=== PATIENT | male | born 1985 | race Caucasian/White ===

== ENCOUNTER 2018-11-18 09:28 | Outpatient (REF) | payer MEDICARE, MEDICAID, SELFPAY ==
[2018-11-18 14:36] LABS: Abs Immature Grans 0.01 k/cumm (0.0-0.09); Absolute Basophil Count 0.08 k/cumm (0.0-0.2); Absolute Eosinophil Count 0.72 k/cumm (0.0-0.7); Absolute Lymphocyte Count 3.22 k/cumm (1.2-3.4); Absolute Monocyte Count 0.96 k/cumm (0.11-0.7); Absolute Neutrophil Count 3.08 k/cumm (1.2-6.7); Eosinophils % 8.9; HCT 44.9 % (40.0-50.0); Immature Grans % 0.1; Lymphocytes % 39.9; Mean Corp. HGB Concentration 33.4 g/dL (32.0-36.0); Mean Corpuscular Hemoglobin 29.8 pg (27.0-33.0); Mean Corpuscular Volume 89.3 fL (80-95); Mean Platelet Volume 10.3 fL (8.0-11.0); Monocytes % 11.9; Neutrophils % 38.2; Platelet Count 417 x1000/uL (130-400); RBC 5.03 m/cumm (4.50-6.00); RBC Distribution Width 12.7 % (11.8-14.1); White Blood Cell Count 8.07 k/cumm (4.4-10.8)
[2018-11-18 14:59] LABS: TSH 1.44 uIU/mL (0.358-3.74)
[2018-11-18 15:23] LABS: ESR 8 MM/HR (0-15)
[2018-11-19 10:22] LABS: Cyclic Citrullinated Peptide <2.5 U/mL (<5.0)
[2018-11-19 11:22] LABS: Rheumatoid Factor 8 IU/mL (<12.5)
== END 2018-11-18 09:48 ==
LOC: NCHCN 09:28
PROVIDERS: PCP Nurse Practitioner Family; Visit Provider Nurse Practitioner Family
DX: M25.50 Pain in unspecified joint (principal); R73.9 Hyperglycemia, unspecified; M21.40 Flat foot [pes planus] (acquired), unspecified foot; M25.569 Pain in unspecified knee
CPT/HCPCS: 85652; 86200; 83036; 84443; 85025; 86431

== ENCOUNTER 2019-01-23 12:55 | Outpatient (REF) | payer MEDICARE, MEDICAID, SELFPAY ==
[2019-01-23 16:37] LABS: HCT 46.1 % (40.0-50.0); HGB 15.7 g/dL (13.5-17.5); Lymphocytes % 31.6; Mean Corp. HGB Concentration 34.1 g/dL (32.0-36.0); Mean Corpuscular Hemoglobin 29.6 pg (27.0-33.0); Mean Corpuscular Volume 86.8 fL (80-95); Mean Platelet Volume 9.9 fL (8.0-11.0); Monocytes % 11.9; Neutrophils % 52.5; Platelet Count 499 x1000/uL (130-400); RBC 5.31 m/cumm (4.50-6.00); RBC Distribution Width 12.5 % (11.8-14.1); White Blood Cell Count 8.89 k/cumm (4.4-10.8)
[2019-01-23 16:38] LABS: Abs Immature Grans 0.02 k/cumm (0.0-0.09); Absolute Basophil Count 0.07 k/cumm (0.0-0.2); Absolute Eosinophil Count 0.27 k/cumm (0.0-0.7); Absolute Lymphocyte Count 2.81 k/cumm (1.2-3.4); Absolute Monocyte Count 1.06 k/cumm (0.11-0.7); Absolute Neutrophil Count 4.66 k/cumm (1.2-6.7); Anion Gap 14.3 mmol/L (3-11); BUN 14 mg/dL (7-18); Basophils % 0.8; CO2 24.7 mmol/L (21.0-32.0); CREATININE 1.09 mg/dL (0.70-1.30); Calcium 9.8 mg/dL (8.5-10.1); Chloride 99 mmol/L (98-107); Glucose 99 mg/dL (70-100); Immature Grans % 0.2; Potassium 4.2 mmol/L (3.5-5.1); Sodium 138 mmol/L (136-145)
== END 2019-01-23 13:15 ==
LOC: NCHCN 12:55
PROVIDERS: PCP Nurse Practitioner Family; Visit Provider Nurse Practitioner Family
DX: F41.8 Other specified anxiety disorders (principal)
CPT/HCPCS: 80048; 85025

== ENCOUNTER 2019-04-08 22:20 | Outpatient (REF) | payer MEDICARE, MEDICAID, SELFPAY ==
[2019-04-08 21:50] LABS: Calculated LDL 141; Cholesterol 202 mg/dL (50-200); HDL Cholesterol 33 mg/dL (40-60); Triglyceride 142 mg/dL (30-150)
== END 2019-04-08 22:40 ==
LOC: NCHCN 22:20
PROVIDERS: PCP Nurse Practitioner Family; Visit Provider Nurse Practitioner Family
DX: E78.1 Pure hyperglyceridemia (principal)
CPT/HCPCS: 80061; 83721

== ENCOUNTER 2019-05-17 12:57 | Emergency (ER) | payer MEDICARE, MEDICAID, SELFPAY ==
[2019-05-17 13:07] VITALS: BP 140/93; PULSE 82; RESP 16; TEMP 36.8; O2SAT 99
[2019-05-17 13:46] VITALS: BP 142/90; PULSE 87; RESP 14; O2SAT 98
[2019-05-17 13:47] VITALS: RESP 14
--- NOTE | 2019-05-17 14:13 | ED.GENADUL_ITS ---
Discharge Plan Disposition Patient Disposition: HOME Discharge Details Chief Complaint: GenMedical Clinical Impression: Brain mass Primary Care Provider: Oanh Yang ED Provider: Rafa Samaniego Discharge Instructions Additional Instructions: Please follow-up with your primary care physician. Call on Saturday to arrange timely follow-up. Please follow-up with neurology as scheduled. Please contact your primary care physician to arrange follow-up. Return to the ER for any worsening or new concerning symptoms. 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 Patient does have slightly decreased sensation to light touch right forearm compared to left. Otherwise neurologically intact. Patient and his are significantly anxious about his condition. I am concerned that anxiety is contributing to patient's presentation today . Plan to obtain CT of the head. 16:40 --CT of the head interpreted by radiology: Probable right parietal meningioma. No acute intracranial findings. Mass is noted to be 16 mm partially calcified extra-axial in the right parietal area over the convexity and is most consistent with a benign meningioma. I reviewed the results with the patient. Patient was encouraged to follow-up with his primary care physician and with his neurologist. I explained that he may need additional diagnostic testing i ncluding MRI of the brain which is not available today. He has an appointment scheduled with neurology for next month. I encouraged him to call to confirm this appointment. Encouraged him to return to the ER for any worsening or new concerning symptoms. HPI General Mode of arrival: ambulatory . Date/Time Provider Initiated Documentation: 05/17/19 13:14 . Limitations to Documentation: no limitations . Information obtained by: patient . HPI Narrative: 33-year-old male with history of leukemia as a child status post chemotherapy and radiation to his brain remotely, here with chief complaint of confusion. Patient notes that over the past few months he has had increased confusion. He specifically notes that he feels like a ghost and that at time he loses track of time. He states that time seems to pass quicker than he perceives. Patient notes he was on Abilify a couple months ago and was concerned that this was causing his symptoms. He since stopped this over the past month. He notes that symptoms seem to be worse over the past few weeks. Symptoms are now severe. No modifiers. No associated numbness or weakness. No visual changes. No headache. No fever. Related Data Allergies Allergy/AdvReac Type Severity Reaction Status Date / Time Penicillins Allergy Severe Swelling/Ed Unverified 05/19/19 00:57 carie sertraline HCl [From Zoloft] Allergy Unknown Unverified 05/19/19 00:57 hydroxyzine AdvReac Intermediate Other (See Unverified 05/19/19 00:57 Comment) General Stated Complaint: GenMedical VINCENZO: 4 Review of Systems Review of Systems All systems reviewed & are unremarkable except as noted in HPI and below Constitutional Denies fever(s) and Denies headache(s) ENT Denies headache(s) Cardiovascular Denies chest pain and Denies dyspnea Respiratory Denies dyspnea Gastrointestinal Reports nausea Neurologic Reports as per HPI, Reports confusion, Denies headache(s), Denies seizure-like activity and Denies sensory deficit Psychiatric Reports anxiety, Reports confusion and Denies hallucinations [facility] Social History Smoking/Tobacco Use Status: Former Tobacco Use Alcohol Intake: never Drug use: Daily Substance use type: marijuana Do you feel safe at home: Yes Do you feel safe in your relationship?: Yes Exam Const General: cooperative and no acute distress HENMT Head: normocephalic and atraumatic Mouth: moist mucous membranes Eyes Conjunctivae: normal conjunctivae Sclera: normal sclerae Neck Neck: trachea midline and supple Resp Auscultation: clear to auscultation bilaterally, no rales, no rhonchi and no wheezes Cardio Jugular venous pressure: no JVD Rate: regular rate and not tachycardic Rhythm: regular rhythm GI Palpation: soft, not firm, no guarding, no masses, not rigid and nontender Skin General skin exam: no rashes or lesions noted Neuro General: awake, oriented x3 and tone normal Cranial Nerves: EOM intact bilaterally, facial strength normal, tongue midline, able to rotate head bilaterally, able to elevate shoulders bilaterally and other (rt eye strabismus chronic, chronic decreased visual acui) Cognition: normal cognition Speech: speech normal Gait: normal gait Motor: muscle tone normal throughout and strength 5/5 throughout Sensory Exam: other (mild decrease sensation to light touch RUE compared to LUE) Extrem General: no edema Psych Appearance: grossly normal Course Vital Signs Temperature 36.8 C 05/17/19 13:07 Pulse 82 05/17/19 13:07 Respiratory Rate 16 05/17/19 13:07 Blood Pressure 140/93 H 05/17/19 13:07 Pulse Oximetry 99 05/17/19 13:07 Temperature 36.8 C 05/17/19 13:07 Temperature Source Temporal Artery Scan 05/17/19 13:07 Pulse 87 05/17/19 13:46 Respiratory Rate 14 05/17/19 13:47 Respiratory Effort Non-Labored 05/17/19 13:47 Blood Pressure 142/90 H 05/17/19 13:46 Pulse Oximetry 98 05/17/19 13:46 Oxygen Delivery Method Room Air 05/17/19 13:46 Oxygen Flow Rate 0 05/17/19 13:46 Pain Level 0 05/17/19 13:07
--- NOTE | 2019-05-17 15:25 | DI.CT_ITS ---
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 There is normal wilson-white matter differentiation. No intracranial hemorrhage, acute territorial infarct, midline shift or mass effect is identified. The ventricles are intact. The basilar cisterns are patent. There is a 1.5 x 1.7 hyperdense well-circumscribed extraaxial lesion along the right high parietal convexity. The finding is most suggestive of a meningioma. No midline shift or mass effect results. No fluid levels are seen in the visualized paranasal sinuses. There is mild mucosal thickening seen on various sinuses. The mastoid air cells are well pneumatized. The calvarium is intact. IMPRESSION: 1. No acute intracranial process. 2. Well-circumscribed 1.7 cm hyperdense extraaxial lesion in the high right parietal convexity, most suggestive of a meningioma.
--- NOTE | 2019-05-17 15:35 | DI.VRAD_ITS ---
EXAM: CT Head Without Contrast EXAM DATE/TIME: 05/17/2019 2:13 PM CLINICAL HISTORY: 33 years old, male; Patient HX: Patient loosing track of time, increased confusion. HX of childhood leukemia at age 10. Radiation and chemo. Radiation to brain at age 10. Nothing recent with chemo or radiation. TECHNIQUE: Imaging protocol: Computed tomography images of the head without contrast. Coronal and sagittal reformatted images were created and reviewed. Radiation optimization: All CT scans at this facility use at least one of these dose optimization techniques: automated exposure control; mA and/or kV adjustment per patient size (includes targeted exams where dose is matched to clinical indication); or iterative reconstruction. COMPARISON: No relevant prior studies available. FINDINGS: Brain: Mild cerebral atrophy. No significant white matter changes. No hemorrhage. 16 mm partially calcified extra-axial mass noted in the right parietal area over the convexity. Mass is most consistent with a benign meningioma. Ventricles: Normal. No ventriculomegaly. Bones/joints: Unremarkable. No acute fracture. Sinuses: Mild mucosal thickening, paranasal sinuses. Mastoid air cells: Visualized mastoid air cells are well aerated. No mastoid effusion. Soft tissues: Unremarkable. IMPRESSION: Probable right parietal meningioma. No acute intracranial findings. Dictated and Authenticated by: José Miguel Louis MD. Ordering:MICAELA Craig MD
== END 2019-05-17 16:47 | disposition home or self-care (01) ==
PROVIDERS: Emergency Provider Student in an Organized Health Care Education/Training Program; PCP Nurse Practitioner Family
DX: R90.0 Intracranial space-occupying lesion found on diagnostic imaging of central nervous system (principal); F41.9 Anxiety disorder, unspecified; Z85.6 Personal history of leukemia; Z92.21 Personal history of antineoplastic chemotherapy; Z92.3 Personal history of irradiation
CPT/HCPCS: 99284; 70450

== ENCOUNTER 2019-05-19 00:50 | Emergency (ER) | payer MEDICARE, MEDICAID, SELFPAY ==
[2019-05-19 00:54] VITALS: BP 144/86; PULSE 107; RESP 18; TEMP 36.8; O2SAT 98
--- NOTE | 2019-05-19 01:29 | ED.GENADUL_ITS ---
Discharge Plan Disposition Patient Disposition: HOME Discharge Details Chief Complaint: Sorethroat Clinical Impression: Acute pharyngitis Primary Care Provider: Oanh Yang ED Provider: Rafa Samaniego Home Meds and New Rx's Prescriptions: Discontinued Lyrica 75 mg Capsule 75 mg PO BID RF: 0 Discharge Instructions Instructions: Pharyngitis (ED) Additional Instructions: Please drink plenty of fluids to stay hydrated. Please take ibuprofen over the counter. Take 600mg by mouth every 6 hours as needed for pain/inflammation. Please stop taking Lyrica. It is unclear if your current symptoms are a side effect of this medication. Discussed ongoing dosing of this medication with your doctor. Please contact your primary care physician to arrange follow-up. Call tomorrow. Return to the ER for any worsening or new concerning symptoms. Referrals: Oanh Yang [Primary Care Provider] - Discharge Data Discharge Date/Time-TO BE ENTERED AT DEPARTURE: 05/19/19 01:44 Medical Decision Making 33-year-old male here with acute pharyngitis. Airway intact. Rapid strep test negative. Suspect viral versus less likely reaction to new medication Abilify. Patient took ibuprofen prior to arrival. He was given a dose of Decadron 10 mg orally here. Patient noted significant improvement in symptoms while here in the emergency department. Plan for discharge with outpatient follow-up. Usual and customary discharge instructions were provided. HPI General Mode of arrival: ambulatory . Date/Time Provider Initiated Documentation: 05/19/19 01:06 . Limitations to Documentation: no limitations . Information obtained by: patient and family . HPI Narrative: 33-year-old male presents with chief complaint of sore throat. Patient notes he woke up tonight around midnight with sore throat. Sore throat is moderate. No modifiers. No associated fever. No difficulty swallowing. He notes that he was asleep on his back and felt like he was having trouble breathing in that position. He took some ibuprofen and sitting up he is having no difficulty breathing. No associated rash. Patient notes he recently started Lyrica about 24 hours ago. Related Data Allergies Allergy/AdvReac Type Severity Reaction Status Date / Time Penicillins Allergy Severe Swelling/Ed Unverified 05/19/19 00:57 carie sertraline HCl [From Zoloft] Allergy Unknown Unverified 05/19/19 00:57 hydroxyzine AdvReac Intermediate Other (See Unverified 05/19/19 00:57 Comment) General Stated Complaint: Sorethroat VINCENZO: 4 Review of Systems Constitutional Denies fever(s) ENT Reports as per [facility] Social History Smoking/Tobacco Use Status: Former Tobacco Use Alcohol Intake: never Drug use: Daily Substance use type: marijuana Do you feel safe at home: Yes Do you feel safe in your relationship?: Yes Exam Const General: cooperative and no acute distress HENMT Head: normocephalic Ears: external ears normal, TM's normal bilaterally and mastoids normal General nose exam: external nose normal Mouth: moist mucous membranes Throat: uvula midline, abnormal tonsil bilaterally erythema and hypertrophy 2+, no peritonsillar masses and other (no trismus) Eyes Conjunctivae: normal conjunctivae Sclera: normal sclerae Neck Neck: trachea midline, supple and no lymphadenopathy noted Resp Auscultation: clear to auscultation bilaterally, no rales, no rhonchi and no wheezes Cardio Rate: regular rate and not tachycardic Rhythm: regular rhythm Skin General skin exam: no rashes or lesions noted Neuro General: alert, awake and tone normal Course Vital Signs Temperature 36.8 C 05/19/19 00:54 Pulse 107 H 05/19/19 00:54 Respiratory Rate 18 05/19/19 00:54 Blood Pressure 144/86 H 05/19/19 00:54 Pulse Oximetry 98 05/19/19 00:54 Temperature 36.8 C 05/19/19 00:54 Temperature Source Skin 05/19/19 00:54 Pulse 107 H 05/19/19 00:54 Respiratory Rate 18 05/19/19 00:54 Respiratory Effort Non-Labored 05/19/19 00:56 Blood Pressure 144/86 H 05/19/19 00:54 Blood Pressure Position Sitting 05/19/19 00:54 Pulse Oximetry 98 05/19/19 00:54 Oxygen Delivery Method Room Air 05/19/19 00:54 Oxygen Flow Rate 0 05/19/19 00:54 Pain Level 8 05/19/19 00:54 Lab/Test Results Lab/Test Results: 05/19/19 01:00 Pharynx Streptococcus Screen (CARLOS) - Pending POC Strep Test-JOZEF(Rapid) Start: 05/19/19 01:04 Freq: .Rapid Strep Test Status: Active Protocol: Document 05/19/19 01:11 RD (Rec: 05/19/19 01:11 RD [email or web address]) Strep test-JOZEF(Rapid)-POC POC-Strep test-JOZEF (Rapid) Negative POC-Strep test-JOZEF (Rapid) Negative
[2019-05-19] MEDS: Dexamethasone 10 MG/ML VIAL PO (01:33)
[2019-05-19] MEDS: Acetaminophen 325 MG TAB 650 MG PO (01:33)
== END 2019-05-19 01:44 | disposition home or self-care (01) ==
PROVIDERS: Emergency Provider Student in an Organized Health Care Education/Training Program; PCP Nurse Practitioner Family
DX: J02.9 Acute pharyngitis, unspecified (principal)
CPT/HCPCS: 87880; 99283; 87081; J1100

== ENCOUNTER 2019-05-25 10:45 | Emergency (ER) | payer MEDICARE, SELFPAY ==
[2019-05-25 10:48] VITALS: BP 151/105; PULSE 92; RESP 18; TEMP 37.1; O2SAT 100
--- NOTE | 2019-05-25 11:00 | ED.GENADUL_ITS ---
Discharge Plan Disposition Patient Disposition: HOME Condition: Improving Discharge Details Chief Complaint: GenMedical Clinical Impression: Anxiety Primary Care Provider: Oanh Yang ED Provider: Trey Florez Home Meds and New Rx's Prescriptions: New alprazolam 0.5 mg tablet 0.5 mg PO BID PRN (Reason: anxiety) Qty: 7 RF: 0 No Action trazodone 50 mg Tablet 25 mg PO BID RF: 0 Lyrica 75 mg Capsule 75 mg PO DAILY RF: 0 Discharge Instructions Instructions: Anxiety (ED) Additional Instructions: Follow-up with [facility] on Saturday as planned. May use the prescribed alprazolam for severe panic if needed. You may require further long-term management of your anxiety as we discussed. Continue your plan for follow-up with MRI imaging. Return to the emergency department for any acute concern Medical Decision Making 33-year-old male presents from home complaining of anxiety regarding recent CT scan which showed a small meningioma. He has been referred for further work-up including MRI but has worries that this is not happening fast enough. He has intermittent panic attacks in which he has increased respiratory rate and becomes more and more anxious. He is not had syncope. No new neurologic findings. He does have a referral for follow-up. He also has a follow-up with [facility] this Saturday. I will treat him with a trial of a small number of anxiolytic to be used on a as needed basis only. He understands a further prescriptions to manage his anxiety will have to come from his psychologist, psychiatrist, or primary care physicians HPI General Mode of arrival: ambulatory . Date/Time Provider Initiated Documentation: 05/25/19 10:49 . Limitations to Documentation: no limitations . Information obtained by: patient . History of Present Illness 33 year old M presents to the emergency department with the chief complaint of Anxiety regarding recent CT that showed meningioma, described as moderate, Quality is described as constant, Patient reports radiation to (General). Patient started experiencing this day(s) and it has been constant. No relieving factors improve symptom(s), No exacerbating factors reported . Patient notes denies headaches and nausea/vomiting. Patient did receive the following treatments prior to arrival, none Related Data Home Medications Medication Instructions Recorded Confirmed alprazolam 0.5 mg PO BID PRN #7 tab 05/25/19 pregabalin [Lyrica] 75 mg PO DAILY 05/25/19 05/25/19 trazodone 25 mg PO BID 05/25/19 05/25/19 Previous Rx's Medication Instructions Recorded alprazolam 0.5 mg PO BID PRN #7 tab 05/25/19 Allergies Allergy/AdvReac Type Severity Reaction Status Date / Time Penicillins Allergy Severe Swelling/Ed Unverified 05/25/19 10:52 carie sertraline HCl [From Zoloft] Allergy Unknown Unverified 05/25/19 10:52 hydroxyzine AdvReac Intermediate Other (See Unverified 05/25/19 10:52 Comment) General Stated Complaint: GenMedical VINCENZO: 3 Review of Systems Review of Systems 6 systems reviewed and otherwise - [facility] Medical History Anxiety (Chronic) Social History Smoking/Tobacco Use Status: Former Tobacco Use Alcohol Intake: never Drug use: Daily Substance use type: marijuana Do you feel safe at home: Yes Do you feel safe in your relationship?: Yes Exam Narrative Exam Narrative: GEN: awake, alert, oriented 3. Pleasant, well groomed, inte ractive. HEAD: Normocephalic, atraumatic ENT: Mucous membranes moist, oropharynx unremarkable, External ear exam unremarkable EYES: PERRL, EOMI, mild disconjugate gaze NECK: Full ROM, no SUZANNE, no menigismus CHEST/RESP: Nontender, clear to auscultation bilateral, no wheeze/rhonchi/rales CARDIOVASCULAR: RRR, no murmur, rub keith. 2+ Rad pulse bilateral ABDOMEN: Soft, nontender, no mass. +Bowel sounds EXT: Full ROM, no edema, no rash Neuro: Grossly normal neurologic exam, conversant, interactive. Psych: Speech fluent, thoughts congruent, affect normal Course Vital Signs Temperature 37.1 C 05/25/19 10:48 Pulse 92 H 05/25/19 10:48 Respiratory Rate 18 05/25/19 10:48 Blood Pressure 151/105 H 05/25/19 10:48 Pulse Oximetry 100 05/25/19 10:48 Temperature 37.1 C 05/25/19 10:48 Temperature Source Skin 05/25/19 10:48 Pulse 92 H 05/25/19 10:48 Respiratory Rate 18 05/25/19 10:48 Blood Pressure 151/105 H 05/25/19 10:48 Pulse Oximetry 100 05/25/19 10:48 Oxygen Delivery Method Room Air 05/25/19 10:48 Oxygen Flow Rate 0 05/25/19 10:48 Pain Level 0 05/25/19 10:48
--- NOTE | 2019-05-25 11:25 | NUR.NOTE ---
Nursing Note: patient examined by MD neri, patient discharged with medications, patient home with spouse
== END 2019-05-25 11:15 | disposition home or self-care (01) ==
LOC: ER 11:50
PROVIDERS: Emergency Provider Emergency Medicine; PCP Nurse Practitioner Family
DX: F41.0 Panic disorder [episodic paroxysmal anxiety] (principal); D32.9 Benign neoplasm of meninges, unspecified
CPT/HCPCS: 99283

== ENCOUNTER 2019-05-25 15:14 | Emergency (ER) | payer MEDICARE, MEDICAID, SELFPAY ==
[2019-05-25 15:31] VITALS: BP 148/106; PULSE 86; RESP 20; TEMP 36.8; O2SAT 99
--- NOTE | 2019-05-25 17:45 | W.ED.GENAD ---
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 You may turn the emergency department as needed for reassessment. [facility]errals[facility]Provider [facility]] (Call their office for arrangement of follow-up appointment) Oanh Yang [Primary Care Provider] - (As needed for reassessment or if not improving) Discharge Data Discharge Date/Time-TO BE ENTERED AT DEPARTURE: 05/25/19 18:00 Medical Decision Making Patient presenting to the emergency department for continued complaint of anxiety. Patient states that he attempted to swallow the anxiety pill that was written for him earlier and felt that it got caught in his throat. Physical exam shows no acute findings. Patient has symptoms of mild anxiety but otherwise no specific physical exam findings to warrant any emergent concern. I do feel that patient's condition is psychological in nature and not physical. Patient is here with his significant other who also is having some anxiety issues. Patient is stating that Xanax is what typically works for him but I clearly informed him that we would not be prescribing any more or anti-lytics as he already got one earlier on his visit with Dr. Florez. After thorough discussion of anxiety and stress disorder patient was clear and stable and requesting referral to [facility] for any further discussion of his psychological condition which I feel is warranted. HPI General Mode of arrival: ambulatory. Date/Time Provider Initiated Documentation: 05/25/19 15:58. Limitations to Documentation: no limitations. Information obtained by: patient and RN notes reviewed. History of Present Illness 33 year old M presents to the emergency department with the chief complaint of anxiety, described as moderate and similar to prior episodes, Quality is described as other (denies pain ), Patient started experiencing this day(s) (1) and it has been constant. No relieving factors improve symptom(s), Other factors that worsen symptoms (stress) . Patient did receive the following treatments prior to arrival, other (Xanax) Related Data Home Medications Medication Instructions Recorded Confirmed alprazolam 0.5 mg PO DAILY #7 tab 05/29/19 fluoxetine 20 mg PO DAILY 05/29/19 05/29/19 gabapentin 100 mg PO BID 05/29/19 05/29/19 Previous Rx's Medication Instructions Recorded alprazolam 0.5 mg PO DAILY #7 tab 05/29/19 Allergies Allergy/AdvReac Type Severity Reaction Status Date / Time Penicillins Allergy Severe Swelling/Ed Unverified 05/25/19 10:52 carie sertraline HCl [From Zoloft] Allergy Unknown Unverified 05/25/19 10:52 hydroxyzine AdvReac Intermediate Other (See Unverified 05/25/19 10:52 Comment) General Stated Complaint: Anxiety VINCENZO: 4 Review of Systems Constitutional Denies fever(s) and Denies headache(s) ENT Denies headache(s), Denies hoarseness and Reports other (Feeling of tightness in his throat during anxiety attack) Cardiovascular Reports chest pain (Chest tightness during anxiety attacks), Denies syncope, Denies palpitations and Denies dyspnea Respiratory Denies cough and Denies dyspnea Gastrointestinal Denies abdominal pain, Denies diarrhea, Denies nausea and Denies vomiting Genitourinary Denies dysuria Neurologic Denies syncope and Denies headache(s) Endocrine Denies palpitations [facility] Social History Smoking/Tobacco Use Status: Former Tobacco Use Alcohol Intake: never Drug use: Daily Substance use type: marijuana Do you feel safe at home: Yes Do you feel safe in your relationship?: Yes Exam Const General: cooperative, healthy appearing, comfortable, no acute distress, not diaphoretic and not ill appearing Orientation: alert, awake and oriented x3 HENMT Head: normal to inspection Mouth: oral mucosae normal, lip normal, tongue normal, oropharynx normal, no audible dysphonia, no drooling, no muffled voice and no trismus Throat: posterior oropharynx normal, tonsils normal and uvula midline Neck Neck: normal visual inspection, full ROM, no lymphadenopathy, trachea midline, supple and no anterior neck swelling Carotids: normal carotid upstroke and no bruits Resp Effort & Inspection: normal respiratory effort and able to speak in complete sentences Auscultation: clear to auscultation bilaterally Cardio Jugular venous pressure: no JVD Rate: regular rate Rhythm: regular rhythm Heart Sounds: S1 normal, S2 normal, no click, no gallops, no murmurs and no rubs Bruits: no carotid bruits Pulses: radial pulses present bilaterally 2+ Course Vital Signs Temperature 36.8 C 05/25/19 15:31 Pulse 86 05/25/19 15:31 Respiratory Rate 20 05/25/19 15:31 Blood Pressure 148/106 H 05/25/19 15:31 Pulse Oximetry 99 05/25/19 15:31 Temperature 36.8 C 05/25/19 15:31 Temperature Source Skin 05/25/19 15:31 Pulse 86 05/25/19 15:31 Respiratory Rate 20 05/25/19 15:31 Blood Pressure 148/106 H 05/25/19 15:31 Blood Pressure Position Sitting 05/25/19 15:31 Pulse Oximetry 99 05/25/19 15:31 Oxygen Delivery Method Room Air 05/25/19 15:31 Oxygen Flow Rate 0 05/25/19 15:31 Pain Level 0 05/25/19 15:31
== END 2019-05-25 18:00 | disposition home or self-care (01) ==
PROVIDERS: Emergency Provider Nurse Practitioner Family; PCP Nurse Practitioner Family
DX: F41.0 Panic disorder [episodic paroxysmal anxiety] (principal)
CPT/HCPCS: 99283

== ENCOUNTER 2019-05-29 18:30 | Emergency (ER) | payer MEDICARE, MEDICAID, SELFPAY ==
[2019-05-29 18:36] VITALS: BP 156/88; PULSE 86; RESP 16; TEMP 37.1; O2SAT 98
--- NOTE | 2019-05-29 18:42 | NUR.NOTE ---
Nursing Note: pt ambulated to room 9 without difficulty. steady gait noted. Significant other at bedside.
[2019-05-29 18:47] VITALS: RESP 16
[2019-05-29] MEDS: ALPRAZolam 0.25 MG TAB PO (19:27)
--- NOTE | 2019-05-29 20:06 | NUR.NOTE ---
Nursing Note: pt resting in bed, states that he feels anxious
--- NOTE | 2019-05-29 20:07 | NUR.NOTE ---
Nursing Note: pt resting in stretcher with family at bedside. states that he feels awesome
--- NOTE | 2019-05-29 20:21 | ED.GENADUL_ITS ---
Discharge Plan Disposition Patient Disposition: HOME Discharge Details Clinical Impression: Anxiety Primary Care Provider: Oanh Yang ED Provider: Rafa Samaniego Home Meds and New Rx's Prescriptions: Continued gabapentin 100 mg Capsule 100 mg PO BID RF: 0 fluoxetine 20 mg Capsule 20 mg PO DAILY RF: 0 Changed alprazolam 0.5 mg tablet 0.5 mg PO DAILY Qty: 7 RF: 0 Discharge Instructions Instructions: Anxiety (ED) Additional Instructions: Please follow-up with your doctor. Call on Saturday to arrange timely follow-up. Return to the ER for any worsening or new concerning symptoms. Referrals: Oanh Yang [Primary Care Provider] - Medical Decision Making 33-year-old male with history of PTSD, anxiety disorder, here with anxiety after starting gabapentin. Screening ECG performed by nursing was reviewed and interpreted by me: Normal sinus rhythm 94 bpm, incomplete right bundle branch block noted, horizontal axis, nondiagnostic. Patient notes the only thing that helps his anxiety is Xanax. His psychiatrist has refused to give him Xanax. He was seen here in the emerge department recently and prescribed a short course of Xanax which seemed to help his symptoms. Again today he is experience severe anxiety. I will again provide a short course of Xanax. I instructed him to only use this if it is absolutely necessary for severe anxiety attack like he experienced today. I encouraged him to follow-up with his primary care physician and his psychiatrist. I encouraged him to talk with his psychiatrist about continued prescribing of benzodiazepine given therapeutic benefit. Patient seems agreeable to having pill counts or other contract if there is any concern for abuse or drug diversion -I do not have these concerns after prolonged discussion with the patient. I instructed him to hold gabapentin and discussed ongoing dosing with his physician and psychiatrist. Usual and customary discharge instructions were provided. HPI General Mode of arrival: ambulatory . Date/Time Provider Initiated Documentation: 05/29/19 18:47 . Limitations to Documentation: no limitations . Information obtained by: patient . 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 Patient notes he was started on gabapentin recently and was feeling groggy after taking this today. He then notes that he developed feeling of anxiety and had rapid respirations and tingling in his fingertips and around his lips. Anxiety was severe - felt overwhelming. He is feeling better now although still has some anxiety. Patient denies any swelling. No rash. No nausea or vomiting. No headache. Related Data Home Medications Medication Instructions Recorded Confirmed alprazolam 0.5 mg PO DAILY #7 tab 05/29/19 fluoxetine 20 mg PO DAILY 05/29/19 05/29/19 gabapentin 100 mg PO BID 05/29/19 05/29/19 Previous Rx's Medication Instructions Recorded alprazolam 0.5 mg PO DAILY #7 tab 05/29/19 Allergies Allergy/AdvReac Type Severity Reaction Status Date / Time Penicillins Allergy Severe Swelling/Ed Unverified 05/25/19 10:52 carie sertraline HCl [From Zoloft] Allergy Unknown Unverified 05/25/19 10:52 hydroxyzine AdvReac Intermediate Other (See Unverified 05/25/19 10:52 Comment) General Stated Complaint: Anxiety VINCENZO: 4 Review of Systems Review of Systems All systems reviewed & are unremarkable except as noted in HPI and below Constitutional Denies fever(s) Cardiovascular Denies syncope, Denies dyspnea and Reports other (Patient notes he had some pressure in his chest with anxiety) Respiratory Denies dyspnea Neurologic Denies syncope and Denies focal weakness Psychiatric Reports anxiety [facility] Medical History Anxiety (Chronic) Social History Smoking/Tobacco Use Status: Former Tobacco Use Alcohol Intake: never Drug use: Daily Substance use type: marijuana Do you feel safe at home: Yes Do you feel safe in your relationship?: Yes Exam Const General: cooperative and no acute distress HENMT Head: normocephalic and atraumatic Mouth: moist mucous membranes Throat: posterior oropharynx normal Eyes Conjunctivae: normal conjunctivae Sclera: normal sclerae EOM: EOM intact bilaterally Neck Neck: trachea midline, supple and no lymphadenopathy noted Resp Auscultation: clear to auscultation bilaterally, no rales, no rhonchi and no wheezes Cardio Jugular venous pressure: no JVD Rate: regular rate and not tachycardic Rhythm: regular rhythm GI Palpation: soft, not firm, no guarding, no masses, not rigid and nontender Skin General skin exam: no rashes or lesions noted Neuro General: alert, awake, oriented x3 and tone normal Extrem General: no edema Psych Appearance: grossly normal Mental Status: mental status grossly normal Speech and Movement: speech and movement normal Course Vital Signs Temperature 37.1 C 05/29/19 18:36 Pulse 86 05/29/19 18:36 Respiratory Rate 16 05/29/19 18:36 Blood Pressure 156/88 H 05/29/19 18:36 Pulse Oximetry 98 05/29/19 18:36 Temperature 37.1 C 05/29/19 18:36 Temperature Source Skin 05/29/19 18:36 Pulse 86 05/29/19 18:36 Respiratory Rate 16 05/29/19 18:47 Respiratory Effort Non-Labored 05/29/19 18:47 Respiratory Depth Normal 05/29/19 18:47 Respiratory Pattern Normal 05/29/19 18:47 Blood Pressure 156/88 H 05/29/19 18:36 Blood Pressure Position Supine 05/29/19 18:36 Pulse Oximetry 98 05/29/19 18:36 Oxygen Delivery Method Room Air 05/29/19 18:36 Oxygen Flow Rate 0 05/29/19 18:36
== END 2019-05-29 20:34 | disposition home or self-care (01) ==
PROVIDERS: Emergency Provider Student in an Organized Health Care Education/Training Program; PCP Nurse Practitioner Family
DX: F41.9 Anxiety disorder, unspecified (principal); I45.19 Other right bundle-branch block
CPT/HCPCS: 93005; 99283; 93010

== ENCOUNTER 2019-06-03 19:37 | Emergency (ER) | payer MEDICARE, MEDICAID, SELFPAY ==
[2019-06-03 19:44] VITALS: BP 105/86; PULSE 75; RESP 20; TEMP 36.5; O2SAT 99
[2019-06-03 19:50] VITALS: RESP 18
--- NOTE | 2019-06-03 20:06 | ED.GENADUL_ITS ---
Discharge Plan Disposition Patient Disposition: HOME Condition: Fair Discharge Details Chief Complaint: Anxiety Clinical Impression: Anxiety, Benzodiazepine withdrawal Primary Care Provider: Oanh Yang ED Provider: Ann Cm Home Meds and New Rx's Prescriptions: New alprazolam [Xanax] 0.25 mg tablet 0.25 mg PO BID PRN (Reason: anxiety) Qty: 7 RF: 0 Continued buspirone 5 mg Tablet 5 mg PO BID RF: 0 fluoxetine 20 mg Capsule 20 mg PO DAILY RF: 0 alprazolam 0.5 mg tablet 0.5 mg PO DAILY PRNQty: 7 RF: 0 Discharge Instructions Instructions: Alprazolam (By mouth), Anxiety (ED) Additional Instructions: Encourage hydration. Please make changes to dosing as advised by primary care, take only 1/2 tab of buspirone as advised. You have been prescribed xanax as I am concerned you are withdrawing. Please take this only as prescribed and only as needed. Try to cut back as much as possible. Please call your primary care tomorrow to schedule appointment Saturday for reevaluation. If you develop and new/worsening symptoms please seek care urgently once again. Referrals: Oanh Yang [Primary Care Provider] - Medical Decision Making Patient is a 33 cynthia old male, accompanied by significant other, with c/c of anxiety. Concerned for possible benzodiazepine and marijuana withdrawal. He reports feeling improved, not anxious currently. His feeling of anxiety attack has subsided. He has been using benzodiazepines as precribed in the ER, prior to that from the street, for several months and stopped yesterday. Also stopped marijuana yesterday after being an olympic smoker. Patient and his significant other report they have both stopped and are trying to be more healthy to help with his anxiety. He has started his buspirone. Was advised by PCP to only use 1/2 tab BID for the next week as the first caused him to be very drowsy. He has good insight, denies SI or HI. Concerned for withdrawl. Will prescribed short course of Xanax which the patient will use to cut back his benzo usage. He was given usage guidelines. Advised that this may also be associated with his abrubt marijuana cessation. He has appointment with psychologist next week. Advised f/u with PCP this week. He was given strict return precautions. Reviewed PDMP. All of his questions and concerns were addressed, he is in agreement with this plan. HPI General Mode of arrival: ambulatory . Date/Time Provider Initiated Documentation: 06/03/19 19:38 . Limitations to Documentation: no limitations . Information obtained by: patient, family (significant other) and RN notes reviewed . HPI Narrative: Patient is a 33 year old male with history of anxiety presenting today with c/c of anxiety, feeling shaky, and like he is having an anxiety attack. since being in [facility], symptoms have largely resolved. He reports that he had been using Xanax, largely off the street, for the past several months. State that he would use 1mg daily, on average, and break this over 3-4 doses per day. Reports that he stopped this cold yesterday. Began buspirone today as prescribed by his psychologist. Reports that the first dosing this mornign sedated him. Reports this afternoon he took1/2 dose and is currently feeling much improved. Also reports that he was smoking copious amount of marijuana daily. States this too he stopped cold at the advisement of his psychologist. Denies CP. Is not SOB at this time. Denies exertional dyspnea. Has been seen multiple times here as [place] [facility] [place]. Denies SI or HI. Related Data Home Medications Medication Instructions Recorded Confirmed fluoxetine 20 mg PO DAILY 05/29/19 06/03/19 alprazolam 0.5 mg PO DAILY PRN #7 tab 06/03/19 06/03/19 alprazolam [Xanax] 0.25 mg PO BID PRN #7 tab 06/03/19 buspirone 5 mg PO BID 06/03/19 06/03/19 Previous Rx's Medication Instructions Recorded alprazolam 0.5 mg PO DAILY PRN #7 tab 06/03/19 alprazolam [Xanax] 0.25 mg PO BID PRN #7 tab 06/03/19 Allergies Allergy/AdvReac Type Severity Reaction Status Date / Time Penicillins Allergy Severe Swelling/Ed Unverified 06/03/19 19:47 carie sertraline HCl [From Zoloft] Allergy Unknown Unverified 06/03/19 19:47 hydroxyzine AdvReac Intermediate Other (See Unverified 06/03/19 19:47 Comment) General Stated Complaint: Anxiety VINCENZO: 4 Review of Systems Constitutional Reports as per HPI, Denies chills, Denies fatigue, Denies fever(s), Denies he adache(s) and Denies weakness Eyes Denies change in vision ENT Denies headache(s) Cardiovascular Reports as per HPI, Denies chest pain, Denies lightheadedness, Denies dyspnea and Denies dyspnea on exertion Respiratory Reports as per HPI, Denies cough, Denies dyspnea and Denies dyspnea on exertion Gastrointestinal Reports as per HPI, Denies abdominal pain, Denies change in bowel habits, Denies nausea and Denies vomiting Genitourinary Denies system reviewed and no additional complaints, except as docu (denies any change in urinary habits) Musculoskeletal Denies abnormal gait Integumentary/Breasts Reports as per HPI and Denies rash Neurologic Denies abnormal movements, Denies abnormal speech, Denies abnormal gait, Denies headache(s), Denies paresthesias and Denies weakness Endocrine Denies fatigue PFSH Medical History Anxiety (Chronic) Social History Smoking/Tobacco Use Status: Former Tobacco Use Alcohol Intake: never Drug use: Daily Substance use type: marijuana Details: has been cutting back on marijuana use- was using daily now hasnt used in a few weeks Do you feel safe at home: Yes Do you feel safe in your relationship?: Yes Exam Const General: cooperative, healthy appearing, comfortable, no acute distress, well developed and well groomed Nutritional Appearance: well nourished and overweight Orientation: alert and awake Eyes General: appearance normal, both eyes and all related structures Resp Effort & Inspection: normal respiratory effort, able to speak in complete sentences and no respiratory distress Auscultation: clear to auscultation bilaterally, no rales, no rhonchi and no wheezes Cardio Rate: regular rate Rhythm: regular rhythm Heart Sounds: S1 normal and S2 normal Skin General skin exam: no rashes or lesions noted Trauma: no lacerations or abrasions Neuro General: alert and awake Cognition: normal cognition Speech: speech normal Gait: normal gait Psych Appearance: grossly normal and well kempt Mental Status: mental status grossly normal Speech and Movement: speech and movement normal Mood: congruent mood Affect: normal affect Attitude: cooperative Thought Process: normal Thought Content: normal Insight: insight good Judgment: judgment good Course Vital Signs Temperature 36.5 C 06/03/19 19:44 Pulse 75 06/03/19 19:44 Respiratory Rate 20 06/03/19 19:44 Blood Pressure 105/86 06/03/19 19:44 Pulse Oximetry 99 06/03/19 19:44 Temperature 36.5 C 06/03/19 19:44 Temperature Source Skin 06/03/19 19:44 Pulse 75 06/03/19 19:44 Respiratory Rate 18 06/03/19 19:50 Respiratory Effort 06/03/19 19:50 Respiratory Depth Normal 06/03/19 19:50 Respiratory Pattern Normal 06/03/19 19:50 Blood Pressure 105/86 06/03/19 19:44 Blood Pressure Position Sitting 06/03/19 19:44 Pulse Oximetry 99 06/03/19 19:44 Oxygen Delivery Method Room Air 06/03/19 19:44 Oxygen Flow Rate 0 06/03/19 19:44
[2019-06-03] MEDS: ALPRAZolam 0.5 MG TAB PO (20:48)
== END 2019-06-03 20:51 | disposition home or self-care (01) ==
PROVIDERS: Emergency Provider Physician Assistant; PCP Nurse Practitioner Family
DX: F13.239 Sedative, hypnotic or anxiolytic dependence with withdrawal, unspecified (principal); F41.9 Anxiety disorder, unspecified; F12.23 Cannabis dependence with withdrawal
CPT/HCPCS: 99283

== ENCOUNTER 2019-06-04 16:32 | Emergency (ER) | payer MEDICARE, MEDICAID, SELFPAY ==
[2019-06-04 16:37] VITALS: BP 144/96; PULSE 94; RESP 16; TEMP 36.7; O2SAT 98
--- NOTE | 2019-06-04 17:44 | ED.GENADUL_ITS ---
Discharge Plan Disposition Patient Disposition: HOME Condition: Good Discharge Details Chief Complaint: GenMedical Clinical Impression: Fatigue, Anxiety Primary Care Provider: Oanh Yang ED Provider: Sergey Garcia Home Meds and New Rx's Prescriptions: No Action buspirone 5 mg Tablet 5 mg PO BID RF: 0 alprazolam [Xanax] 0.25 mg tablet 0.25 mg PO BID PRN (Reason: anxiety) Qty: 7 RF: 0 fluoxetine 20 mg Capsule 20 mg PO DAILY RF: 0 alprazolam 0.5 mg tablet 0.5 mg PO DAILY PRNQty: 7 RF: 0 Discharge Instructions Instructions: Anxiety (ED) Additional Instructions: At this time. Intracranial pressures look normal on the ultrasound of your optic nerve and eye. You have a normal neurologic exam and normal vital signs. As we discussed together at this time I feel your excessive fatigue is most likely secondary to too many anxiety medications at once. As we discussed please stop taking the buspirone, continue taking your fluoxetine, and take your Xanax only as absolutely needed. If you have any concerns or questions please do not hesitate to call me here at the emergency department to discuss your concerns. Please follow-up closely with your PCP, and psychiatrist. If you notice any worsening of your symptoms, or any new symptoms such as vomiting, diarrhea, fever, chills, shortness of breath, chest pain, numbness, weakness, or fainting , please return immediately to the emergency department for reevaluation. Please follow up with your primary care provider as soon as possible for reassessment and reevaluation. As always, it was a pleasure participating in your medical care today. Referrals: Oanh Yang [Primary Care Provider] - Discharge Data Discharge Date/Time-TO BE ENTERED AT DEPARTURE: 06/04/19 18:10 Medical Decision Making This is a 33-year-old male with a past medical history of known 1.7 cm meningioma, scheduled outpatient MRI, leukemia as a child, traumatic brain injury, who has had multiple recent a evaluations in the ED for anxiety. He presents today for evaluation of being anxious over fatigue. Patient is chronically on fluoxetine, but recently was started on buspirone as well as Xanax as needed over the last 48 hours. Since taking both of these he has noticed that he has been significantly fatigued. This has caused him to be notably anxious. He denies any other complaints. No new headache, no new numbn ess or tingling. No other complaints whatsoever. Physical exam demonstrates no acute focal neurologic deficits. Bedside ultrasound demonstrates normal ocular ultrasound, including normal optic nerve diameter suggesting no evidence of significant intracranial hypertension. No evidence of papilledema. At this time with no focal neurologic deficits or other acute neurologic findings I feel the signs and symptoms are most likely iatrogenic secondary to the notable increase in medications of buspirone with Xanax in addition to his fluoxetine. No current clinical indication for repeat emergent neuroimaging. We discussed the risks and benefits of potential imaging the patient and family agree that they would like to hold off for the time being. Will recommend that the patient stops his buspirone, and takes Xanax only as needed. I also recommended that he calls here to the ER to personally speak with me over the weekend if I am working if he does have any episodes of anxiety which I would love to help walk him through personally. We also elicited the help of case management, they have discussed with the patient outpatient resources to be used as needed. I have extensively reviewed the treatment plan and discharge instructions with the patient and their family. I have addressed all patient concerns at this time. The patient and family was made aware of what symptoms to monitor for that would warrant a return to the emergency department. Discussed the plan with the patient and family, they demonstrate verbal understanding and agreement with our assessment and plan at this time. HPI General Date/Time Provider Initiated Documentation: 06/04/19 16:43 . HPI Narrative: This is a 33-year-old male with a past medical history of notable anxiety, history of a known meningioma at 1.7 cm with scheduled MRI outpatient, who has had multiple recent visits to the emergency department for anxiety. He presents today for evaluation of being anxious because of fatigue. Patient had been on fluoxetine, was recently started on buspirone, and has been taking as needed Xanax on a regular daily basis. He states that since he started the buspirone and Xanax together yesterday he has been notably fatigued. This is caused him to be very fearful, so he came in for further evaluation. He denies any other acute changes. He denies any fever, chills, numbness, tingling, weakness, chest pain, shortness of breath, vomiting, diarrhea. He denies any new modifying factors. He states that the medications definitely make him feel more fatigued. Related Data Home Medications Medication Instructions Recorded Confirmed fluoxetine 20 mg PO DAILY 05/29/19 06/03/19 alprazolam 0.5 mg PO DAILY PRN #7 tab 06/03/19 06/03/19 alprazolam [Xanax] 0.25 mg PO BID PRN #7 tab 06/03/19 buspirone 5 mg PO BID 06/03/19 06/03/19 Previous Rx's Medication Instructions Recorded alprazolam 0.5 mg PO DAILY PRN #7 tab 06/03/19 alprazolam [Xanax] 0.25 mg PO BID PRN #7 tab 06/03/19 Allergies Allergy/AdvReac Type Severity Reaction Status Date / Time Penicillins Allergy Severe Swelling/Ed Unverified 06/03/19 19:47 carie sertraline HCl [From Zoloft] Allergy Unknown Unverified 06/03/19 19:47 hydroxyzine AdvReac Intermediate Other (See Unverified 06/03/19 19:47 Comment) General Stated Complaint: PsychEval VINCENZO: 4 Review of Systems Review of Systems All systems reviewed & are unremarkable except as noted in HPI and below PFSH Social History Smoking/Tobacco Use Status: Former Tobacco Use Alcohol Intake: never Drug use: Daily Substance use type: marijuana Details: has been cutting back on marijuana use- was using daily now hasnt used in a few weeks Do you feel safe at home: Yes Do you feel safe in your relationship?: Yes Exam Narrative Exam Narrative: 1.Const: Well-nourished, Well-developed, appearing stated age 2.Eyes: PERRL, no conjunctival injection, and symmetrical lids. Notable exotropia for the right 3.ENT: Atraumatic external nose and ears. Moist MM. Neck: Symmetric, trachea midline, No thyromegaly. Patient demonstrates good movement of cervical neck. There is no nuchal rigidity, no nuchal tenderness. Patient is able to flex the neck without any difficulty or significant pain. Negative Kernig's and Brudzinski sign. 4.CVS: +S1/S2, No murmurs or gallops. Peripheral pulses 2+ and equal in all extremities. Brisk capillary refill in all extremities. 5.RESP: Unlabored respiratory effort. Clear to auscultation bilaterally. No wheezes rales or rhonchi 6.GI: Soft, Nontender/Nondistended, No hepatosplenomegaly. No guarding or rebound. 7.MSK: Normocephalic/Atraumatic, Extremities w/o deformity or ttp No cyanosis or clubbing, Normal movement of all extremities 8.Skin: Warm, Dry. No rashes or lesions. 9.Neuro: field spec II-XII grossly intact. Sensation grossly intact, no focal neurologic deficits. All 6 cardinal planes of vision are fully intact. No evidence of rotatory or vertical nystagmus. The patient demonstrated a normal [id number], good dexterity. There was no evidence of dysdiadochokinesia. Patient was able to ambulate without difficulty. There was no wide-based gait. Romberg, and [id number] are both normal on testing. Sensation was intact bilaterally as well as muscle strength bilaterally for all extremities. Patient was able to verbalize butter cup with no slurring, or miss pronunciation. 10.Psych: (AAO) x3. Appropriate mood and affect Course Vital Signs Temperature 36.7 C 06/04/19 16:37 Pulse 94 H 06/04/19 16:37 Respiratory Rate 16 06/04/19 16:37 Blood Pressure 144/96 H 06/04/19 16:37 Pulse Oximetry 98 06/04/19 16:37 Temperature 36.7 C 06/04/19 16:37 Temperature Source Skin 06/04/19 16:37 Pulse 94 H 06/04/19 16:37 Respiratory Rate 16 06/04/19 16:37 Respiratory Effort Non-Labored 06/04/19 16:40 Blood Pressure 144/96 H 06/04/19 16:37 Blood Pressure Position Supine 06/04/19 16:37 Pulse Oximetry 98 06/04/19 16:37 Oxygen Delivery Method Room Air 06/04/19 16:37 Oxygen Flow Rate 0 06/04/19 16:37
--- NOTE | 2019-06-05 18:33 | PDOC.ERCMPRO ---
- If Service Date Differs Date of service: 06/05/19 Time of Service: 18:33 Care Management Progress Note CM met with patient and his significant other at length in the ED. Pj presents with concerns related to his medications and his symptoms of anxiety. He reports he has a psychiatric provider through his primary care Joselyn Gustafson who is prescribing his medication for anxiety. He reports that he was self medicating in the past with Xanax and that he had received some most recently when he came to the ED. He does not like that it makes him feel drowsy he is worried that he will withdraw from it if he stops suddenly. Pj is worried that he is unable to calm himself down when he feels anxious or has a panic attack. He states he does not have a provider or therapist at [facility]. CM listen to Pj and his SO while they processed their frustrations and concerns related his health. CM offered to refer Pj to [facility] for therapist his SO states he does not need talk therapy. CM encouraged Pj and his SO to walk at night and try to use some distraction techniques when he begins to experience anxiety symptoms. Pj states he enjoys his dogs, and walking. CM will refer patient and his SO to [facility] for Healthy living classes and a community health advocate that can connect to resources. CM did contact primary care and request follow up with patient. CM provided contact information for follow up if questions of concerns. 06/05- CM received a call from Pj he states he is feeling overwhelmed and is concerned his medication are increasing his anxiety. CM was able to listen and provide support over the phone including review of medications. CM offered crisis support if he felt that he needed additional support at time of encounter. CM contacted primary care office was closed CM left a voicemail. CM followed up with Pj and his SO he states he is now feeling better and has contacted his oncologist to schedule an appointment for next week. He is happy with referral to [facility] and will await for the contact from them on Saturday. Plan for CM to reconnect with patient next week for follow up.
== END 2019-06-04 18:10 | disposition home or self-care (01) ==
PROVIDERS: Emergency Provider Student in an Organized Health Care Education/Training Program; PCP Nurse Practitioner Family
DX: F41.9 Anxiety disorder, unspecified (principal); R53.83 Other fatigue; T43.595A Adverse effect of other antipsychotics and neuroleptics, initial encounter; Z87.820 Personal history of traumatic brain injury
CPT/HCPCS: 99283

== ENCOUNTER 2019-07-05 12:19 | Emergency (ER) | payer MEDICARE, MEDICAID, SELFPAY ==
--- NOTE | 2019-07-05 12:22 | ED.GENADUL_ITS ---
Discharge Plan Disposition Patient Disposition: HOME Condition: Good Discharge Details Chief Complaint: EyeProblem Clinical Impression: Conjunctivitis Primary Care Provider: José Miguel Bennett ED Provider: Ann Cm Home Meds and New Rx's Prescriptions: Continued fluoxetine 20 mg Capsule 20 mg PO DAILY RF: 0 Discharge Instructions Instructions: Conjunctivitis (ED) Additional Instructions: Your symptoms are most consistent with allergic conjunctivitis at this time. Please continue with the antihistamine eyedrops and follow-up with [facility] at the end of the week if not improving. If you develop discharge, redness of the eye, visual changes, increased pain or other new/worsening symptoms please seek care urgently once again. Referrals: José Miguel Bennett DO [Primary Care Provider] - Medical Decision Making Patient 33-year-old male history of right-sided exotropia, presents today with chief complaint of bilateral eye irritation x2 weeks. Reports this is common gone. Did use an antihistamine [id number] drop today she states did help with symptomatic management. States that the eyes have been intermittently injected. Denies any visual change. No fevers or chills. Reports that when he wakes in the morning he can note the eyes to be crusty. Does not have discharge otherwise with the day. No fevers. No exam, eyes are clear, no injection. He denies any recent trauma. Pupils are equal round reactive. No discharge. Damian reports that he has had similar symptoms historically and notes them to be the same time of year on previous years. Symptoms are most concerning for allergic conjunctivitis. I do not see any evidence of bacterial infection at this time. Advised that he continue the antihistamine drops the sounds to be working well for him. Will follow-up with development executive later this week for reevaluation if symptoms do not improve. He was given strict return precautions. Patient has baseline seasonal allergies. All his questions and concerns were addressed and he is in agreement this plan. HPI General Mode of arrival: ambulatory . Date/Time Provider Initiated Documentation: 07/05/19 12:21 . Limitations to Documentation: no limitations . Information obtained by: patient, family and RN notes reviewed . History of Present Illness 33 year old M presents to the emergency department with the chief complaint of bilateral eye irritation and itching, described as moderate, with intensity rated at 7. Quality is described as aching (itching and irritation), and is localized to the eyes. Patient reports no radiation. Patient started experiencing this week(s) (2) and it has been intermittent. other things that improve symptom(s), (began antihistamine drops today) No exacerbating factors reported . Patient notes no other symptoms.. Patient did receive the following treatments prior to arrival, other (drops as above) Related Data Home Medications Medication Instructions Recorded Confirmed fluoxetine 20 mg PO DAILY 05/29/19 07/05/19 Allergies Allergy/AdvReac Type Severity Reaction Status Date / Time Penicillins Allergy Severe Swelling/Ed Unverified 07/05/19 12:28 carie sertraline HCl [From Zoloft] Allergy Unknown Unverified 07/05/19 12:28 asparaginase Allergy Hives Unverified 07/05/19 12:28 hydroxyzine AdvReac Intermediate Other (See Unverified 07/05/19 12:28 Comment) General VINCENZO: 4 Review of Systems Constitutional Reports as per HPI, Denies chills, Denies fatigue, Denies fever(s) and Denies headache(s) Eyes Reports as per HPI, Denies blurry vision, Denies change in vision, Reports eye discharge (states eyes are crusted in the morning), Reports irritation, Reports itchy eyes, Denies loss of vision, Denies eye pain and Reports requires corrective lenses (does not wear contacts, hx of exotropia in right eye) ENT Denies headache(s) Cardiovascular Reports as per HPI, Denies chest pain and Denies lightheadedness Respiratory Denies cough Integumentary/Breasts Reports as per HPI, Denies rash, Denies skin pain and Denies skin swelling Neurologic Denies headache(s), Denies loss of vision and Denies radicular pain Endocrine Denies fatigue Allergic/Immunologic Reports itchy eyes [facility] Medical History Anxiety (Chronic) Bacterial conjunctivitis of right eye (Acute) Exotropia, right eye (Acute) Hyperopia of left eye with astigmatism (Acute) Lymphocytic leukemia (Acute) 8 years old. 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 Neurocognitive deficits (Acute) Optic atrophy (Acute) Panic disorder (Acute) PSC (posterior subcapsular cataract), right (Acute) PTSD (post-traumatic stress disorder) (Acute) Family History Mother Anxiety Asthma Father Diabetes Social History (Updated 06/26/19 @ 13:17 by Mirlande Duque) Smoking/Tobacco Use Status: Former Tobacco Use Alcohol Intake: never Drug use: Daily Substance use type: marijuana Details: has been cutting back on marijuana use- was using daily now hasnt used in a few weeks Adopted: No Caregiver/Support person: No Foster care: No Household members: significant other Housing: house Do you need help understanding health information?: Rarely current occupation: Disabled Sexually active: Yes Do you think of yourself as: straight/heterosexual Current gender identity: male Do you feel safe at home: Yes Do you feel safe in your relationship?: Yes Exam Const General: cooperative, healthy appearing, comfortable, no acute distress, well developed and well groomed Nutritional Appearance: average body habitus and well nourished Orientation: alert, awake and oriented x3 HENMT Head: normal to inspection, normocephalic and atraumatic Ears: hearing grossly normal bilaterally and external ears normal General nose exam: external nose normal and nares normal Face and sinus: normal facial exam and face symmetric Mouth: oral mucosae normal, lip normal and moist mucous membranes Eyes General: appearance normal, both eyes and all related structures (patient has exotropia to right eye) Visual Donald: normal visual donald by confrontation Alignment and Position: alignment abnormal right exotropia Periorbital: periorbital findings normal Eyelids: eyelids normal Conjunctivae: conjunctivae normal Sclera: sclerae normal Cornea: corneas normal Pupils: PERRL and normal by confrontation EOM: EOM intact bilaterally Resp Effort & Inspection: normal respiratory effort, able to speak in complete sentences and no respiratory distress Skin General skin exam: no rashes or lesions noted Neuro General: alert, awake and oriented x3 Cranial Nerves: CN's II-XI intact bilaterally Cognition: normal cognition Speech: speech normal Gait: normal gait Psych Appearance: grossly normal and well kempt Mental Status: mental status grossly normal Speech and Movement: speech and movement normal
[2019-07-05 12:25] VITALS: BP 141/99; PULSE 99; RESP 16; TEMP 36.6; O2SAT 98
== END 2019-07-05 12:56 | disposition home or self-care (01) ==
PROVIDERS: Emergency Provider Physician Assistant; PCP Family Medicine
DX: H10.13 Acute atopic conjunctivitis, bilateral (principal)
CPT/HCPCS: 99282

== ENCOUNTER 2020-10-11 05:24 | Emergency (ER) | payer MEDICARE, MEDICAID, SELFPAY ==
[2020-10-11 05:29] VITALS: BP 130/81; PULSE 126; RESP 16; TEMP 37.2; O2SAT 96
--- NOTE | 2020-10-11 05:36 | ED.GENADUL_ITS ---
Discharge Plan Disposition Patient Disposition: HOME Condition: Stable Discharge Details Clinical Impression: Pharyngitis Primary Care Provider: José Miguel Bennett ED Provider: Erik Sanchez Home Meds and New Rx's Prescriptions: New azithromycin 500 mg tablet See Rx Instructions .ROUTE .COMPLEX Qty: 6 RF: 0 Continued sildenafil [Viagra] 50 mg tablet 50 mg PO DAILY PRN (Reason: sexual activity) Qty: 10 RF: 0 omeprazole 20 mg capsule,delayed release(DR/EC) 20 mg PO DAILY Qty: 90 RF: 3 alprazolam 0.5 mg tablet 0.5 mg PO DAILY RF: 0 fluoxetine 20 mg capsule 20 mg PO DAILY Qty: 90 RF: 3 albuterol sulfate 90 mcg/actuation HFA aerosol inhaler 2 puff inhalation Q6H PRN (Reason: shortness of breath or wheezing) Qty: 18 RF: 3 Discharge Instructions Instructions: Pharyngitis (ED) Additional Instructions: follow up with your primary care provider if symptoms are not improving within 5 days you can take 1000mg tylenol and 600mg ibuprofen every 6 hours for pain as needed if you have worsening pain, difficulty breathing or inability to swallow liquids return to the emergency department Medical Decision Making 34 yo male comes in with 3 days of sore throat. Denies any fevers, chills, vomit dyspnea or difficulty swallowing. ARrives hd stable speaking in full sentences swallowing normally. His posterior pharynx is erythematous with exudates, midline uvula, no pain over the hyoid or restricted neck movements, no submandibular swelling, no findings to suggest Rpa, captain waiter, epiglotitis nor ludwigs. Exam is consistent with likely strep pharyngitis and will empirically treat for this. He denies any travel and stays at his house so doubt covid. Will have him f/u with his pcp if not improving and return precautions given. He does note a small sore on his tongue which apperas to be a canker sore on the left lateral tongue, no vesicles or fluctuance and is about 0.5cm. Differential Diagnosis Differential Diagnosis: strep, viral pharyngitis HPI General Mode of arrival: ambulatory . Date/Time Provider Initiated Documentation: 10/11/20 05:25 . Limitations to Documentation: no limitations . Information obtained by: patient . History of Present Illness 34 year old M presents to the emergency department with the chief complaint of sore throat, described as moderate, Patient started experiencing this day(s) (3) and it has been constant. No relieving factors improve symptom(s), No exacerbating factors reported . Patient notes no other symptoms.. Patient did receive the following treatments prior to arrival, none Related Data Home Medications Medication Instructions Recorded Confirmed alprazolam 0.5 mg tablet 0.5 mg PO DAILY 07/23/19 10/11/20 omeprazole 20 mg capsule,delayed 20 mg PO DAILY #90 cap 07/27/19 10/11/20 release sildenafil 50 mg tablet 50 mg PO DAILY PRN #10 tab 07/27/19 08/03/19 fluoxetine 20 mg capsule 20 mg PO DAILY #90 cap 06/30/20 10/11/20 albuterol sulfate 90 mcg/actuation 2 puff INHALATION Q6H PRN #18 g 08/09/2009/27 aerosol inhaler azithromycin See Rx Instructions .ROUTE 10/11/20 .COMPLEX #6 tab Previous Rx's Medication Instructions Recorded omeprazole 20 mg capsule,delayed 20 mg PO DAILY #90 cap 07/27/19 release sildenafil 50 mg tablet 50 mg PO DAILY PRN #10 tab 07/27/19 fluoxetine 20 mg capsule 20 mg PO DAILY #90 cap 06/30/20 albuterol sulfate 90 mcg/actuation 2 puff INHALATION Q6H PRN #18 g 08/09/20 aerosol inhaler azithromycin See Rx Instructions .ROUTE 10/11/20 .COMPLEX #6 tab Allergies Allergy/AdvReac Type Severity Reaction Status Date / Time Penicillins Allergy Severe Swelling/Ed Verified 08/03/19 14:34 carie asparaginase Allergy Unknown Hives Verified 08/03/19 14:34 sertraline HCl [From Zoloft] Allergy Unknown black out Verified 08/03/19 14:34 hydroxyzine AdvReac Intermediate Other (See Verified 08/03/19 14:34 Comment) General Stated Complaint: Sorethroat VINCENZO: 3 Review of Systems All systems reviewed & are unremarkable except as noted in HPI and below Constitutional Constitutional: Denies chills, Denies fever(s) and Denies weakness ENT Ears, Nose, Mouth, and Throat: Denies change in voice Cardiovascular Cardiovascular: Denies chest pain and Denies dyspnea Respiratory Respiratory: Denies cough and Denies dyspnea Gastrointestinal Gastrointestinal: Denies abdominal pain, Denies nausea and Denies vomiting Genitourinary Genitourinary: Denies dysuria Musculoskeletal Musculoskeletal: Denies joint swelling Integumentary/Breasts Skin/Breast: Denies rash Neurologic Neurologic: Denies weakness [facility] Medical History (Updated 10/11/20 @ 05:37 by Erik Sanchez MD) Anxiety Bacterial conjunctivitis of right eye Exotropia, right eye Hyperopia of left eye with astigmatism Lymphocytic leukemia 8 years old. 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 Neurocognitive deficits Optic atrophy Panic disorder PSC (posterior subcapsular cataract), right PTSD (post-traumatic stress disorder) Family History Mother Anxiety Asthma Father Diabetes Social History (Updated 07/27/19 @ 15:16 by Claudia Go LPN) Smoking/Tobacco Use Status: Former Tobacco Use Tobacco: How many years used: 13 Smoking risk assessment performed?: Yes Alcohol Intake: never Drug use: Daily Substance use type: marijuana Details: has been cutting back on marijuana use- smokes about 2x/day. Adopted: No Caregiver/Support person: No Foster care: No Household members: significant other Housing: house Number of Children: 0 Communication Needs: Corrective Lenses Education Level: high school Do you need help understanding health information?: Rarely current occupation: Disabled Sexually active: Yes Do you think of yourself as: straight/heterosexual Current gender identity: male What is your relationship status?: living with partner Panel score (0-1 are the most socially isolated patients): 1 What type of physical activity do you participate in: walking Duration: 15-30 minutes/day Frequency: daily Seatbelt use: always Drive intox or ride w/intox limb driver: No Working smoke detector in home: Yes Fire extinguisher in home: Yes Carbon monox detector in home: Yes Do you feel safe at home: Yes Do you feel safe in your relationship?: Yes Exam Const General: no acute distress Orientation: alert HENMT Head: normal to inspection Ears: external ears normal General nose exam: external nose normal Mouth: moist mucous membranes Eyes General: appearance normal, both eyes and all related structures Neck Neck: normal visual inspection Resp Effort & Inspection: normal respiratory effort and able to speak in complete sentences Cardio Rate: regular rate Skin General skin exam: no rashes or lesions noted Neuro General: patient alert and patient oriented x3 Extrem General: normal to inspection Psych Mental Status: mental status grossly normal Course Vital Signs Vital signs: Vital Signs Temperature 37.2 C 10/11/20 05:29 Pulse 126 H 10/11/20 05:29 Respiratory Rate 16 10/11/20 05:29 Blood Pressure 130/81 10/11/20 05:29 Pulse Oximetry 96 10/11/20 05:29 Temperature 37.2 C 10/11/20 05:29 Pulse 126 H 10/11/20 05:29 Respiratory Rate 16 10/11/20 05:29 Respiratory Effort 10/11/20 05:31 Blood Pressure 130/81 10/11/20 05:29 Blood Pressure Position Sitting 10/11/20 05:29 Pulse Oximetry 96 10/11/20 05:29 Pain Level 9 10/11/20 05:29
[2020-10-11] MEDS: Dexamethasone 4 MG TAB 10 MG PO (05:42)
--- NOTE | 2020-10-11 09:56 | NUR.NOTE ---
Nursing Note: verified Rx for azithromycin with [facility] to read 500 mg today, then 250 mg daily for [address] Florez agrees.
== END 2020-10-11 05:45 | disposition home or self-care (01) ==
PROVIDERS: Emergency Provider Emergency Medicine; PCP Family Medicine
DX: J02.0 Streptococcal pharyngitis (principal); K12.0 Recurrent oral aphthae
CPT/HCPCS: 99283; J8540

== ENCOUNTER 2020-10-15 05:23 | Emergency (ER) | payer MEDICARE, MEDICAID, SELFPAY ==
[2020-10-15 05:28] VITALS: BP 134/71; PULSE 89; RESP 18; TEMP 36.6; O2SAT 97
[2020-10-15] MEDS: Benzocaine 20% 60 ML CAN (05:40)
--- NOTE | 2020-10-15 05:40 | ED.GENADUL_ITS ---
Discharge Plan Disposition Patient Disposition: HOME Condition: Good Discharge Details Clinical Impression: Acute herpangina, Mucositis Primary Care Provider: José Miguel Bennett ED Provider: Sergey Garcia Home Meds and New Rx's Prescriptions: Continued fluoxetine 20 mg capsule 20 mg PO DAILY Qty: 90 RF: 3 albuterol sulfate 90 mcg/actuation HFA aerosol inhaler 2 puff inhalation Q6H PRN (Reason: shortness of breath or wheezing) Qty: 18 RF: 3 omeprazole 20 mg capsule,delayed release(DR/EC) 20 mg PO DAILY Qty: 90 RF: 3 Discharge Instructions Instructions: Oral Mucositis (ED) Additional Instructions: You have what is called herpangina which is a viral infection. This will get better with time, but it will take 5 to 7 days for notable improvement. Please use the spray and the Magic mouthwash as needed to help with the pain. Do not swallow the Magic mouthwash. Please avoid any spicy foods, citrus-based foods, sedatives, or carbonated things as this can cause more irritation for the lesions. If you notice any worsening of your symptoms, or any new symptoms such as lesions on your hands or feet, worsening or new lesions, vomiting, diarrhea, fever, chills, shortness of breath, chest pain, numbness, weakness, or fainting , please return immediately to the emergency department for reevaluation. Please follow up with your primary care provider as soon as possible for reassessment and reevaluation. As always, it was a pleasure participating in your medical care today. Referrals: José Miguel Bennett DO [Primary Care Provider] - Medical Decision Making 35-year-old male with a past medical history of PTSD, chronic exotropia, presents today for evaluation of sore throat. He was seen just less than a week ago here in the ED, there is suspected pharyngitis, he was started on azithromycin secondary to history of allergies. He states that since then his sore throat has continued and slightly worsened, and he has developed small lesions on his throat and some small ones on his lips as well. He states that they peaked recently and seem to be getting slightly better at this time but the pain still persist. He denies any fever or chills, he denies any lesions on his hands or feet. He denies any headache chest pain or shortness of breath. No difficulty swallowing aside from mild pain and irritation secondary to the sore throat. No new medications aside from the azithromycin. No other complaints at this time. Physical exam demonstrates small lesions/ulcers in the posterior oropharynx by the uvula, no tonsillar exudate. 2 small lesions in the upper lip. No lesions on the hard palate. No conjunctiva irritation, no lesions on the hands or feet. Signs and symptoms appear clinically identical to herpangina/mucositis at this time. No crusted lesions on the lips, no chapped lips, symptoms inconsistent with Richard-Ant syndrome, or dress syndrome at this time. Bupivacaine spray was used in the posterior oropharynx and patient had complete resolution of his symptoms. As the patient feels that his symptoms are actually starting to slightly improve, I do feel he is reached the apex, and will likely find notable improvement in the next 3 to 5 days. Will give Magic mouthwash here for home use. Recommended stopping azithromycin. Discussed red flags for which to return. I have extensively reviewed the treatment plan and discharge instructions with the patient. I have addressed all patient concerns at this time. The patient was made aware of what symptoms to monitor for that would warrant a return to the emergency department. Discussed the plan with the patient, they demonstrate verbal understanding and agreement with our assessment and plan at this time. HPI General Date/Time Provider Initiated Documentation: 10/15/20 05:25 . HPI Narrative: 35-year-old male with a past medical history of PTSD, chronic exotropia, presents today for evaluation of sore throat. He was seen just less than a week ago here in the ED, there is suspected pharyngitis, he was started on azithromycin secondary to history of allergies. He states that since then h is sore throat has continued and slightly worsened, and he has developed small lesions on his throat and some small ones on his lips as well. He states that they peaked recently and seem to be getting slightly better at this time but the pain still persist. He denies any fever or chills, he denies any lesions on his hands or feet. He denies any headache chest pain or shortness of breath. No di fficulty swallowing aside from mild pain and irritation secondary to the sore throat. No new medications aside from the azithromycin. No other complaints at this time. Related Data Home Medications Medication Instructions Recorded Confirmed fluoxetine 20 mg capsule 20 mg PO DAILY #90 cap 06/30/20 10/15/20 albuterol sulfate 90 mcg/actuation 2 puff INHALATION Q6H PRN #18 g 08/09/20 10/15/20 aerosol inhaler omeprazole 20 mg capsule,delayed 20 mg PO DAILY #90 cap 10/13/20 10/15/20 release Previous Rx's Medication Instructions Recorded fluoxetine 20 mg capsule 20 mg PO DAILY #90 cap 06/30/20 albuterol sulfate 90 mcg/actuation 2 puff INHALATION Q6H PRN #18 g 08/09/20 aerosol inhaler omeprazole 20 mg capsule,delayed 20 mg PO DAILY #90 cap 10/13/20 release Allergies Allergy/AdvReac Type Severity Reaction Status Date / Time Penicillins Allergy Severe Swelling/Ed Verified 10/15/20 05:42 carie asparaginase Allergy Unknown Hives Verified 10/15/20 05:42 sertraline HCl [From Zoloft] Allergy Unknown black out Verified 10/15/20 05:42 hydroxyzine AdvReac Intermediate Other (See Verified 10/15/20 05:42 Comment) General Stated Complaint: Sorethroat VINCENZO: 4 Review of Systems All systems reviewed & are unremarkable except as noted in HPI and below PFSH Medical History Anxiety Bacterial conjunctivitis of right eye Exotropia, right eye Hyperopia of left eye with astigmatism Lymphocytic leukemia 8 years old. 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 Neurocognitive deficits Optic atrophy Panic disorder PSC (posterior subcapsular cataract), right PTSD (post-traumatic stress disorder) Family History Mother Anxiety Asthma Father Diabetes Social History Smoking/Tobacco Use Status: Former Tobacco Use Tobacco: How many years used: 13 Smoking risk assessment performed?: Yes Alcohol Intake: never Drug use: Daily Substance use type: marijuana Details: has been cutting back on marijuana use- smokes about 2x/day. Adopted: No Caregiver/Support person: No Foster care: No Household members: significant other Housing: house Number of Children: 0 Communication Needs: Corrective Lenses Education Level: high school Do you need help understanding health information?: Rarely current occupation: Disabled Sexually active: Yes Do you think of yourself as: straight/heterosexual Current gender identity: male What is your relationship status?: living with partner Panel score (0-1 are the most socially isolated patients): 1 What type of physical activity do you participate in: walking Duration: 15-30 minutes/day Frequency: daily Seatbelt use: always Drive intox or ride w/intox medical delivery driver: No Working smoke detector in home: Yes Fire extinguisher in home: Yes Carbon monox detector in home: Yes Do you feel safe at home: Yes Do you feel safe in your relationship?: Yes Exam Narrative Exam Narrative: 1.Const: Well-nourished, Well-developed, appearing stated age 2.Eyes: PERRL, no conjunctival injection, and symmetrical lids. No conjunctivitis 3.ENT: Atraumatic external nose and ears. Moist MM. Neck: Symmetric, trachea midline, No thyromegaly. Posterior oropharynx demonstrates a few small ulcerative lesions around the uvula and towards the tonsils. No tonsillar exudate. 1 or 2 small lesions in the upper lip, no other significant abnormalities. No bleeding. No lesions on the hard palate. 4.CVS: +S1/S2, No murmurs or gallops. Peripheral pulses 2+ and equal in all extremities. Brisk capillary refill in all extremities. 5.RESP: Unlabored respiratory effort. Clear to auscultation bilaterally. No wheezes rales or rhonchi 6.GI: Soft, Nontender/Nondistended, No hepatosplenomegaly. No guarding or rebound. 7.MSK: Normocephalic/Atraumatic, Extremities w/o deformity or ttp No cyanosis or clubbing, Normal movement of all extremities 8.Skin: Warm, Dry. No rashes or lesions. No lesions or ulcers on the hands or feet or chest. 9.Neuro: central office installer II-XII grossly intact. Sensation grossly intact, no focal n eurologic deficits. 10.Psych: (AAO) x3. Appropriate mood and affect Course Vital Signs Vital signs: Vital Signs Temperature 36.6 C 10/15/20 05:28 Pulse 89 10/15/20 05:28 Respiratory Rate 18 10/15/20 05:28 Blood Pressure 134/71 10/15/20 05:28 Pulse Oximetry 97 10/15/20 05:28 Temperature 36.6 C 10/15/20 05:28 Temperature Source Skin 10/15/20 05:28 Pulse 89 10/15/20 05:28 Respiratory Rate 18 10/15/20 05:28 Respiratory Effort Non-Labored 10/15/20 05:38 Blood Pressure 134/71 10/15/20 05:28 Blood Pressure Position Sitting 10/15/20 05:28 Pulse Oximetry 97 10/15/20 05:28 Oxygen Delivery Method Room Air 10/15/20 05:28 Oxygen Flow Rate 0 10/15/20 05:28 Pain Level 10 10/15/20 05:28
[2020-10-15] MEDS: Magic Mouthwash 119 ML BTL 50 ML PO (06:01)
--- NOTE | 2020-10-16 11:45 | ED.FU.B_ITS ---
Patient's friend and mac operator Toya called the ED today to state that he needed additional Magic mouthwash. Patient was given a bottle of Magic mouthwash to go on his visit yesterday. He states he has been using it every hour. The instructions are to take 5 to 10 mL every 6 hours which she states she was unaware of. He was diagnosed with herpangina and is continuing to have pain. He is advised to continue to use Hurricaine spray as needed and directed. They were looking for a prescription for Magic mouthwash which could be covered by his insurance. I called his pharmacy [facility] in [place] and spoke with the pharmacist Flor. She states Magic mouthwash is not covered by his insurance and would cost $50. This was discussed with patient and Toya and they would not be able to pay for this. Flor states that there is another option in which you can call in a prescription for lidocaine viscous and patient can purchase liquid Benadryl and Maalox and the pharmacist will walk them through the mixing and dosing instructions. After discussion with Flor, a prescription for 2 to 3 mL of lidocaine viscous p.o. every 6 hours, swish and spit, dispense 50 mL with recommendations and instructions to mix with equal amounts of liquid Benadryl and Maalox to be administered every 6 hours as needed for pain was discussed. Flor states she will have a bottle of liquid Benadryl and Maalox at the pharmacy station and she will instruct patient and Toya how to administer this medication.
== END 2020-10-15 06:12 | disposition home or self-care (01) ==
PROVIDERS: Emergency Provider Student in an Organized Health Care Education/Training Program; PCP Family Medicine
DX: B08.5 Enteroviral vesicular pharyngitis (principal); K12.39 Other oral mucositis (ulcerative)
CPT/HCPCS: 99283

== ENCOUNTER 2020-10-17 16:20 | Outpatient (CLI) | payer MEDICARE, MEDICAID, SELFPAY ==
[2020-10-17 12:26] LABS: Abs Immature Grans 0.06 10^3/uL (0.0-0.06); Absolute Basophil Count 0.05 10^3/uL (0.0-0.2); Absolute Eosinophil Count 0.97 10^3/uL (0.0-0.7); Absolute Lymphocyte Count 3.11 10^3/uL (1.2-3.4); Absolute Monocyte Count 0.81 10^3/uL (0.1-0.8); Absolute Neutrophil Count 4.84 10^3/uL (1.2-6.7); Basophils % 0.5; Eosinophils % 9.9; HCT 47.6 % (40.0-50.0); HGB 15.8 g/dL (13.5-17.5); Immature Grans % 0.6; Lymphocytes % 31.6; MCH 29.1 pg (27.0-33.0); MCHC 33.2 % (32.0-36.0); MCV 87.7 fL (80-95); MPV 9.3 fL (8.0-11.0); Monocytes % 8.2; Neutrophils % 49.2; Nucleated RBC 0 %; Platelet Count 421 10^3/uL (130-400); RBC 5.43 10^6/uL (4.36-5.78); RDW-SD 38.5 fL; WBC 9.84 10^3/uL (4.4-10.8)
== END 2020-10-17 16:40 ==
PROVIDERS: PCP Family Medicine; Visit Provider Family Medicine
DX: B08.5 Enteroviral vesicular pharyngitis (principal)
CPT/HCPCS: 36415; 85025

== ENCOUNTER 2021-05-13 23:01 | Emergency (ER) | payer MEDICARE, MEDICAID, SELFPAY ==
--- NOTE | 2021-05-13 23:00 | DI.CT_ITS ---
Exam(s) CT ABDOMEN PELVIS W EXAM: CT ABDOMEN PELVIS W CLINICAL HISTORY: lower abdominal pain, vomiting, diarrhea, fever. TECHNIQUE: Imaging Protocol: Axial computed tomography images with coronal and sagittal reformatted images were created and reviewed CONTRAST MATERIAL: Intravenous: Omnipaque 100cc Oral: None COMPARISON: No exams were available for comparison FINDINGS: VISUALIZED LUNG BASES: There is mild infiltrate in the lingular segment of the left lung.. There are no pleural effusions. ABDOMEN: There is no ascites. LIVER: There are no focal hepatic lesions evident . GALLBLADDER/BILIARY: No obvious gallbladder pathology. CBD is not dilated. PANCREAS: No evidence of pancreatic mass nor dilatation of the pancreatic duct. SPLEEN: Spleen is not enlarged. No obvious intrasplenic lesions. Splenic and portal veins are paten t. ADRENALS: There are no significant adrenal masses. KIDNEYS:In the lateral cortex of the right kidney there is an 11 x 10 millimeter fat containing benig n appearing angiomyolipoma. No other focal right kidney findings. There is a small cyst in the medi al cortex of the left kidney which measures 7 millimeters and an even smaller cysts seen in the later al cortex. No solid renal masses. No calculi nor hydronephrosis.. ABDOMINAL AORTA: Abdominal aorta is not enlarged. Mild calcified plaque is noted in the common iliac arteries bilaterally in this relatively young patient. LYMPH NODES:There is no retroperitineal nor paraaortic adenopathy. ABDOMINAL WALL: No evidence of significant anterior abdominal wall hernia. GI: In the right-side of the abdomen there is an air-filled small bowel loop located just below the h epatic flexure of the colon. However, there is no bowel wall edema at this level. No adjacent mesen teric vascular engorgement, and no free fluid. PELVIS: GI: No evidence of appendicitis.No evidence of sigmoid diverticulitis. LYMPH NODES: There is no intrapelvic nor inguinal adenopathy. REPRODUCTIVE: Prostate not enlarged. Seminal vesicles unremarkable. URINARY BLADDER: No calculi nor obvious masses evident OSSEOUS: There is a sclerotic bone island in the left iliac bone. Sacroiliac joints appear unremarka ble. IMPRESSION: 1. Nonspecific bowel findings as described above. There is no evidence of true bowel obstruction. N o free air. No abscess. No evidence of acute appendicitis. No diverticulitis 2. Small benign angiomyolipoma in the right kidney and small cysts in the opposite-left kidney. Thes e are benign findings. No renal calculi nor hydronephrosis. 3. Mild infiltrate is noted in the anterior left lung base-lingular segment. There are no pleural ef fusions. 4. There is no ascites. RADIATION DOSE DELIVERED: 905.76mGy.cm Total DLP DATA REPOSITORY: All CT scans at this facility are submitted to the National Radiology Data Registry (NRDR) Dose Index Registry (DIR) with the [employer] (A[employer]). RADIATION OPTIMIZATION: All CT scans at this facility use at least one of these dose optimization te chniques: automated exposure control; mA and/or kV adjustment per patient size (includes targeted exa ms where dose is matched to clinical indication); or iterative reconstruction.
[2021-05-13 23:09] VITALS: BP 127/78; PULSE 114; RESP 20; TEMP 37.2; O2SAT 93
--- NOTE | 2021-05-13 23:19 | DI.RAD_ITS ---
Exam(s) XR CHEST 1V IN DI DEPT EXAM: XR CHEST 1V IN DI DEPT CLINICAL HISTORY: sob, cough, fever. TECHNIQUE: 2D digital imaging was performed. COMPARISON: CR CHEST 2 VIEWS PA,LAT from 12/10/2015 FINDINGS: Heart size is normal. The mediastinum is not widened. No confluent infiltrates nor pleural effusions. No pneumothorax. No pulmonary edema. IMPRESSION: No acute pulmonary findings on this single AP portable view of the chest. DATA REPOSITORY: RADIATION DOSE DELIVERED: All CT scans at this facility use at least one of these dose optimization techniques: automated exposure control; mA and/or kV adjustment per patient size (includes targeted e xams where dose is matched to clinical indication); or iterative reconstruction.
[2021-05-13 23:30] VITALS: RESP 18; RESP 8
[2021-05-13] MEDS: Albuterol/Ipratropium 3 ML UPD VIAL 6 ML UPD (23:30)
--- NOTE | 2021-05-13 23:30 | ED.GENADUL_ITS ---
Discharge Plan Disposition Patient Disposition: HOME Condition: Good Discharge Details Clinical Impression: Community acquired pneumonia, Enteritis Primary Care Provider: José Miguel Bennett ED Provider: Sergey Garcia Home Meds and New Rx's Prescriptions: New azithromycin 250 mg tablet 250 mg PO DAILY 4 Days Qty: 4 RF: 0 dicyclomine 10 mg capsule 10 mg PO TID Qty: 10 RF: 0 Continued fluoxetine 20 mg capsule 20 mg PO DAILY Qty: 90 RF: 3 albuterol sulfate 90 mcg/actuation HFA aerosol inhaler 2 puff inhalation Q6H PRN (Reason: shortness of breath or wheezing) Qty: 18 RF: 3 omeprazole 20 mg capsule,delayed release(DR/EC) 20 mg PO DAILY Qty: 90 RF: 3 Discharge Instructions Instructions: Community Acquired Pneumonia (ED), Enteritis (ED) Additional Instructions: At this time you have evidence of mild community-acquired pneumonia. We have sent a prescription for azithromycin and antibiotic to your local pharmacy. Please pick this up and take it as directed. Please stick with an easy diet of soup, rice, bananas, and oats. Please take Tylenol and Motrin as needed for fever. If you notice any worsening of your symptoms, or any new symptoms such as vomiting, diarrhea, fever, chills, shortness of breath, chest pain, numbness, weakness, or fainting , please return immediately to the emergency department for reevaluation. Please follow up with your primary care provider as soon as possible for reassessment and reevaluation. As always, it was a pleasure participating in your medical care today. Referrals: José Miguel Bennett DO [Primary Care Provider] - Medical Decision Making This is a very pleasant 35-year-old male with a past medical history of chronic exotropia in the right eye, neurocognitive deficits, PTSD, lymphocytic leukemia, anxiety and panic disorder, who presents today for evaluation of abdominal pain mild cough fever and chills. Patient has not gotten his Covid vaccinations secondary to chronic amino insufficiencies. Patient states that for the last 3 days he has had mild nausea and vomiting, diarrhea and constipation, mild abdominal bloating, and pain in the lower abdomen. He denies hematemesis hematochezia melena or acholic stool. He also admits to mild fever and chills at home, lasting yesterday and the day before but denies any fever today. He has a mild cough that started today but denies any shortness of breath. He does have mild reactive airway, and feels that his cough is attributed to his asthma. He denies any other complaints at this time. He denies any loss of taste or smell. Physical exam demonstrates a well-appearing male, mild wheeze in the right lung field, generalized mild abdominal tenderness. No genital tenderness. Patient does look mildly dehydrated. Symptoms are likely secondary to mild enteritis, or viral etiology. Covid is on the differential but less likely. Generalized abdominal pain could certainly also include slightly atypical appendicitis versus enteritis or less likely obstruction. Will get CT imaging to rule out acute process, get a chest x-ray, gently rehydrate, monitor closely and reassess. Patient denies any red flags for diarrhea like blood, foreign travel, camping, or other sick contacts. No recent antibiotic use to suggest C. difficile. 1:27 AM Laboratory work-up is returned, no white count, no bandemia. Lactate normal, electrolytes normal, creatinine and BUN suggest a picture of mild dehydration. Lipase normal. Covid test negative. CT scan per virtual radiology demonstrates evidence of mild enterocolitis, no evidence of obstruction perforation or abscess. There is also mild bronchitis and mild concern for atypical pneumonia. Patient feels much better, tolerating p.o. well. Patient would like to go home. Will give 500 mg of azithromycin here, and a prescription for home. Suspect likely viral etiology for acute gastroenteritis with a mild atypical bacterial etiology for the pneumonia. Patient has had no episodes of diarrhea here. Symptoms appear inconsistent with life-threatening infectious diarrhea. Discussed red flags for which to return. I have extensively reviewed the treatment plan and discharge instructions with the patient. I have addressed all patient concerns at this time. The patient was made aware of what symptoms to monitor for that would warrant a return to the emergency department. Discussed the plan with the patient, they demonstrate verbal understanding and agreement with our assessment and plan at this time. The documentation in this chart was dictated using [employer] dictation software. Please excuse any dictation errors. FINDINGS: Lungs: Peripheral reticulonodular densities in the lingula and lateral left base concerning for nodular infiltrates, consider atypical organisms. Heart: Heart size normal. Mediastinal space: The visualized distal esophagus is normal. Liver: Normal contour. No mass lesions. No intrahepatic biliary ductal dilatation. Gallbladder and bile ducts: Normal. No calcified stones. No ductal dilation. Pancreas: Normal. No inflammatory changes or ductal dilation. Spleen: Normal. No splenomegaly. Adrenal glands: Normal. No adrenal mass. Kidneys and ureters: No acute abnormalities. No hydronephrosis or hydroureter. No urinary tract stones are identified. 13 mm fat density angiomyolipoma in the right renal cortex which does not require further evaluation.There are multiple simple left renal cortical cysts. No further imaging evaluation is required. Stomach and bowel: The stomach is largely contracted without gross abnormality. There is excessive fluid content in the distal small bowel and colon, consistent with diarrheal state and possibly mild enterocolitis. No small bowel dilatation or transition point suggestive of bowel obstruction was identified. No evidence of perforation or abscess. Appendix: The appendix is normal in caliber and demonstrates no evidence of appendicitis. Intraperitoneal space: No free fluid or air. Vasculature: No acute process. No abdominal aortic aneurysm. Minor calcific atherosclerosis in the bilateral iliac arteries. Lymph nodes: No adenopathy. Urinary bladder: Unremarkable as visualized. Reproductive: Unremarkable as visualized. Bones/joints: No acute osseous abnormalities. Soft tissues: Unremarkable. Other findings: Central bronchial wall thickening partially visualized suggest ing an element of bronchitis. IMPRESSION: 1. Findings suggestive of mild generalized enterocolitis and diarrheal state. No evidence of bowel obstruction, perforation, or abscess. 2. Central bronchial wall thickening in the lung bases suggesting an element of bronchitis, with peripheral reticulonodular infiltrates in the lingula and lateral left lung base concerning for atypical pneumonia or possibly chronic small airways disease. 3. Additional non-emergent findings detailed above. Thank you for allowing us to participate in the care of your patient. Dictated and Authenticated by: Franco Sifuentes MD 05/14/2021 1:12 AM Eastern Time ([place] & [place]) FINDINGS: Lungs: Normal pulmonary expansion. Pulmonary vasculature grossly normal. Mild peribronchial thickening and perihilar stranding suggesting possible bronchitis. Minor left perihilar alveolar opacity could represent subsegmental atelectasis or perihilar pneumonia. Pleural spaces: No pleural effusion. No pneumothorax. Heart/Mediastinum: Heart size normal. No tracheal/mediastinal shift. Bones/joints: No acute osseous abnormalities are identified. IMPRESSION: 1. Bilateral bronchial wall thickening and perihilar streaking suggesting bronch itis. 2. Patchy left perihilar alveolar opacities could represent subsegmental atelectasis or mild perihilar pneumonia. Thank you for allowing us to participate in the care of your patient. Dictated and Authenticated by: Franco Sifuentes MD 05/14/2021 1:05 AM Eastern Time ([place] & [place]) HPI General Date/Time Provider Initiated Documentation: 05/13/21 23:03 . HPI Narrative: This is a very pleasant 35-year-old male with a past medical history of chronic exotropia in the right eye, neurocognitive deficits, PTSD, lymphocytic leukemia, anxiety and panic disorder, who presents today for evaluation of abdominal pain mild cough fever and chills. Patient has not gotten his Covid vaccinations secondary to chronic amino insufficiencies. Patient states that for the last 3 days he has had mild nausea and vomiting, diarrhea and constipation, mild abdominal bloating, and pain in the lower abdomen. He denies hematemesis hematochezia melena or acholic stool. He also admits to mild fever and chills at home, lasting yesterday and the day before but denies any fever today. He has a mild cough that started today but denies any shortness of breath. He does have mild reactive airway, and feels that his cough is attributed to his asthma. He denies any other complaints at this time. He denies any loss of taste or smell. Related Data Home Medications Medication Instructions Recorded Confirmed fluoxetine 20 mg capsule 20 mg PO DAILY #90 cap 06/30/20 10/15/20 albuterol sulfate 90 mcg/actuation 2 puff INHALATION Q6H PRN #18 g 08/09/20 10/15/20 aerosol inhaler omeprazole 20 mg capsule,delayed 20 mg PO DAILY #90 cap 10/13/20 10/15/20 release azithromycin 250 mg PO DAILY 4 Days #4 tab 05/14/21 dicyclomine 10 mg PO TID #10 cap 05/14/21 Previous Rx's Medication Instructions Recorded fluoxetine 20 mg capsule 20 mg PO DAILY #90 cap 06/30/20 albuterol sulfate 90 mcg/actuation 2 puff INHALATION Q6H PRN #18 g 08/09/20 aerosol inhaler omeprazole 20 mg capsule,delayed 20 mg PO DAILY #90 cap 10/13/20 release azithromycin 250 mg PO DAILY 4 Days #4 tab 05/14/21 dicyclomine 10 mg PO TID #10 cap 05/14/21 Allergies Allergy/AdvReac Type Severity Reaction Status Date / Time Penicillins Allergy Severe Swelling/Ed Verified 05/13/21 23:13 carie asparaginase Allergy Unknown Hives Verified 05/13/21 23:13 sertraline HCl [From Zoloft] Allergy Unknown black out Verified 05/13/21 23:13 hydroxyzine AdvReac Intermediate Other (See Verified 05/13/21 23:13 Comment) General Stated Complaint: Nausea/Vomit/Diar VINCENZO: 3 Review of Systems All systems reviewed & are unremarkable except as noted in HPI and below PFSH Medical History (Updated 05/14/21 @ 01:34 by Sergey Garcia DO) Anxiety Bacterial conjunctivitis of right eye Exotropia, right eye Hyperopia of left eye with astigmatism Lymphocytic leukemia 8 years old. 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 Neurocognitive deficits Optic atrophy Panic disorder PSC (posterior subcapsular cataract), right PTSD (post-traumatic stress disorder) Family History Mother Anxiety Asthma Father Diabetes Social History Smoking/Tobacco Use Status: Former Tobacco Use Tobacco: How many years used: 13 Smoking risk assessment performed?: Yes Alcohol Intake: never Drug use: Daily Substance use type: marijuana Details: has been cutting back on marijuana use- smokes about 2x/day. Adopted: No Caregiver/Support person: No Foster care: No Household members: significant other Housing: house Number of Children: 0 Communication Needs: Corrective Lenses Education Level: high school Do you need help understanding health information?: Rarely current occupation: Disabled Sexually active: Yes Do you think of yourself as: straight/heterosexual Current gender identity: male What is your relationship status?: living with partner Panel score (0-1 are the most socially isolated patients): 1 What type of physical activity do you participate in: walking Duration: 15-30 minutes/day Frequency: daily Seatbelt use: always Drive intox or ride w/intox ems driver: No Working smoke detector in home: Yes Fire extinguisher in home: Yes Carbon monox detector in home: Yes Do you feel safe at home: Yes Do you feel safe in your relationship?: Yes Exam Narrative Exam Narrative: 1.Const: Well-nourished, Well-developed, appearing stated age 2.Eyes: PERRL, no conjunctival injection, and symmetrical lids. 3.ENT: Atraumatic external nose and ears. Moist MM. Neck: Symmetric, trachea midline, No thyromegaly. 4.CVS: +S1/S2, No murmurs or gallops. Peripheral pulses 2+ and equal in all extremities. Brisk capillary refill in all extremities. 5.RESP: Unlabored respiratory effort. Minimal wheeze in the right lower lung echols, no rhonchi or rales. 6.GI: Soft, mild bloating, no significant distention. Mild lower abdominal tenderness. No focal tenderness in the right lower or right upper quadrant. No guarding or rebound. No testicular tenderness. 7.MSK: Normocephalic/Atraumatic, Extremities w/o deformity or ttp No cyanosis or clubbing, Normal movement of all extremities 8.Skin: Warm, Dry. No rashes or lesions. 9.Neuro: rehabilitation caseworker II-XII grossly intact. Sensation grossly intact, no focal neurologic deficits. 10.Psych: (AAO) x3. Appropriate mood and affect Course Vital Signs Vital signs: Vital Signs Temperature 37.2 C 05/13/21 23:09 Pulse 114 H 05/13/21 23:09 Respiratory Rate 20 05/13/21 23:09 Blood Pressure 127/78 05/13/21 23:09 Pulse Oximetry 93 05/13/21 23:09 Temperature 37.2 C 05/13/21 23:09 Temperature Source Temporal Artery Scan 05/13/21 23:09 Pulse 114 H 05/13/21 23:09 Respiratory Rate 20 05/13/21 23:09 Blood Pressure 127/78 05/13/21 23:09 Blood Pressure Position Sitting 05/13/21 23:09 Pulse Oximetry 93 05/13/21 23:09 Oxygen Delivery Method Room Air 05/13/21 23:09 Oxygen Flow Rate 0 05/13/21 23:09 Lab/Test Results Lab/Test Results: 05/13/21 23:15 Blood Blood Culture - Pending 05/13/21 23:15 Blood Blood Culture - Pending
[2021-05-13 23:48] LABS: Lactate 0.8 mmol/L (0.6-1.4)
[2021-05-13 23:49] LABS: Abs Immature Grans 0.01 10^3/uL (0.0-0.06); Absolute Basophil Count 0.03 10^3/uL (0.0-0.2); Absolute Eosinophil Count 0.02 10^3/uL (0.0-0.7); Absolute Lymphocyte Count 1.45 10^3/uL (1.2-3.4); Absolute Monocyte Count 1.07 10^3/uL (0.1-0.8); Absolute Neutrophil Count 2.59 10^3/uL (1.2-6.7); Basophils % 0.6; Eosinophils % 0.4; HCT 45.4 % (40.0-50.0); HGB 15.4 g/dL (13.5-17.5); Immature Grans % 0.2; MCH 29.7 pg (27.0-33.0); MCHC 33.9 % (32.0-36.0); MCV 87.5 fL (80-95); MPV 10.1 fL (8.0-11.0); Monocytes % 20.7; Neutrophils % 50.1; Nucleated RBC 0 %; Platelet Count 294 10^3/uL (130-400); RBC 5.19 10^6/uL (4.36-5.78); RDW-SD 38.8 fL; WBC 5.17 10^3/uL (4.4-10.8)
[2021-05-14] VITALS: RESP 1
[2021-05-14 00:05] LABS: ALT 39 U/L (16-63); AST 35 U/L (15-37); Albumin 4.1 g/dL (3.4-5.0); Alkaline Phosphatase 109 U/L (46-116); Anion Gap 10.9 mmol/L (3-11); BUN 20 mg/dL (7-18); Bilirubin, Total 0.4 mg/dL (0.2-1.0); CO2 26.1 mmol/L (21.0-32.0); CREATININE 1.4 mg/dL (0.70-1.30); Calcium 8.8 mg/dL (8.5-10.1); Chloride 99 mmol/L (98-107); Estimated GFR 58.01 (mL/min/1.73m2); Glucose 97 mg/dL (74-106); Lipase 136 U/L (73-393); Potassium 3.7 mmol/L (3.5-5.1); Sodium 136 mmol/L (136-145); Total Protein 8.9 g/dL (6.4-8.2)
[2021-05-14] MEDS: Omnipaque 350 MG/ML 100 ML BTL IJ (00:39)
[2021-05-14] MEDS: Normal Saline - Diluent 50 ML VIAL IV (00:40)
[2021-05-14] MEDS: Normal Saline Flush 10 ML SYR IVP (00:40)
[2021-05-14 00:42] LABS: COVID-19 PCR Negative (Negative)
[2021-05-14] MEDS: Normal Saline 1,000 ML 1000 ML IV (01:02)
[2021-05-14] MEDS: Ondansetron 4 MG/2 ML VIAL IVP (01:02)
--- NOTE | 2021-05-14 01:06 | DI.VRAD_ITS ---
PROCEDURE INFORMATION: Exam: XR Chest Exam date and time: 05/13/2021 12:07 AM Age: 35 years old Clinical indication: Cough and fever and shortness of breath; Patient HX: Fever, SOB, cough TECHNIQUE: Imaging protocol: XR of the chest. Views: 1 view. Total images: 1 COMPARISON: CR CHEST 2 VIEWS PA,LAT 12/10/2015 6:35 PM FINDINGS: Lungs: Normal pulmonary expansion. Pulmonary vasculature grossly normal. Mild peribronchial thickening and perihilar stranding suggesting possible bronchitis. Minor left perihilar alveolar opacity could represent subsegmental atelectasis or perihilar pneumonia. Pleural spaces: No pleural effusion. No pneumothorax. Heart/Mediastinum: Heart size normal. No tracheal/mediastinal shift. Bones/joints: No acute osseous abnormalities are identified. IMPRESSION: 1. Bilateral bronchial wall thickening and perihilar streaking suggesting bronchitis. 2. Patchy left perihilar alveolar opacities could represent subsegmental atelectasis or mild perihilar pneumonia. Dictated and Authenticated by: Franco Sifuentes MD. Ordering:DOMINGO Rincon MD
--- NOTE | 2021-05-14 01:13 | DI.VRAD_ITS ---
PROCEDURE INFORMATION: Exam: CT Abdomen And Pelvis With Contrast Exam date and time: 05/13/2021 11:16 PM Age: 35 years old Clinical indication: Localized; Patient HX: Lower abdominal pain, vomiting, diarrhea, fever TECHNIQUE: Imaging protocol: Computed tomography of the abdomen and pelvis with contrast. Total images: 1285 Radiation optimization: All CT scans at this facility use at least one of these dose optimization techniques: automated exposure control; mA and/or kV adjustment per patient size (includes targeted exams where dose is matched to clinical indication); or iterative reconstruction. Contrast material: OMNIPAQUE 350; Contrast volume: 100 ml; Contrast route: INTRAVENOUS (IV); COMPARISON: CR ABD FLAT UPRIGHT PA CHEST 10/28/2014 6:54 PM FINDINGS: Lungs: Peripheral reticulonodular densities in the lingula and lateral left base concerning for nodular infiltrates, consider atypical organisms. Heart: Heart size normal. Mediastinal space: The visualized distal esophagus is normal. Liver: Normal contour. No mass lesions. No intrahepatic biliary ductal dilatation. Gallbladder and bile ducts: Normal. No calcified stones. No ductal dilation. Pancreas: Normal. No inflammatory changes or ductal dilation. Spleen: Normal. No splenomegaly. Adrenal glands: Normal. No adrenal mass. Kidneys and ureters: No acute abnormalities. No hydronephrosis or hydroureter. No urinary tract stones are identified. 13 mm fat density angiomyolipoma in the right renal cortex which does not require further evaluation.There are multiple simple left renal cortical cysts. No further imaging evaluation is required. Stomach and bowel: The stomach is largely contracted without gross abnormality. There is excessive fluid content in the distal small bowel and colon, consistent with diarrheal state and possibly mild enterocolitis. No small bowel dilatation or transition point suggestive of bowel obstruction was identified. No evidence of perforation or abscess. Appendix: The appendix is normal in caliber and demonstrates no evidence of appendicitis. Intraperitoneal space: No free fluid or air. Vasculature: No acute process. No abdominal aortic aneurysm. Minor calcific atherosclerosis in the bilateral iliac arteries. Lymph nodes: No adenopathy. Urinary bladder: Unremarkable as visualized. Reproductive: Unremarkable as visualized. Bones/joints: No acute osseous abnormalities. Soft tissues: Unremarkable. Other findings: Central bronchial wall thickening partially visualized suggesting an element of bronchitis. IMPRESSION: 1. Findings suggestive of mild generalized enterocolitis and diarrheal state. No evidence of bowel obstruction, perforation, or abscess. 2. Central bronchial wall thickening in the lung bases suggesting an element of bronchitis, with peripheral reticulonodular infiltrates in the lingula and lateral left lung base concerning for atypical pneumonia or possibly chronic small airways disease. 3. Additional non-emergent findings detailed above. Dictated and Authenticated by: Franco Sifuentes MD. Ordering:DOMINGO Rincon MD
[2021-05-14] MEDS: Dicyclomine 20 MG TAB PO (01:20)
[2021-05-14 01:35] VITALS: BP 133/65; PULSE 96; RESP 18; O2SAT 94
[2021-05-14] MEDS: Azithromycin 250 MG TAB 500 MG PO (01:48)
[2021-05-14] MEDS: Dicyclomine 20 MG TAB (02:00)
== END 2021-05-14 02:07 | disposition home or self-care (01) ==
PROVIDERS: Emergency Provider Student in an Organized Health Care Education/Training Program; PCP Family Medicine
DX: J18.9 Pneumonia, unspecified organism (principal); K52.89 Other specified noninfective gastroenteritis and colitis
CPT/HCPCS: 36415; 80053; 83690; 87040; 87635; 96361; 96374; 99285; 71045; 74177; 83605; 85025; 99284; J2405; J3490; J7620

== ENCOUNTER 2021-11-18 19:01 | Emergency (ER) | payer MEDICARE, MEDICAID, SELFPAY ==
[2021-11-18 19:07] VITALS: BP 144/86; PULSE 89; RESP 18; TEMP 36.2; O2SAT 97
--- NOTE | 2021-11-18 19:28 | ED.GENADUL_ITS ---
Discharge Plan Disposition Patient Disposition: HOME Condition: Stable Discharge Details Clinical Impression: Sinusitis Primary Care Provider: José Miguel Bennett ED Provider: Hermelinda Barney Home Meds and New Rx's Prescriptions: New doxycycline hyclate 100 mg capsule 100 mg PO BID 10 Days Qty: 20 RF: 0 No Action vitamin B complex Tablet 1 tab PO DAILY RF: 0 fluoxetine 20 mg capsule 20 mg PO DAILY Qty: 90 RF: 3 albuterol sulfate 90 mcg/actuation HFA aerosol inhaler 2 puff inhalation Q6H PRN (Reason: shortness of breath or wheezing) Qty: 18 RF: 3 omeprazole 20 mg capsule,delayed release(DR/EC) 20 mg PO DAILY Qty: 90 RF: 3 budesonide-formoterol [Symbicort] 80-4.5 mcg/actuation HFA aerosol inhaler 2 puff inhalation BID Qty: 10.2 RF: 0 Discharge Instructions Instructions: Sinusitis (ED), COVID-19 (Coronavirus Disease 2019) (ED) Additional Instructions: You may use uflt-ypv-crmgopc Flonase or similar 1 or 2 sprays to each nostril once daily for the next 7 to 10 days. Continue using Sudafed, please take Tylenol or Ibuprofen with food every 4-6 hours as needed for pain and swelling. Please take a multivitamin including vitamin D, vitamin C and zinc. Follow up with primary care provider in 3-5 days. Return to ED sooner if any worsening or concerns. Increase oral fluids. Take the antibiotics twice daily for the next 10 days as instructed. Referrals: José Miguel Bennett DO [Primary Care Provider] - 1 week Medical Decision Making 36-year-old male presents to the ER chief complaint of sinus pressure and sinus headache which began yesterday. Patient reports that he was COVID on the . He reports he has been taking Sudafed and ibuprofen at home today as a pressure increase. He denies any shortness of breath. He does endorse to smoking marijuana does have a small expiratory wheeze noted on the left lower lobe. He denies any ear pain or throat pain. He does sound congested. Past medical history includes PTSD, anxiety, right exotropia, community-acquired pneumonia. Will give patient Doxycycline due to a PCN allergy for possible sinusitis. Did instruct him to take stuz-qoi-wcsdnja Flonase 1 or 2 sprays once daily and continue taking Sudafed. This text was generated using Seeonication system, please disregard any oddities of phrase or misspellings. HPI General Mode of arrival: ambulatory . Date/Time Provider Initiated Documentation: 11/18/21 19:18 . Limitations to Documentation: no limitations . Information obtained by: patient . HPI Narrative: 36-year-old male presents to the ER chief complaint of sinus pressure and sinus headache which began yesterday. Patient reports that he was COVID on the . He reports he has been taking Sudafed and ibuprofen at home today as a pressure increase. He denies any shortness of breath. He does endorse to smoking marijuana does have a small expiratory wheeze noted on the left lower lobe. He denies any ear pain or throat pain. He does sound congested. Past medical history includes PTSD, anxiety, right exotropia, community-acquired pneumonia. Related Data Home Medications Medication Instructions Recorded Confirmed omeprazole 20 mg capsule,delayed 20 mg PO DAILY #90 cap 10/13/20 11/18/21 release albuterol sulfate 90 mcg/actuation 2 puff INHALATION Q6H PRN #18 g 07/10/21 11/18/21 aerosol inhaler fluoxetine 20 mg capsule 20 mg PO DAILY #90 cap 07/10/21 11/18/21 vitamin B complex 1 tab PO DAILY 07/10/21 11/18/21 budesonide-formoterol HFA 80 2 puff INHALATION BID #10.2 g 10/07/21 11/18/21 mcg-4.5 mcg/actuation aerosol inhaler doxycycline hyclate 100 mg PO BID 10 Days #20 cap 11/18/21 Previous Rx's Medication Instructions Recorded omeprazole 20 mg capsule,delayed 20 mg PO DAILY #90 cap 10/13/20 release albuterol sulfate 90 mcg/actuation 2 puff INHALATION Q6H PRN #18 g 07/10/21 aerosol inhaler fluoxetine 20 mg capsule 20 mg PO DAILY #90 cap 07/10/21 budesonide-formoterol HFA 80 2 puff INHALATION BID #10.2 g 10/07/21 mcg-4.5 mcg/actuation aerosol inhaler doxycycline hyclate 100 mg PO BID 10 Days #20 cap 11/18/21 Allergies Allergy/AdvReac Type Severity Reaction Status Date / Time Penicillins Allergy Severe Swelling/Ed Verified 11/18/21 19:11 carie asparaginase Allergy Unknown Hives Verified 11/18/21 19:11 sertraline HCl [From Zoloft] Allergy Unknown black out Verified 11/18/21 19:11 hydroxyzine AdvReac Intermediate Other (See Verified 11/18/21 19:11 Comment) General Stated Complaint: RespSymp VINCENZO: 4 Review of Systems All systems reviewed & are unremarkable except as noted in HPI and below PFSH All Active Problems (Updated 11/18/21 @ 19:33 by Hermelinda Barney) Sinusitis (Acute) Community acquired pneumonia (Acute) Enteritis (Acute) Low back pain (Acute) Hyperopia of left eye with astigmatism (Acute) Exotropia, right eye (Acute) PSC (posterior subcapsular cataract), right (Acute) Neurocognitive deficits (Acute) Optic atrophy (Acute) PTSD (post-traumatic stress disorder) (Acute) 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 Bacterial conjunctivitis of right eye (Acute) Anxiety (Chronic) Panic disorder (Acute) Family History Mother Anxiety Asthma Father Diabetes Social History Smoking/Tobacco Use Status: Former Tobacco Use Tobacco: How many years used: 13 Smoking risk assessment performed?: Yes Alcohol Intake: never Drug use: Daily Substance use type: marijuana Details: has been cutting back on marijuana use- smokes about 2x/day. Adopted: No Caregiver/Support person: No Foster care: No Household members: significant other Housing: house Number of Children: 0 Communication Needs: Corrective Lenses Education Level: high school Do you need help understanding health information?: Rarely current occupation: Disabled Sexually active: Yes Do you think of yourself as: straight/heterosexual Current gender identity: male What is your relationship status?: living with partner Panel score (0-1 are the most socially isolated patients): 1 What type of physical activity do you participate in: walking Duration: 15-30 minutes/day Frequency: daily Seatbelt use: always Drive intox or ride w/intox wrecker driver: No Working smoke detector in home: Yes Fire extinguisher in home: Yes Carbon monox detector in home: Yes Do you feel safe at home: Yes Do you feel safe in your relationship?: Yes Exam Narrative Exam Narrative: Constitutional: Alert and oriented x3. Appears stated age. Normal body habitus. Head: Normocephalic, no trauma. Eyes: Pupils PERRL, Red reflex noted, EOM's intact. Eyelids symmetrical without lesions, discharge, or swelling. ENT: Bilateral TM's WNL, External ear normal to inspection, no mastoid TTP, swelling, or erythema, Nasal turbinates WNL, no nasal discharge. Normal dentition, Posterior pharynx erythemic, no exudate. Sinus tenderness noted with palpation to the maxillary sinuses. Patient sounds congested. Chest: RRR, Normal S1, S2, distal pulses intact. Resp: Mild scattered expiratory wheeze noted to left lower lobe. Abdomen: Soft, non-distended, Normoactive bowel sounds all 4 quads. Musculoskeletal: Normal gait, 5/5 strength to all four extremities. Skin: No suspicious rashes or lesions. Capillary refill less than 2 sec. Neurologic: Cranial nerves II-XII intact. Alert and oriented x 3. Motor: No deficits noted. Sensory: Intact bilaterally all 4 extremities. Reflexes: DTR's intact bilaterally.. Hematologic/Lymphatic: No ecchymosis, no lymphadenopathy. Course Vital Signs Vital signs: Vital Signs Temperature 36.2 C L 11/18/21 19:07 Pulse 89 11/18/21 19:07 Respiratory Rate 18 11/18/21 19:07 Blood Pressure 144/86 H 11/18/21 19:07 Pulse Oximetry 97 11/18/21 19:07 Temperature 36.2 C L 11/18/21 19:07 Pulse 89 11/18/21 19:07 Respiratory Rate 18 11/18/21 19:07 Respiratory Effort 11/18/21 19:14 Respiratory Depth Normal 11/18/21 19:14 Blood Pressure 144/86 H 11/18/21 19:07 Blood Pressure Position Sitting 11/18/21 19:07 Pulse Oximetry 97 11/18/21 19:07 Oxygen Delivery Method Room Air 11/18/21 19:07 Oxygen Flow Rate 0 11/18/21 19:07 Pain Level 5 11/18/21 19:07
[2021-11-18] MEDS: Doxycycline Hyclate 100 MG CAP PO (19:49)
== END 2021-11-18 19:49 | disposition home or self-care (01) ==
PROVIDERS: Emergency Provider Registered Nurse Emergency; PCP Family Medicine
DX: J01.90 Acute sinusitis, unspecified (principal); Z86.16 Personal history of COVID-19
CPT/HCPCS: 99283

== ENCOUNTER 2022-05-11 02:06 | Outpatient (CLI) | payer MEDICARE, MEDICAID, SELFPAY ==
--- OUTSIDE RECORDS SUMMARY | 2022-05-11 02:16 | XMS_ITS | Encounter Summary ---
:1985 Author Organization [facility] [place] [address] Care Team Providers Name Role Phone Oanh Yang FARHAT Primary Care Provider Encounter Details Date Type Department Care Team Description 11/05/2019 Telephone Neurosurgery at [facility] [place] [address] Social History Tobacco Use Types Packs/Day Years Used Date Former Smoker Quit: 10/28/19 14 Smokeless Tobacco: Never Used Comments: marijuana (few times at day) Alcohol Use Standard Drinks/Week Comments Not Currently 0 (1 standard drink = 0.6 oz pure alcoho l) Sex Assigned at Date Recorded Not on file documented as of this encounter Miscellaneous Notes Telephone Encounter - Ofelia Lucero RN - 11/05/2019 2:31 PM EST I called the phone number listed for Toya but the recording came on with a different name (Marcellus). I left a message letting them know if this was the correct number for a patient of [facility] in Neurosurgery to call me back on my direct line, and I gave that phone number. Telephone Encounter - Lyric Lawton - 11/05/2019 11:50 AM EST Caller: Girlfriend If not the patient: Name of caller: Toya Tovar Relationship to patient: Personal Rep on file?: Best time to reach caller: Anytime Best number to reach caller: [phone] Reason for call: Pt's girlfriend calling Chele has been depressed for 1-2 months not himself she isworried it is the tumor. Please call to discuss Recent Surgery?: No If before 4:00 pm: Inform caller that the typical expectation for a call back is within 1-2 hours. If after 4:00 pm: Inform caller that if the nurse does not call back by the end of the day, they will be called in the AM of the next business day. documented in this encounter Plan of Treatment Not on filedocumented as of this encounter Visit Diagnoses Not on filedocumented in this encounter Care Teams Police Lieutenant Relationship Specialty Start Date End Date Oanh Yang, MILITARY COOK PCP - General Family Medicine 09/17/17 [address] [place] [address] documented as of this encounter
--- OUTSIDE RECORDS SUMMARY | 2022-05-11 02:16 | XMS_ITS | Encounter Summary ---
:1985 Author Organization [facility] [place] [address] Care Team Providers Name Role Phone Oanh Yang FARHAT Primary Care Provider Reason for Referral Diagnostic Test (Routine) - Closed Specialty Diagnoses / Procedures Referred By Contact Refer red To Contact Radiology Diagnoses Meningioma Taco Chaudhary MD [facility] Rad Mri Procedures MRI Brain wwo Contrast (Generic) [facility] HEMATOLOGY/[place] [address] [place] [address] Referral ID Status Reason Start Date Expiration Date Visits V isits Requested Authorized [id number] Closed Specialty 06/15/2019 06/14/2020 1 1 Service Requested Reason for Visit Diagnostic Test (Routine) - Closed Specialty Diagnoses / Procedures Referred By Contact Refer red To Contact Radiology Diagnoses Meningioma Taco Chaudhary MD [facility] Rad Mri Procedures MRI Brain wwo Contrast (Generic) [facility] HEMATOLOGY/[place] [address] [place] [address] Referral ID Status Reason Start Date Expiration Date Visits V isits Requested Authorized [id number] Closed Specialty 06/15/2019 06/14/2020 1 1 Service Requested Encounter Details Date Type Department Care Team Description 07/10/2019 Hospital Encounter MRI at [facility] Taco Chaudhary, Meningioma [facility] MD Franco [facility] [address] [facility]ATOLOGY[facility]ONCOLOGY [address] DEPT. [phone] [facility] [place] [address] (Wo rk) Social History Tobacco Use Types Packs/Day Years Used Date Former Smoker Quit: 10/28/19 14 Smokeless Tobacco: Never Used Comments: marijuana (few times at day) Alcohol Use Standard Drinks/Week Comments Not Currently 0 (1 standard drink = 0.6 oz pure alcoho l) Sex Assigned at Date Recorded Not on file documented as of this encounter Medications at Time of Discharge Medication Sig Dispensed Refills Start Date End Date ALPRAZolam (XANAX) 0.25 Take 0.25 mg by mouth 0 0 06/04/2019 mg Tablet daily. FLUoxetine (PROZAC) 20 mg Take 20 mg by mouth 0 0 05/27/2019 Capsule daily. UNABLE TO CBD oil 0 FINDIndications: Leukemia, acute lymphoid, in remission, Fatigue, unspecified type UNABLE TO Marijuana 0 FINDIndications: Leukemia, acute lymphoid, in remission, Fatigue, unspecified type documented as of this encounter Progress Notes Kacie Little RN - 07/10/2019 10:37 AM EDT MRI PRE-SEDATION ASSESSMENT NOTE NAME: Chele Kerr AGE: 33 y.o. : 1985 [address] [facility] [address] Male [phone] (home) Telephone Information: Oanh Yang, SKIVING MACHINE OPERATOR No primary care provider on file. Allergies Allergen Reactions ??? Hydroxacen [Hydroxyzine Hcl] Other (See Comments) unresponsive ??? Antihistamine [Uybqikuftwzpfoz-Axkekseq-Moflh] ??? Asparaginase Hives Reaction to E. Coli asparaginase including the PEG formulation. ??? Penicillins CIS - RASH ??? Zoloft [Sertraline] Date/Time of call: July 07, 2019/7:44 AM/ Order Questions Answers Where will study be performed? [facility] Radiology [120] Reason for exam and clinical history: 33 YOM with h/o childhood ALL with therapy that included SUPERVISOR DIAGNOSTIC XRT. Recently had Head CT that showed probable right parietal meningioma. CT scan has been pushed [facility]. MRI to better define abnormality. Other pertinent information: Patient does have issues with anxiety and may require oral or IV sedation. Stat read required? No Does patient require sedation? Oral GA rationale: Anxiety/Claustrophobia PREVIOUS MRI SCAN? Yes, OSH years ago HEIGHT: 5'7 WEIGHT: 215 lbs SCHEDULED SCAN: MRI BRAIN WWO CONTRAST [BMH140] (60 mins, feet first, supine) SUBJECTIVE: Extreme claustrophobia CAN YOU LAY FLAT? Yes AIRWAY ISSUES? No DO YOU HAVE ANY INVOLUNTARY MOVEMENTS? No DO YOU HAVE ANY PAIN? No DO YOU TAKE PAIN MED ON A DAILY BASIS? No ASSESSMENT: Pt is appropriate for po sedation. PLAN: Ativan 1 mg PO x 2 ordered, however pt may bring home med in and will decide on day of which he wants to take. ( tme) You must have a special needs bus driver present when you check in. This patient has been informed that they require a special needs bus driver to drive them home after this procedure. In the absence of a special needs bus driver, IR will not be able to sedate for your scan. Pt verbalized understanding of these instructions during the pre-procedure education via phone. Yes X [place] of special needs bus driver: Mother and girlfriend Phone number PRIOR SCAN DATE/S SEDATION TYPE SUCCESSFUL No Known Prior 07/10/19 MRI Brain wwo Contrast Alprazolam 0.25 mg PO x2 (Patient's own med.) Yes Revised 03/25/18 documented in this encounter Plan of Treatment Not on filedocumented as of this encounter Procedures Procedure Name Priority Date/Time Associated Diagnosis Comme nts MRI BRAIN WWO Routine 07/10/2019 11:26 AM Meningioma Results for this CONTRAST (GENERIC) EDT procedure are in the results section. documented in this encounter Results MRI Brain wwo Contrast (Generic) (07/10/2019 11:26 AM EDT) Anatomical Region Laterality Modality Head Magnetic Resonance Specimen (Source) Anatomical Location Collection Method / Collectio n Time Received Time / Laterality Volume Impressions 07/10/2019 12:08 PM EDT Homogeneously enhancing extra-axial mass characteristic of meningioma over the right posterior frontal region. Global atrophy and brain parenchymal sig nal changes likely related to prior radiation therapy. Thank you for letting us participate in the care of this patient. For questions regarding this report, please contact e number below. ? Narrative 07/10/2019 12:08 PM EDT EXAMINATION: MRI BRAIN WWO CONTRAST (GENERIC) CLINICAL HISTORY: 33 YOM with h/o childh ood ALL with therapy that included SUPERVISOR DIAGNOSTIC XRT. Recently had Head CT that showed p robable right parietal meningioma. CT scan has been pushed to [facility]. ??MRI to be tter define abnormality. Patient does have issues with anxiety an d may require oral or IV sedation. TECHNIQUE: MRI of the brain was performed before an d after the intravenous administration of 20cc Dotarem. COMPARISON: 07/17/[address] dated 05/17/2019 FINDINGS: Corresponding to an area of high attenua tion seen on CT exam there is a homogeneously enhancing extra-axial mass with broad dural attachment over the right posterior frontal region best appr eciated on images 14 and 15 of series 10 measuring approximately 14 mm. There is no other mass or abnormal enhan cement identified. There is mild T2 hyperintensity projecti ng the periventricular white matter primarily adjacent to frontal horns and atrium of lateral ventricles bilaterally. There is prominence of cent ral and peripheral CSF spaces which is greater than expected for patient's age. No cortical infarctions, brain parenchym al mass or extra-axial fluid collection. Central flow voids and midline structure s are unremarkable. The skull base soft tissues and orbits a re unremarkable. Procedure Note Franco Titus MD - 07/10/2019Formatt ing of this note might be different from the original. EXAMINATION: MRI BRAIN WWO CONTRAST (GEN RADHA) CLINICAL HISTORY: 33 YOM with h/o childh ood ALL with therapy that included SUPERVISOR DIAGNOSTIC XRT. Recently had Head CT that showed p robable right parietal meningioma. CT [facility]. Patient does have issues with anxiety an d may require oral or IV sedation. TECHNIQUE: MRI of the brain was performed before an d after the intravenous administration of 20cc Dotarem. COMPARISON: 07/17/[address] dated 05/17/2019 FINDINGS: Corresponding to an area of high attenua tion seen on CT exam there is a homogeneously enhancing extra-axial mass with broad dural attachment over the right posterior frontal region best appr eciated on images 14 and 15 of series 10 measuring approximately 14 mm. There is no other mass or abnormal enhan cement identified. There is mild T2 hyperintensity projecti ng the periventricular white matter primarily adjacent to frontal horns and atrium of lateral ventricles bilaterally. There is prominence of cent ral and peripheral CSF spaces which is greater than expected for patient's age. No cortical infarctions, brain parenchym al mass or extra-axial fluid collection. Central flow voids and midline structure s are unremarkable. The skull base soft tissues and orbits a re unremarkable. IMPRESSION Homogeneously enhancing extra-axial mass characteristic of meningioma over the right posterior frontal region. Global atrophy and brain parenchymal sig nal changes likely related to prior radiation therapy. Thank you for letting us participate in the care of this patient. For questions regarding this report, please contact e number below. Taco Chaudhary MD IMG MRI ORDERABLES documented in this encounter Visit Diagnoses Diagnosis Meningioma Benign neoplasm of cerebral meninges documented in this encounter Care Teams Cyber Workforce Developer And Manager Relationship Specialty Start Date End Date Oanh Yang APRN PCP - General Family Medicine 09/17/17 [address] [place] [address] documented as of this encounter
--- OUTSIDE RECORDS SUMMARY | 2022-05-11 02:16 | XMS_ITS | Clinical Summary ---
:1985 Author Organization [facility] [place] [address] Care Team Providers Name Role Phone Oanh Yang FARHAT Primary Care Provider Allergies Active Allergy Reactions Severity Noted Date Comments Diphenhydramine-Tripele 06/26/2019 n-Menth Asparaginase Hives Reaction to E. Coli asparaginase in cluding the PEG formula tion. Hydroxyzine Hcl Other (See Comments) High 05/30/2019 unre sponsive Omeprazole Anxiety 03/17/2020 SOB Penicillins CIS - RASH Sertraline 06/28/2016 Medications Medication Sig Dispensed Refills Start Date End Date Status UNABLE TO CBD oil 0 Active FINDIndications: Leukemia, acute lymphoid, in remission, Fatigue, unspecified type UNABLE TO Marijuana 0 Active FINDIndications: Leukemia, acute lymphoid, in remission, Fatigue, unspecified type ALPRAZolam (XANAX) Take 0.25 mg by 0 06/04/2019 Active 0.25 mg Tablet mouth daily. FLUoxetine (PROZAC) Take 20 mg by mouth 0 05/27/2019 Active 20 mg Capsule daily. 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 Optic atrophy 02/13/2012 Resolved Problems Problem Noted Date Resolved Date Hyperopia with astigmatism 01/05/2015 06/28/2016 Family History Medical History Relation Comments Diabetes Father Strabismus Mother Amblyopia Neg Hx Blindness Neg Hx Cancer Neg Hx Cataracts Neg Hx Glaucoma Neg Hx Heart Disease Neg Hx Hypertension Neg Hx Macular Degeneration Neg Hx Retinal Detachment Neg Hx Stroke Neg Hx Thyroid Disease Neg Hx Relation Status Comments Father Alive Mother Alive Sister Alive Social History Tobacco Use Types Packs/Day Years Used Date Former Smoker Quit: 10/28/19 14 Smokeless Tobacco: Never Used Comments: marijuana (few times at day) Alcohol Use Standard Drinks/Week Comments Not Currently 0 (1 standard drink = 0.6 oz pure alcoho l) Sex Assigned at Date Recorded Not on file Last Filed Vital Signs Vital Sign Reading Time Taken Comments Blood Pressure 132/84 07/10/2019 1:30 PM EDT Pulse 98 07/10/2019 1:30 PM EDT Temperature 37.2 ??C (99 ??F) 06/12/2019 9:38 AM EDT Respiratory Rate 18 06/12/2019 9:38 AM EDT Oxygen Saturation 100% 06/12/2019 9:38 AM EDT Inhaled Oxygen Concentration - - Weight 103 kg (227 lb 1.2 oz) 07/10/2019 1:30 PM EDT Height 170.2 cm (5' 7) 07/10/2019 1:30 PM EDT Body Mass Index 35.56 07/10/2019 1:30 PM EDT Plan of Treatment Health Maintenance Due Date Last Done Comments Covid-19 Vaccine (#1) 1991 Pneumococcal Vaccine: At-Risk 5-64yrs (1 - PCV) 1992 HIV screen 2004 Hepatitis C Screening 2004 Lipid Screening 2004 Tdap adult 2005 Tetanus vaccine 2005 Influenza (Flu) vaccine (1 of - Influenza standard 06/28/2022 series) Insurance Payer Benefit Plan / Subscriber ID Effective Dates Phone Addre ss Type Group MEDICARE MEDICARE PART [id number] 2011-Presen [id number] [place] [address] [place] [id number] 2019-Prese [phone] [address] [place] [address] Advance Directives Documents on File Type Date Recorded Patient Blower Room Attendant Explanati on Personal Blower Room Attendant 06/16/2019 9:32 AM nano setih Personal Blower Room Attendant 06/16/2019 9:32 AM luisa wang Care Teams Oral Surgery Technician Relationship Specialty Start Date End Date Oanh Yang, STEMMER MACHINE PCP - General Family Medicine 09/17/17 [address] [place] [address]
--- OUTSIDE RECORDS SUMMARY | 2022-05-11 02:16 | XMS_ITS | Encounter Summary ---
:1985 Author Organization [facility] [place] [address] Care Team Providers Name Role Phone Oanh Yang Jessica DOUGHERTY Primary Care Provider Reason for Visit Diagnostic Test (Routine) - Closed Specialty Diagnoses / Procedures Referred By Contact Refer red To Contact Radiology Diagnoses Meningioma [facility] Neurosurgery 3c [facility] Rad Mri Procedures MRI Brain wwo Contrast (Generic) [place] [address] [place] [address] Phone: Referral ID Status Reason Start Date Expiration Date Visits V isits Requested Authorized [id number] Closed Specialty 12/30/2019 07/01/2021 1 1 Service Requested Encounter Details Date Type Department Care Team Description 01/28/2020 Hospital Encounter MRI at [facility] Beatrice Ko, Canceled (D-ARRIVED [facility] LATE/NOT SEEN) [facility] [address] NEUROSURGERY [phone] [place] [address] Social History Tobacco Use Types Packs/Day Years [...] unspecified type documented as of this encounter Plan of Treatment Not on filedocumented as of this encounter Visit Diagnoses Not on filedocumented in this encounter Care Teams Psychiatric Np Relationship Specialty Start Date End Date Oanh Yang APRN PCP - General Family Medicine 09/17/17 Tricia [address]STRADA [address] [place] [address] documented as of this encounter
--- OUTSIDE RECORDS SUMMARY | 2022-05-11 02:16 | XMS_ITS | Encounter Summary ---
:1985 Author Organization [facility] [place] [address] Care Team Providers Name Role Phone Oanh Yang Jessica DOUGHERTY Primary Care Provider Reason for Visit Reason Comments Advice Only Rigth parietal Menigioma Consultation (Routine) - Closed Specialty Diagnoses / Procedures Referred By Contact Refer red To Contact Neurosurgery Diagnoses Meningioma 33 YOM with h/o childhood ALL, treatment for which included ED TECH XRT, now with apparent right parietal menigioma on CT. F/U MRI Ordered. Taco Chaudhary, [facility] Neurosurgery [address] [place] [address] HEMATOLOGY/ONCOLOGY Phone: [place] [address] Referral ID Status Reason Start Date Expiration Date Visits V isits Requested Authorized [id number] Closed Consult, 06/15/2019 06/14/2020 1 1 Test & Treat Encounter Details Date Type Department Care Team Description 07/10/2019 Office Visit Neurosurgery at [facility] Beatrice Ko, Meningioma (Primary [facility] [place] [address] [address]ENTER [phone] NEUROSURGERY [place], [place] [address] Social History Tobacco Use Types Packs/Day Years Used Date Former Smoker Quit: 10/28/19 14 Smokeless Tobacco: Never Used Comments: marijuana (few times at day) Alcohol Use Standard Drinks/Week Comments Not Currently 0 (1 standard drink = 0.6 oz pure alcoho l) Sex Assigned at Date Recorded Not on file documented as of this encounter Last Filed Vital Signs Vital Sign Reading Time Taken Comments Blood Pressure 132/84 07/10/2019 1:30 PM EDT Pulse 98 07/10/2019 1:30 PM EDT Temperature - - Respiratory Rate - - Oxygen Saturation - - Inhaled Oxygen Concentration - - Weight 103 kg (227 lb 1.2 oz) 07/10/2019 1:30 PM EDT Height 170.2 cm (5' 7) 07/10/2019 1:30 PM EDT Body Mass Index 35.56 07/10/2019 1:30 PM EDT documented in this encounter Progress Notes Beatrice Ko MD - 07/10/2019 2:00 PM EDT Neurosurgery Consultation 07/10/2019 Chele Galeaslogan [id number] 1985 CC: Right frontal meningioma HPI: It was a pleasure to meet Chele Kerr at the request of Dr. Taco Garza, regarding his newdiagnosis of right frontal meningioma. Mr. 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 He has been developing increasing anxiety, and recently presented to the emergency department after a panic attack. He underwent a head CT which demonstrated a calcified mass concerning for meningioma. He was therefore referred to my clinic. Mr. Kerr currently denies any headaches, seizures, weakness, numbness, neurologic symptoms. He was evaluated for encephalopathy recently by Dr. Ksahif Maxwell in neurology, which was felt to be secondary to his cancer treatment. His health overall has been very stable. PMH/PSH: Past Medical History: Diagnosis Date ??? Anxiety and depression 06/26/2019 ??? Cancer T cell ALL dx 10/1992,ED TECH relapse 02/1995 ??? Encephalopathy Presumed secondary to treatment ??? Fatigue 07/11/2018 ??? 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 Neurocognitive deficits Presumed secondary to whole brain radiation and exposure to chemotherapy History reviewed. No pertinent surgical history. Medications: Current Outpatient Medications on File Prior to Visit Medication Sig Dispense Refill ??? FLUoxetine (PROZAC) 20 mg Capsule Take 20 mg by mouth daily. 0 ??? ALPRAZolam (XANAX) 0.25 mg Tablet Take 0.25 mg by mouth daily. 0 ??? UNABLE TO FIND CBD oil ??? UNABLE TO FIND Marijuana Current Facility-Administered Medications on File Prior to Visit Medication Dose Route Frequency Provider Last Rate Last Dose ??? [COMPLETED] gadoterate meglumine (DOTAREM) 0.5 mmol/mL (376.9 mg/mL) injection 0-100 mL 0-100 mLIntravenous Once PRN Franki Guerrero MD 20 mL at 07/10/19 1108 ??? [DISCONTINUED] LORazepam (ATIVAN) tablet 1 mg 1 mg Oral Q30 Min PRN Truong Trujillo MD Allergies: Allergies Allergen Reactions ??? Hydroxacen [Hydroxyzine Hcl] Other (See Comments) unresponsive ??? Antihistamine [Qtzbwernxebgzcp-Mxyzgafx-Mzmoh] ??? Asparaginase Hives Reaction to E. Coli asparaginase including the PEG formulation. ??? Penicillins CIS - RASH ??? Zoloft [Sertraline] Family Hx: Reviewed, noncontributory Social Hx: Quit smoking 5 years ago, quit smoking marijuana several months ago Denies etoh Denies illicits Lives with significant other in [place], [place]. On disability ROS: Constitutional: No recent weight loss / fevers / chills / night sweats. HEENT: No recent visual changes / hearing changes. Cardiovascular: No chest pain / palpitations. Pulmonary: No shortness of breath / cough GI: No abdominal pain / vomiting / change in bowel pattern : No dysuria / urinary retention / urinary incontinence. Physical Exam: Vital Signs: BP 132/84 Pulse 98 Ht 170.2 cm (5' 7) Wt 103 kg (227 lb 1.2 oz) BMI 35.56 kg/m?? General: NAD. HEENT: Atraumatic, normocephalic Neuro: Mental Status/Cognitive: Awake, alert, oriented x3 Speech: Fluent, appropriate Cranial Nerves: CN II - Visual acuity and echols grossly intact, PERRL, Baseline right exotropia. CN III, IV, - EOMI CN VII - No facial asymmetry CN IX, X - Palate and uvula midline CN XI - Trapezius 5/5 bilat CN XII - Tongue midline Motor: No pronator drift. Tone: Normal Power: Segment Muscle Action Right Left C5 Biceps Elbow flexion 5 5 C6 Extensor carpi radialis Wrist extension 5 5 C7 Triceps Elbow extension 5 5 C8, T1 Hand intrinsics Grasp 5 5 L2 Iliopsoas Hip flexion 5 5 L3 Quadriceps Knee extension 5 5 L4 Tibialis anterior Dorsiflexion 5 5 L5 Extensor hallucis Great toe extension 5 5 S1 Gastrocnemius Plantar flexion 5 5 Reflexes: 1+ and symmetric throughout Sensation in the extremities: Light touch: Intact x 4 Cerebellar exam: Dysmetria: None Dysdiadochokinesia Gait: Normal, able to do tandem gait Labs: None Imaging: I reviewed an MRI of the brain with and without contrast obtained this morning. This demonstrates a right frontal dural based heterogeneously enhancing lesion measuring approximately 14 mm just anterior to the motor strip. In comparison to his previous head CT, the tumor appears to be the same size. Assessment and Plan: In summary, Mr. Kerr is a 33-year-old gentleman with incidentally discovered right frontal meningioma. This tumor is small, and likely arose as a consequence of his previous cranial radiation. I discussed the treatment options of observation, stereotactic radiosurgery, and surgery with Mr. Kerr, his significant other, and his mother today. Each of these 3 strategies has its own risks and benefits. The majority of meningiomas are benign, slow-growing tumors, that require treatment only if they become symptomatic due to mass-effect or seizures. Because of his radiation history, his particular meningioma has a slightly higher risk of being malignant. Mr. Kerr has a strong dislike of surgery, and would prefer to manage his brain tumor with observation at the moment. I think this is very reasonable. We will plan on repeating an MRI with and without contrast in 6 months. If at that time, there is evidence of growth, or he should become symptomatic, we can revisit his other treatment options. Thank you very much for allowing me to participate in the care of this very nice gentleman. I spent 40 minutes of this 60 minute visit in [id number] counseling, coordination of care and reviewing medical records. documented in this encounter Plan of Treatment Not on filedocumented as of this encounter Visit Diagnoses Diagnosis Meningioma - Primary Benign neoplasm of cerebral meninges documented in this encounter Care Teams Hr Administrative Assistant Relationship Specialty Start Date End Date Oanh Yang, ASSOCIATION EXECUTIVE PCP - General Family Medicine 09/17/17 Tricia ESTRADA [address] [place] [address] documented as of this encounter
--- OUTSIDE RECORDS SUMMARY | 2022-05-11 02:16 | XMS_ITS | Encounter Summary ---
:1985 Author Organization [facility] [place] [address] Care Team Providers Name Role Phone Oanh Yang Jessica DOUGHERTY Primary Care Provider Encounter Details Date Type Department Care Team Description 01/28/2020 Telephone Neurosurgery at [facility] [place] [address] Social History Tobacco Use Types Packs/Day Years Used Date Former Smoker Quit: 10/28/19 14 Smokeless Tobacco: Never Used Comments: marijuana (few times at day) Alcohol Use Standard Drinks/Week Comments Not Currently 0 (1 standard drink = 0.6 oz pure alcoho l) Sex Assigned at Date Recorded Not on file documented as of this encounter Miscellaneous Notes Telephone Encounter - Lyric Lawton - 02/01/2020 3:07 PM EDT Called and scheduled for 03/18 appts, will adjust accordingly with Covid 19. Telephone Encounter - Beatrice Castro - 01/28/2020 3:27 PM EDT Patient needs f/u appointment(s): With GAYATRI on/around February 2020 1 month OV, s/p Meningioma, MRI Brain wwo prior ~~~~~~~~~~~~~~~~~~~~~~~~~~~~~~~~~~~~~~~~~~~~~~~~~~~~~~~~~ Beatrice Ko MD Sent: Jo-Ann January 28, 2020 11:27 AM To: P [facility] [place]/Containment Worker ?? Message Follow-up with MRI and coordinated clinic visit in February. Thank you, Nae Telephone Encounter - Beatrice Castro - 01/28/2020 3:27 PM EDT ----- Message from Beatrice oK MD sent at 01/28/2020 11:27 AM EDT ----- Follow-up with MRI and coordinated clinic visit in February. Thank you, Nae documented in this encounter Plan of Treatment Not on filedocumented as of this encounter Visit Diagnoses Not on filedocumented in this encounter Care Teams Flame Burner Relationship Specialty Start Date End Date Oanh Yang APRN PCP - General Family Medicine 09/17/17 Tricia [address]ADA [address] [place] [address] documented as of this encounter
--- OUTSIDE RECORDS SUMMARY | 2022-05-11 02:16 | XMS_ITS | Encounter Summary ---
:1985 Author Organization [facility] Address [facility] [place] [address] Care Team Providers Name Role Phone Oanh Yang FARHAT Primary Care Provider Reason for Visit Diagnostic Test (Routine) - Canceled Specialty Diagnoses / Procedures Referred By Contact Refer red To Contact Radiology Diagnoses Meningioma Beatrice Ko MD [facility] Rad Mri Procedures MRI Brain wwo Contrast (Generic) [facility] [place] [address] [place] [address] Referral ID Status Reason Start Expiration Visits Visits Date Date Requested Authorized [id number] Canceled Specialty 07/10/2019 07/09/2020 1 1 Service Requested Encounter Details Date Type Department Care Team Description 12/31/2019 Hospital Encounter MRI at [facility] Beatrice Ko Canceled [facility] (P-INCONVENIENT DATE Drive ONE MEDICAL OR TIME) [facility] [address] NEUROSURGERY [phone] [place] [address] Social History Tobacco Use Types Packs/Day Years [...] on filedocumented in this encounter Care Teams Traffic Police Officer Relationship Specialty Start Date End Date Oanh Yang, OPTICAL LABORATORY MANAGER PCP - General Family Medicine 09/17/17 Tricia ESTRADA [address] [place] [address] documented as of this encounter
--- OUTSIDE RECORDS SUMMARY | 2022-05-11 02:16 | XMS_ITS | Encounter Summary ---
:1985 Author Organization [facility] [place] [address] Care Team Providers Name Role Phone Oanh Yang Jessica DOUGHERTY Primary Care Provider Reason for Referral Diagnostic Test (Routine) - Closed Specialty Diagnoses / Procedures Referred By Contact Refer red To Contact Radiology Diagnoses Meningioma [facility] Neurosurgery [address] [place] [address] Rad Mri Procedures MRI Brain wwo Contrast (Generic) [place] [address] [place] [address] Phone: Referral ID Status Reason Start Date Expiration Date Visits V isits Requested Authorized [id number] Closed Specialty 12/30/2019 07/01/2021 1 1 Service Requested Reason for Visit Diagnostic Test (Routine) - Closed Specialty Diagnoses / Procedures Referred By Contact Refer red To Contact Radiology Diagnoses Meningioma [facility] Neurosurgery [address] [place] [address] Rad Mri Procedures MRI Brain wwo Contrast (Generic) [place] [address] [place] [address] Phone: Referral ID Status Reason Start Date Expiration Date Visits V isits Requested Authorized [id number] Closed Specialty 12/30/2019 07/01/2021 1 1 Service Requested Encounter Details Date Type Department Care Team Description 03/18/2020 Hospital Encounter MRI [place] [facility] Beatrice Ko MD Meningioma [facility] [place] [address] NEUROSURGERY [phone] [address] (Wo rk) Social History Tobacco Use [...] Diagnosis Comme nts MRI BRAIN WWO Routine 03/18/2020 9:59 AM Meningioma Results for this CONTRAST (GENERIC) EDT procedure are in the results section. documented in this encounter Results MRI Brain wwo Contrast (Generic) (03/18/2020 9:59 AM EDT) Anatomical Region Laterality Modality Head Magnetic Resonance Specimen (Source) Anatomical Location Collection Method / Collectio n Time Received Time / Laterality Volume Impressions 03/18/2020 11:21 AM EDT Stable appearance of presumed meningioma overlying the right posterior frontal lobe compared to exam dated 07/10/2019. No new brain parenchymal signal abnormal ities. No new mass or abnormal enhancement. Thank you for letting us participate in the care of this patient. For questions regarding this report, please contact e number below. ? Electronically signed by: Franco Contreras MD, [facility] ([phone]), at 03/18/2020 11:21 AM Narrative 03/18/2020 11:21 AM EDT EXAMINATION: MRI BRAIN WWO CONTRAST (GENERIC) CLINICAL HISTORY: Meningioma, monitor Follow-up right frontal meningioma TECHNIQUE: MRI of the brain was performed before an d after the intravenous administration of 18cc Dotarem. COMPARISON: 07/10/2019 07/17/2005 FINDINGS: No restricted diffusion. There is no hemoglobin degradation produ cts within the brain parenchyma on the susceptibility sequence. There is a extra-axial mass with broad d ural attachment overlying the right posterior frontal lobe with local mass e ffect on the adjacent brain. The mass is unchanged in size measuring approximatel y 14 mm x 16 mm. Is unchanged in size when measured in the same orientation. There is stable appearance of T2 hyperin tensities in periventricular white matter and in the left centrum semiovale image 17 series 5. No new brain parenchymal signal abnormalities. There is no new mass or abnormal enhance ment post gadolinium. Midline structures and central flow void s are unremarkable. Skull base soft tissues and orbits are u nremarkable. Procedure Note Franco Titus MD - 03/18/2020Formatt ing of this note might be different from the original. EXAMINATION: MRI BRAIN WWO CONTRAST (GEN RADHA) CLINICAL HISTORY: Meningioma, monitor Follow-up right frontal meningioma TECHNIQUE: MRI of the brain was performed before an d after the intravenous administration of 18cc Dotarem. COMPARISON: 07/10/2019 07/17/2005 FINDINGS: No restricted diffusion. There is no hemoglobin degradation produ cts within the brain parenchyma on the susceptibility sequence. There is a extra-axial mass with broad d ural attachment overlying the right posterior frontal lobe with local mass e ffect on the adjacent brain. The mass is unchanged in size measuring approximatel y 14 mm x 16 mm. Is unchanged in size when measured in the same orientation. There is stable appearance of T2 hyperin tensities in periventricular white matter and in the left centrum semiovale image 17 series 5. No new brain parenchymal signal abnormalities. There is no new mass or abnormal enhance ment post gadolinium. Midline structures and central flow void s are unremarkable. Skull base soft tissues and orbits are u nremarkable. IMPRESSION Stable appearance of presumed meningioma overlying the right posterior frontal lobe compared to exam dated 07/10/2019. No new brain parenchymal signal abnormal ities. No new mass or abnormal enhancement. Thank you for letting us participate in the care of this patient. For questions regarding this report, please contact e number below. Electronically signed by: Franco Contreras MD, [facility] ([phone]), at 03/18/2020 11:21 AM Beatrice Ko MD IMG MRI ORDERABLES documented in this encounter Visit Diagnoses Diagnosis Meningioma Benign neoplasm of cerebral meninges documented in this encounter Administered Medications Inactive Administered Medications - up to 3 most recent administrations Medication Order MAR Action Action Date Dose Rate Site gadoterate meglumine (DOTAREM) 0.5 Given 03/18/2020 9:45 AM EDT 18 mLs mmol/mL (376.9 mg/mL) injection 0.2 mL/kg/dose 0.2 mL/kg/dose, Intravenous, ONCE PRN, 1 dose, Starting on Sat03/18/20 at 0928, Until Sat03/18/20 at 0945, Per Protocol, Radiology Contrast, Routine documented in this encounter Care Teams Health Service Coordinator Relationship Specialty Start Date End Date Oanh Yang, CUT OUT MARKER PCP - General Family Medicine 09/17/17 Tricia ESTRADA [address] [place] [address] documented as of this encounter
--- OUTSIDE RECORDS SUMMARY | 2022-05-11 02:16 | XMS_ITS | Encounter Summary ---
:1985 Author Organization [facility] [place] [address] Care Team Providers Name Role Phone Oanh Yang APRN Primary Care Provider Encounter Details Date Type Department Care Team Description 03/18/2020 TH Visit Neurosurgery at [facility] Beatrice Ko, Jeff (Primary (TeleHealth) [facility]) [place] [address] [place] [address] NEUROSURGERY [place], [place] [address] Social History Tobacco Use Types Packs/Day Years Used Date Former Smoker Quit: 10/28/19 14 Smokeless Tobacco: Never Used Comments: marijuana (few times at day) Alcohol Use Standard Drinks/Week Comments Not Currently 0 (1 standard drink = 0.6 oz pure alcoho l) Sex Assigned at Date Recorded Not on file documented as of this encounter Progress Notes Beatrice Ko MD - 03/18/2020 11:00 AM EDT It was a pleasure to speak with Chele Kerr in follow-up today. Mr. Kerr is a 34 y.o. gentleman whom I am following for a right frontal meningioma s/p WBRT in childhood for T-cell ALL. Today, I am calling with the results of his repeat MRI brain w/wo contrast. This demonstrates that since last June, there has been no interval change in the tumor. Chele also reports that he has been stable with no new seizure, headaches, or other neurologic complaints. I would like to see Chele in 1 year with a repeat MRI (ordered). He agrees to this plan. Patient verbally consents to this telephone visit and understands that this visit may be billed, similar to a clinic office visit. I provided care to the patient today via telephone call. The total time associated with this visit was 15 minutes. documented in this encounter Plan of Treatment Not on filedocumented as of this encounter Visit Diagnoses Diagnosis Meningioma - Primary Benign neoplasm of cerebral meninges documented in this encounter Care Teams Barrel Drum Cutter Relationship Specialty Start Date End Date Oanh Yang, MEDIA SENIOR RECRUITER PCP - General Family Medicine 09/17/17 Tricia ESTRADA [address] [place] [address] documented as of this encounter
--- OUTSIDE RECORDS SUMMARY | 2022-05-11 02:16 | XMS_ITS | Encounter Summary ---
:1985 Author Organization [facility] [place] [address] Care Team Providers Name Role Phone Oanh Yang OPHTHALMIC PHOTOGRAPHER Primary Care Provider Encounter Details Date Type Department Care Team Description 01/28/2020 TH Visit Neurosurgery at [facility] Beatrice Ko MD Meningioma (TeleHealth) [place] [address] NEUROSURGERY [place] [address] (Wo rk) Social History Tobacco Use Types Packs/Day Years Used Date Former Smoker Quit: 10/28/19 14 Smokeless Tobacco: Never Used Comments: marijuana (few times at day) Alcohol Use Standard Drinks/Week Comments Not Currently 0 (1 standard drink = 0.6 oz pure alcoho l) Sex Assigned at Date Recorded Not on file documented as of this encounter Progress Notes Beatrice Ko MD - 01/28/2020 10:40 AM EDT It was a pleasure to speak to Chele Kerr today in follow-up. Mr. Kerr is a 34 y.o. gentleman whom I am following for a right frontal meningioma s/p WBRT in childhood for T-cell ALL. At our initial visit, Mr. Kerr was asymptomatic and we made a plan to follow this meningioma with serial MRI to assess for growth or malignant transformation. Unfortunately, Mr. Kerr did not yet undergo his planned repeat MRI brain. He reports that he has been feeling well, and that he has no new complaints. We will reschedule his clinic visit with coordinated MRI in February. Patient verbally consents to this telephone visit and understands that this visit may be billed, similar to a clinic office visit. I provided care to the patient today via telephone call, 10 minutes telephone visit was spent in discussion with patient on above. documented in this encounter Plan of Treatment Not on filedocumented as of this encounter Visit Diagnoses Diagnosis Meningioma Benign neoplasm of cerebral meninges documented in this encounter Care Teams Elevator Service Technician Relationship Specialty Start Date End Date Oanh Yang, OPHTHALMIC PHOTOGRAPHER PCP - General Family Medicine 09/17/17 Tricia ESTRADA [address] [place] [address] documented as of this encounter
--- OUTSIDE RECORDS SUMMARY | 2022-05-11 02:16 | XMS_ITS | Encounter Summary ---
:1985 Author Organization [facility] [place] [address] Care Team Providers Name Role Phone Oanh Yang FARHAT Primary Care Provider Reason for Referral Diagnostic Test (Routine) - Closed Specialty Diagnoses / Procedures Referred By Contact Refer red To Contact Radiology Diagnoses Meningioma [facility] Neurosurgery 3c [facility] Rad Mri Procedures MRI Brain wwo Contrast (Generic) [place] [address] [place] [address] Phone: Referral ID Status Reason Start Date Expiration Date Visits V isits Requested Authorized [id number] Closed Specialty 12/30/2019 07/01/2021 1 1 Service Requested Encounter Details Date Type Department Care Team Description 12/30/2019 Orders Only Neurosurgery at [facility] [place] [place] [address] Social History Tobacco Use Types Packs/Day Years Used Date Former Smoker Quit: 10/28/19 14 Smokeless Tobacco: Never Used Comments: marijuana (few times at day) Alcohol Use Standard Drinks/Week Comments Not Currently 0 (1 standard drink = 0.6 oz pure alcoho l) Sex Assigned at Date Recorded Not on file documented as of this encounter Plan of Treatment Not on filedocumented as of this encounter Results MRI Brain wwo Contrast [...] ? Electronically signed by: Franco Contreras MD, [facility] ([phone]), at 03/18/2020 11:21 AM Narrative 03/18/2020 11:21 [...] below. Electronically signed by: Franco Contreras MD, [facility] ([phone]), at 03/18/2020 11:21 AM Beatrice Ko MD IM MRI ORDERABLES documented in this encounter Visit Diagnoses Diagnosis Meningioma Benign neoplasm of cerebral meninges Meningioma Benign neoplasm of cerebral meninges documented in this encounter Care Teams Gang Saw Operator Relationship Specialty Start Date End Date Oanh Yang, DISPLAY COORDINATOR PCP - General Family Medicine 09/17/17 Tricia [address] [place] [address] documented as of this encounter
--- OUTSIDE RECORDS SUMMARY | 2022-05-11 02:16 | XMS_ITS | Encounter Summary ---
:1985 Author Organization [facility] [place] [address] Care Team Providers Name Role Phone Oanh Yang FARHAT Primary Care Provider Reason for Visit Diagnostic Test (Routine) - Closed Specialty Diagnoses / Procedures Referred By Contact Refer red To Contact Radiology Diagnoses Meningioma Taco Chaudhary MD [facility] Rad Mri Procedures MRI Brain wwo Contrast (Generic) [facility] HEMATOLOGY/ON[place]Y [place] [address] [place] [address] Referral ID Status Reason Start Date Expiration Date Visits V isits Requested Authorized [id number] Closed Specialty 06/15/2019 06/14/2020 1 1 Service Requested Encounter Details Date Type Department Care Team Description 07/10/2019 Hospital Encounter [place] [facility] [place]aco Chaudhary [facility] MD Franco [facility] [address] [place] HEMATOLOGY/ONCOLOGY [id number] DEPT. [phone] [place], [place] [address] (Wo rk) Social History Tobacco [...] the results section. documented in this encounter Visit Diagnoses Not on filedocumented in this encounter Administered Medications Inactive Administered Medications - up to 3 most recent administrations Medication Order MAR Action Action Date Dose Rate Site gadoterate meglumine (DOTAREM) Given 07/10/2019 11:08 AM EDT 20 mLs 0.5 mmol/mL (376.9 mg/mL) injection 0-100 mL 0-100 mL, Intravenous, ONCE PRN, 1 dose, Starting on Sat07/10/19 at 1041, Until Sat07/10/19 at 1108, Per Protocol, Radiology Contrast, Routine documented in this encounter Care Teams Folder Seamer Relationship Specialty Start Date End Date Oanh Yang APRN PCP - General Family Medicine 09/17/17 Tricia [address] [place] [address] documented as of this encounter
--- OUTSIDE RECORDS SUMMARY | 2022-05-11 02:16 | XMS_ITS | Encounter Summary ---
:1985 Author Organization [place] [address] Care Team Providers Name Role Phone Oanh Yang Jessica DOUGHERTY Primary Care Provider Encounter Details Date Type Department Care Team Description 07/14/2019 Telephone Neurosurgery at [facility] [place] [address] Social History Tobacco Use Types Packs/Day Years Used Date Former Smoker Quit: 10/28/19 14 Smokeless Tobacco: Never Used Comments: marijuana (few times at day) Alcohol Use Standard Drinks/Week Comments Not Currently 0 (1 standard drink = 0.6 oz pure alcoho l) Sex Assigned at Date Recorded Not on file documented as of this encounter Miscellaneous Notes Telephone Encounter - Beatrcie Castro - 09/03/2019 11:46 AM EST Called pt to schedule f/u = NANM 2X Letter sent Closing encounter Telephone Encounter - Beatrice Castro - 08/18/2019 11:26 AM EDT schedule template released for 2019 Called pt to schedule f/u = NANM 2X Postpone 2w Telephone Encounter - Lawanda Mckee - 07/16/2019 1:12 PM EDT December 2019 schedule for not available as of 07/16/19. Telephone Encounter - Loida Banks - 07/14/2019 11:40 AM EDT Patient needs f/u appointment(s): With on/around 12/2019 6 months OV, s/p Right frontal meningioma, MRI prior Telephone Encounter - Loida Banks - 07/14/2019 11:40 AM EDT ----- Message from Beatrice Ko MD sent at 07/10/2019 5:14 PM EDT ----- Follow-up in 6 months with repeat MRI brain. Thank you, Nae documented in this encounter Plan of Treatment Not on filedocumented as of this encounter Visit Diagnoses Not on filedocumented in this encounter Care Teams Corporate Communications Associate Relationship Specialty Start Date End Date Oanh Yang APRN PCP - General Family Medicine 09/17/17 Tricia [address] [place] [address] documented as of this encounter
--- OUTSIDE RECORDS SUMMARY | 2022-05-11 02:17 | XMS_ITS | Encounter Summary ---
:1985 Author Organization [facility] Address [facility] [place] [address] Care Team Providers Name Role Phone Lesia Paiz MD Primary Care Provider Reason for Visit Reason Comments Eye Exam CEE Encounter Details Date Type Department Care Team Description 06/28/2016 Office Visit Ophthal[place] [facility] Jamia Perry Exotropia, right eye; [facility] J, OD Optic atrophy; Drive [facility] (posterior subcapsular c ataract), right; [place] [address] CENTER Hyperopia of left eye with astigmatism [phone] OPHTHALMOLOGY DEPT. [place], [place] [address] Social History Tobacco Use Types Packs/Day Years Used Date Current Every Day Smoker 0.5 Alcohol Use Standard Drinks/Week Comments Yes 0 (1 standard drink = 0.6 oz pure alcoho l) very occ Alcohol Habits Answer Date Recorded How often do you have a drink containing alcohol? Not asked How many drinks containing alcohol do you have on a typical Not asked day when you are drinking? How often do you have six or more drinks on one occasion? No t asked Comment: very occ 02/13/2012 Sex Assigned at Date Recorded Not on file documented as of this encounter Progress Notes Jamia Perry J, OD - 06/28/2016 2:00 PM EDT Chele BLAIR is a 30 y.o. male who had concerns including Eye Exam. 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 Mild Rx. Needs to wear for protection. Assessment: Encounter Diagnoses Name Primary? Exotropia, right eye ??? Optic atrophy ??? PSC (posterior subcapsular cataract), right ??? Hyperopia of left eye with astigmatism Plan: 1)Refractive Error - MRx given to patient. 2)monitor Follow up: CEE 2 years. Eyeglass Final Rx Eyeglass Final Rx Sphere Cylinder [place] Right Balance Left [place] +0.75 170 Expiration Date: 06/29/2018 documented in this encounter Plan of Treatment Not on filedocumented as of this encounter Visit Diagnoses Diagnosis Exotropia, right eye Exotropia, unspecified Optic atrophy Optic atrophy, unspecified PSC (posterior subcapsular cataract), ri ght Unspecified cataract Hyperopia of left eye with astigmatism documented in this encounter Care Teams Dental Ceramist Relationship Specialty Start Date End Date Lesia Paiz MD PCP - General 09/19/10 09/16/17 [facility] [place] [address] documented as of this encounter
--- OUTSIDE RECORDS SUMMARY | 2022-05-11 02:17 | XMS_ITS | Encounter Summary ---
:1985 Author Organization [facility] [place] [address] Care Team Providers Name Role Phone Oanh Yang FARHAT Primary Care Provider Encounter Details Date Type Department Care Team Description 07/11/2018 Hospital Encounter Hematology and Leukemi a, acute lymphoid, in remission; [place] [facility] [place] [address] Social History Tobacco Use Types Packs/Day Years Used Date Current Every Day Smoker Smokeless Tobacco: Never Used Comments: marijuana (few times at day) Alcohol Use Standard Drinks/Week Comments Yes 0 [...] Sig Dispensed Refills Start Date End Date UNABLE TO FINDIndications: Leukemia, CBD oil 0 acute lymphoid, in remission, Fatigue, unspecified type UNABLE TO FINDIndications: Leukemia, Marijuana 0 acute lymphoid, in remission, Fatigue, unspecified type documented as of this encounter Plan of Treatment Not on filedocumented as of this encounter Procedures Procedure Name Priority Date/Time Associated Comments Diagnosis HEMOGRAM Routine 07/11/2018 2:01 PM Leukemia, acute Result s for this EDT lymphoid, in procedure are i n remission the results Fatigue, section. unspecified type DIFFERENTIAL, Routine 07/11/2018 2:01 PM Leukemia, acute Resul ts for this AUTOMATED EDT lymphoid, in procedure are i n remission the results Fatigue, section. unspecified type CBC (WITH DIFF) Routine 07/11/2018 2:01 PM Leukemia, acute EDT lymphoid, in remission Fatigue, unspecified type TSH Routine 07/11/2018 2:01 PM Leukemia, acute Result s for this EDT lymphoid, in procedure are i n remission the results Fatigue, section. unspecified type COMPREHENSIVE Routine 07/11/2018 2:01 PM Leukemia, acute Resul ts for this METABOLIC PANEL EDT lymphoid, in procedure ar e in (NON-FASTING) remission the results Fatigue, section. unspecified type documented in this encounter Results (ABNORMAL) Differential, Automated (07/11/2018 2:01 PM EDT) [facility] gist Method Time Signature Neutrophils % 37.2 % [facility] Neutr Abs (ANC) 3.18 1.70 - [facility] 6.10 [facility] x10(3)/[facility] LABORATORY Lymphocytes % 40.3 % [facility] Lymphocytes Abs 3.4 (H) 0.9 - 3.2 [facility] x10(3)/[facility] LABORATORY Monocytes % 11.4 % [facility] Monocyte Abs 1.0 (H) 0.3 - 0.9 [facility] x10(3)/[facility] LABORATORY Eosinophils % 9.7 % [facility] Eosinophils Abs 0.8 (H) 0.0 - 0.4 [facility] x10(3)/[facility] LABORATORY Basophils % 1.3 % [facility] Basophils Abs 0.1 0.0 - 0.1 [facility] x10(3)/[facility] LABORATORY Immature Gran % 0.10 % [facility] Comment: Immature granulocytes(IG's)percentage an d absolute count will include metamyelocytes, myelocytes, and promyelo cytes. Blood smears from CBCs yielding IG's will be scanned manually for concor dance. If this scan disagrees with the automated IG or if promyelocytes are not ed, a manual differential will be performed. [place] Gran Abs 0.01 0.00 - 0.04 x10(3)/[facility]OR[facility] Specimen Anatomical Collection Method Collection Time Receive d Time (Source) Location / / Volume Laterality Blood specimen 07/11/2018 2:01 PM 018 2:30 (specimen) EDT PM EDT Resulting Agency Comment Spec In Lab Taco Chaudhary MD HEMATOLOGY ORDERABLES Performing Organization Address City/State/[place] [address] (ABNORMAL) Hemogram (07/11/2018 2:01 PM EDT) P athologist Signature WBC 8.5 4.0 - 9.5 [facility] x10(3)/[facility] LABORATORY RBC 4.67 4.58 - [facility] 5.54 [facility] x10(6)/[facility] LABORATORY Hemoglobin 14.0 13.7 - [facility] 16.5 gm/dL [facility] Hematocrit 41.2 40.5 - [facility] 48.5 % [facility] MCV 88.2 82.9 - [facility] 93.1 [facility] LABORATORY MCH 30.0 27.5 - [facility] 32.1 pg [facility] MCHC 34.0 32.0 - [facility] 35.7 gm/dL [facility] Platelets 373 (H) 145 - 357 [facility] x10(3)/[facility] LABORATORY RDWSD 39.4 36.0 - [facility] CHERI 45.0 [facility] LABORATORY RDWCV 12.1 11.4 - [facility] CHERI 13.8 % [facility] MPV 9.8 7.6 - 12.9 [facility] LABORATORY nRBC % Auto 0.0 % [facility] nRBC Abs Auto 0.000 0.000 - [facility] 0.000 [facility] x10(3)/[facility] LABORATORY Specimen Anatomical Collection Method Collection Time Receive d Time (Source) Location / / Volume Laterality Blood specimen 07/11/2018 2:01 PM 018 2:30 (specimen) EDT PM EDT Resulting Agency Comment Spec In Lab Taco Chaudhary MD HEMATOLOGY ORDERABLES Performing Organization Address City/State/ZIP Code Phon e Number [address] TSH (07/11/2018 2:01 PM EDT) athologist Signature TSH 2.11 0.27 - 4.20 [facility] mlU/ML [facility] Specimen Anatomical Collection Method Collection Time Receive d Time (Source) Location / / Volume Laterality Blood specimen 07/11/2018 2:01 PM 018 2:30 (specimen) EDT PM EDT Resulting Agency Comment Spec In Lab Taco Chaudhary MD CHEMISTRY ORDERABLES Performing Organization Address City/[facility]/ZIP Code Phon e Number [address] Comprehensive metabolic panel (non-fasting) (07/11/2018 2:01 PM EDT) [facility] Glucose Lvl 86 65 - 199 [facility] mg/dL [facility] Comment: Diabetes: >=200 mg/dL plus symp toms BUN 13 10 - 20 mg/dL [facility] Creatinine 1.08 0.80 - 1.50 mg/dL [facility] Sodium 140 135 - 145 mmol/L [facility] Potassium 3.8 3.5 - 5.0 mmol/L [facility] Comment: Please note: ??Patients with WBC >100,00 0 may have falsely elevated Potassium levels. ??For accurate Potassium quantif ication in these patients send serum separator tube (gold top) for subsequent determinations. ??Contact the Clinical Chemistry Laboratory if there are any qu estions. Chloride 100 98 - 107 mmol/L [facility] CO2 28 22 - 31 mmol/L [facility] Anion Gap 12 5 - 15 mmol/L [facility] Calcium 9.3 8.5 - 10.5 mg/dL [facility] Total Protein 7.3 6.1 - 8.0 gm/dL [facility] Albumin 4.4 3.2 - 5.2 gm/dL [facility] AST 25 0 - 39 unit/L [facility] ALT 45 0 - 55 unit/L [facility] Alk Phos 81 40 - 120 unit/L [facility] Total Bilirubin 0.2 0.2 - 1.3 mg/dL [facility] Estimated GFR 91 >=60 mL/min/1.73 m?? [facility] Comment: The eGFR was calculated using the CKD-EP I equation. As with all creatinine based estimates of kidney function, eGFR values calculated with the CKD-EPI equation are not accurate in patients wi th acute kidney failure, extremes of body mass or the acutely ill. [email or web address] eGFR 105 >=60 mL/min/1.73 m?? [facility] Comment: The eGFR was calculated using the CKD-EP I equation. As with all creatinine based estimates of kidney function, eGFR values calculated with the CKD-EPI equation are not accurate in patients wi th acute kidney failure, extremes of body mass or the acutely ill. [email or web address] Specimen Anatomical Collection Method Collection Time Receive d Time (Source) Location / / Volume Laterality Blood specimen 07/11/2018 2:01 PM 018 2:30 (specimen) EDT PM EDT Resulting Agency Comment Spec In Lab Taco Chaudhary MD CHEMISTRY ORDERABLES Performing Organization Address City/State/[place] [address] documented in this encounter Visit Diagnoses Diagnosis Leukemia, acute lymphoid, in remission Acute lymphoid leukemia in remission Fatigue, unspecified type documented in this encounter Care Teams Solar Field Installation Crew Member Relationship Specialty Start Date End Date Oanh Yang APRN PCP - General Family Medicine 09/17/17 Tricia [address] [place] [address] documented as of this encounter
--- OUTSIDE RECORDS SUMMARY | 2022-05-11 02:17 | XMS_ITS | Encounter Summary ---
:1985 [place] [address] Care Team Providers Name Role Phone Lesia Paiz MD Primary Care Provider Encounter Details Date Type Department Care Team Description 03/05/2012 Hospital Encounter Non-Invasive CARDIO, ECHO SIXTY MIN APPT None Leukemia in Cardiology Lab Cassidy Acevedo MD [facility] [id number] [place] [address] Social History Tobacco Use Types Packs/Day Years [...] Sig Dispensed Refills Start Date End Date methylphenidate (METADATE Take 40 mg by 0 06/28/2016 ER) 20 mg ER tablet mouth every morning. documented as of this encounter Plan of Treatment Not on filedocumented as of this encounter Procedures Procedure Name Priority Date/Time Associated Comments Diagnosis ECHOCARDIOGRAM Routine 03/05/2012 11:58 Leukemia in Results f or this TRANSTHORACIC AM EDT remission procedure are in the results section. documented in this encounter Results Echo Transthoracic (Complete) (03/05/2012 11:58 AM EDT) P athologist Signature EF 60 DiJiPOP SYSTEM Specimen (Source) Anatomical Location Collection Method / Collectio n Time Received Time / Laterality Volume 03/05/2012 Narrative HEARTLAB SYSTEM - 03/05/2012 12:25 PM ED T Procedure: ? Transthoracic Echocardiogram Patient: ? NIHARIKA Gill ? (Age): 1985(26) Med Rec#: ?[id number] ? Sex: ?M ? [place] [place] Ht / Wt: ??170(cm)/89(kg) Pt. Loc: ? Echo Lab ? BSA: ?2.05 Study Date: ?03/05/2012 ? Pt. Type: Outpatient Tape: ? Referring: Cassidy Romano Hospitalist Nocturnist Physician: Georgie Mckeon Diagnosis:CPT Code(s): ??Echo Full (9330 7), ??Spectral Doppler (02043), Color Doppler (95343), Indication(s): ??Chemotherapy-F/U Rhythm: HR ?BP ?118/55 ?? SUMMARY: 1. Left ventricular chamber size, wall t hickness, global and segmental systolic function are within normal limi ts. Ejection fraction is estimated to be 60%. 2. Right ventricular chamber size, wall thickness, and systolic function are within normal limits. 3. The cardiac valves appear structurall y and functionally normal. 4. Technically limited FINDINGS: Study Quality ?Technically limited Left Ventricle ?Left ventricular chamber size, wal l thickness, global and segmental systolic function are within normal limi ts. Ejection fraction is estimated to be 60%. ?There are no left ventricular segm ental wall motion abnormalities. ?Doppler assessment is consistent w ith normal left sided filling pressure. Left Atrium ?The left atrium is normal in size. Right Ventricle ?Right ventricular chamber size, wa ll thickness, and systolic function are within normal limits. ?Pulmonary artery hypertension coul d not be assessed due to inadequate tricuspid regurgitation jet. Right Atrium ?The right atrium is normal in size . Aortic Valve ?The aortic valve is probably tricu spid. ?There is no evidence of aortic juanita ve thickening. ?There is no evidence of aortic juanita ve stenosis. ?There is no evidence of aortic reg urgitation. Mitral Valve ?The mitral valve appears normal in structure and function. ?There is trace mitral regurgitatio n present. Tricuspid Valve ?The tricuspid valve is probably no rmal. ?There is trace tricuspid regurgita tion present. Pulmonic Valve ?The pulmonic valve appears normal in structure and function. Pericardium ?The pericardium appears normal and there is no evidence of a pericardial effusion. Aorta ?The aortic root is normal in size. ?The ascending aorta is normal in s ize. Pulmonary Artery ?The main pulmonary artery appears normal. Venous ?The inferior vena cava appears nor mal in size. ?There is a greater than 50% respir atory change in the inferior vena cava dimension. Misc ?The cardiac valves appear structur ally and functionally normal. ?See remainder of report for additi onal findings. ?Two-dimensional echo, spectral Dop pler and color Doppler performed. Wall Motion: Segment Name ?Rest ? Base-Anteroseptal ?? Normal ? Base-Anterior ? Normal ? Base-Anterolateral ??Normal ? Base-Posterolateral Normal ? Base-Inferior ? Normal ? Base-Inferoseptal ?? Normal ? Mid-Anteroseptal ?Normal ? Mid-Anterior ?Normal ? Mid-Anterolateral ?? Normal ? Mid-Posterolateral ??Normal ? Mid-Inferior ?Normal ? Mid-Inferoseptal ?Normal ? [place]-Septal ? Normal ? [place]-Anterior ? Normal ? [place]-Lateral ?Normal ? [place]-Inferior ? Normal ? [place]-Tip ?Normal ? Chambers ?Value ?Units (Range) ? LV EF Est ? 60 ? % (55 to 80) ? IVSd 2D ? 0.6 ?cm ? LVIDd 2D ?4.8 ?cm ? PWd 2D ?0.9 ?cm ? LVIDs 2D ?2.7 ?cm ? LVFS 2D ? 44 ? % ? LA area ? 17 ? cm2 (<21) ? RA area ? 14 ? cm2 (<18) ? Ao root ? 2.8 ?cm (2.1 to 3.6) ? Asc Ao ?2.6 ?cm (2 to 3.5) ? Mitral Valve ?Value ?Units (Range) ? E peak ?0.77 ? m/sec ? E/A ratio ? 1.6 ?ratio ? MVDT ?253 ?msec ? E1 ?0.16 ? m/sec ? E/E1 ?4.8 ?ratio ? Tricuspid/Pulmonic Valves ?Value ?Units (Range) ? RAP ? 3 ?mmHg ? This report has been electronically sign ed by: _ Cheikh Shields MD ? 03/05/2012 12 :25:11 Images reviewed and interpretation keyanna ied [facility] Cardiac Ultrasound Laboratory Procedure Note Cheikh Shields MD - 03/05/2012Formatt ing of this note might be different from the original. Procedure: Transthoracic Echocardiogram Patient: NIHARIKA JEFFERSON(Age): 1984(26) Med Rec#: [id number] Sex: M [place] [facility] [place]t / Wt: 170(cm)/89(kg) Pt. Loc: Echo Lab BSA: 2.05 Study Date: 03/05/2012 Pt. Type: Outpati ent Tape: Referring: Cassidy Romano Hospitalist Nocturnist Physician: Georgie Mckeon Diagnosis:CPT Code(s): Echo Full (35044) , Spectral Doppler (65368), Color Doppler (67083), Indication(s): Chemotherapy-F/U Rhythm: HR BP 118/55 SUMMARY: 1. Left ventricular chamber size, wall t hickness, global and segmental systolic function are within normal limi ts. Ejection fraction is estimated to be 60%. 2. Right ventricular chamber size, wall thickness, and systolic function are within normal limits. 3. The cardiac valves appear structurall y and functionally normal. 4. Technically limited FINDINGS: Study Quality Technically limited Left Ventricle Left ventricular chamber size, wall thi ckness, global and segmental systolic function are within normal limi ts. Ejection fraction is estimated to be 60%. There are no left ventricular segmental wall motion abnormalities. Doppler assessment is consistent with n ormal left sided filling pressure. Left Atrium The left atrium is normal in size. Right Ventricle Right ventricular chamber size, wall th ickness, and systolic function are within normal limits. Pulmonary artery hypertension could not be assessed due to inadequate tricuspid regurgitation jet. Right Atrium The right atrium is normal in size. Aortic Valve The aortic valve is probably tricuspid. There is no evidence of aortic valve th ickening. There is no evidence of aortic valve st enosis. There is no evidence of aortic regurgit ation. Mitral Valve The mitral valve appears normal in stru cture and function. There is trace mitral regurgitation pre sent. Tricuspid Valve The tricuspid valve is probably normal. There is trace tricuspid regurgitation present. Pulmonic Valve The pulmonic valve appears normal in st ructure and function. Pericardium The pericardium appears normal and ther e is no evidence of a pericardial effusion. Aorta The aortic root is normal in size. The ascending aorta is normal in size. Pulmonary Artery The main pulmonary artery appears ene l. Venous The inferior vena cava appears normal i n size. There is a greater than 50% respiratory change in the inferior vena cava dimension. Misc The cardiac valves appear structurally and functionally normal. See remainder of report for additional findings. Two-dimensional echo, spectral Doppler and color Doppler performed. Wall Motion: Segment Name Rest Base-Anteroseptal Normal Base-Anterior Normal Base-Anterolateral Normal Base-Posterolateral Normal Base-Inferior Normal Base-Inferoseptal Normal Mid-Anteroseptal Normal Mid-Anterior Normal Mid-Anterolateral Normal Mid-Posterolateral Normal Mid-Inferior Normal Mid-Inferoseptal Normal [place]-Septal Normal [place]-Anterior Normal [place]-Lateral Normal [place]-Inferior Normal [place]-Tip Normal Chambers Value Units (Range) LV EF Est 60 % (55 to 80) IVSd 2D 0.6 cm LVIDd 2D 4.8 cm PWd 2D 0.9 cm LVIDs 2D 2.7 cm LVFS 2D 44 % LA area 17 cm2 (<21) RA area 14 cm2 (<18) Ao root 2.8 cm (2.1 to 3.6) Asc Ao 2.6 cm (2 to 3.5) Mitral Valve Value Units (Range) E peak 0.77 m/sec E/A ratio 1.6 ratio MVDT 253 msec E1 0.16 m/sec E/E1 4.8 ratio Tricuspid/Pulmonic Valves Value Units (Range) RAP 3 mmHg This report has been electronically sign ed by: _ Cheikh Shields MD 03/05/2012 12:25:11 Images reviewed and interpretation verelana ied [facility] Cardiac Ultrasound Laboratory Cassidy Romano MD ECHO ORDERABLES Performing Organization Address City/State/ZIP Code Phon e Number HEARTLAB SYSTEM documented in this encounter Visit Diagnoses Diagnosis Leukemia in remission Unspecified leukemia in remission documented in this encounter Care Teams Freezer Person Relationship Specialty Start Date End Date Lesia Paiz MD PCP - General 09/19/10 09/16/17 [facility] [place] [address] documented as of this encounter
--- OUTSIDE RECORDS SUMMARY | 2022-05-11 02:17 | XMS_ITS | Encounter Summary ---
:1985 Author Organization [facility] [place] [address] Care Team Providers Name Role Phone Lesia Paiz MD Primary Care Provider Encounter Details Date Type Department Care Team Description 01/23/2012 Orders Only Pediatric Oncology at [facility] ukemia in remission [facility] [place] [facility] [place] [address] PEDIATRICS [phone] [place], [place] [address] Social History Tobacco Use Types Packs/Day Years Used Date Never Assessed Sex Assigned at Date Recorded Not on file documented as of this encounter Plan of Treatment Not on filedocumented as of this encounter Results Echo Transthoracic (Complete) (03/05/2012 11:58 AM EDT) P athologist Signature EF 60 HEARTLAB SYSTEM Specimen (Source) Anatomical Location Collection Method / Collectio n Time Received Time / Laterality Volume 03/05/2012 Narrative HEARTLAB SYSTEM - 03/05/2012 12:25 PM ED T Procedure: ? Transthoracic Echocardiogram Patient: ? NIHARIKA Gill ? (Age): 1985(26) Med Rec#: ?[id number] ? Sex: ?M ? [place] [place] Ht / Wt: ??170(cm)/89(kg) Pt. Loc: ? Echo Lab ? BSA: ?2.05 Study Date: ?03/05/2012 ? Pt. Type: Outpatient Tape: ? Referring: Cassidy Romano Features Reporter: Georgie Mckeon Diagnosis:CPT Code(s): ??Echo Full (9330 7), ??Spectral Doppler (56720), Color Doppler (47303), Indication(s): ??Chemotherapy-F/U Rhythm: HR ?BP ?118/55 ?? [...] ? Mid-Inferior ?Normal ? Mid-Inferoseptal ?Normal ? [place]-Septal ? Normal ? [place]-Anterior ? Normal ? [place]-Lateral ?Normal ? [place]-Inferior ? Normal ? [place]-Tip ?Normal ? Chambers ?Value ?Units (Range) ? [...] 03/05/2012 12 :25:11 Images reviewed and interpretation verif ied [facility] Cardiac Ultrasound Laboratory Procedure Note Cheikh Shields MD - 03/05/2012Formatt ing of this note might be different from the original. Procedure: Transthoracic Echocardiogram Patient: NIHARIKA JEFFERSON(Age): 1984(26) Med Rec#: [id number] Sex: M [place] Loc: [facility] [place] Ht / Wt: 170(cm)/89(kg) Pt. Loc: Echo Lab BSA: 2.05 Study Date: 03/05/2012 Pt. Type: Outpati ent Tape: Referring: Cassidy Romano Features Reporter: Georgie Mckeon Diagnosis:CPT Code(s): Echo Full (08538) , Spectral Doppler (86195), Color Doppler (05913), Indication(s): Chemotherapy-F/U Rhythm: HR BP 118/55 SUMMARY: [...] Normal Mid-Posterolateral Normal Mid-Inferior Normal Mid-Inferoseptal Normal [place]-Septal Normal [place]-Anterior Normal [place]-Lateral Normal [place]-Inferior Normal [place]-Tip Normal Chambers Value Units (Range) LV EF [...] MD 03/05/2012 12:25:11 Images reviewed and interpretation verif ied [facility] Cardiac Ultrasound Laboratory Cassidy Romano MD ECHO ORDERABLES Performing Organization Address City/State/ZIP Code Phon e Number HEARTLAB SYSTEM documented in this encounter Visit Diagnoses Diagnosis 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
--- OUTSIDE RECORDS SUMMARY | 2022-05-11 02:17 | XMS_ITS | Encounter Summary ---
:1985 Author Organization [facility] [place] [address] Care Team Providers Name Role Phone Lesia Paiz MD Primary Care Provider Reason for Visit Reason Comments Follow-up [facility] follow-up for hist ory of T cell ALL Encounter Details Date Type Department Care Team Description 03/05/2012 Follow-Up Pediatric Oncology at Ollie Biggs MD History of lymphoid leukemia, acute (Latasha art Dx); [facility] Leukemia, acute lymphoid, in remission; [facility] DR Neurocognitive deficits [facility] [place], [place] HEMATOLOGY/ONCOLOG [id number] Y [phone] [place], [place] [address] Social History Tobacco Use Types [...] Sign Reading Time Taken Comments Blood Pressure 132/68 03/05/2012 1:12 PM EDT Pulse 82 03/05/2012 1:12 PM EDT Temperature 36.6 ??C (97.9 ??F) 03/05/2012 1:12 PM EDT Respiratory Rate 18 03/05/2012 1:12 PM EDT Oxygen Saturation - - Inhaled Oxygen Concentration - - Weight 92.6 kg (204 lb 2.3 oz) 03/05/2012 1:12 PM EDT Height 169.1 cm (5' 6.58) 03/05/2012 1:12 PM EDT Body Mass Index 32.38 03/05/2012 1:12 PM EDT documented in this encounter Progress Notes Maile Biggs MD - 04/10/2012 12:00 PM EDT Pediatric Oncology Long-Term Follow-Up Clinic Encounter date: 03/05/2012 Subjective/Events: Chele is a 26 year old young man who is being seen in 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 He is accompanied by his father and his father's girlfriend. Chele was last seen in this clinic ion 04/22/2009. Pj's mother had been planning to accompany him but had a family emergency. Pj was uncomfortable coming alone so his father came. It is not clear that his father was happy to do this. Pj is now almost 16 years post completion of therapy for his leukemia. At this time it appears thathe has one major rat exterminator effect of his treatment which is significant neurocognitive deficits of which the most disabling is his poor executive function. He had been started on Concerta prior to the 2008 visit. He is currently on methylphenidate. Pj reports that this has helped him focus better. Hereports that use of marijuana improves his focus better than the methylphenidate. His reason for coming today was to request medical marijuana. He thought that this had to be prescribed by his oncologist. I suggested to him that it would be best prescribed by the person who is managing his methylphenid ate and he sees regularly and not by an individual whom he sees very intermittently and may choose not to see again. Pj reports that other than his neurocognitive issues he has had no significant intercurrent medicalevents. He denies HAs, change in vision, skin lesions, DONOHUE, SOB, unusual heart rates, pain, bruising, bleeding, change in balance, change in coordination. Pj is currently living with his father. Pj has a girlfriend of some standing. He has difficulty getting and holding a job because of his neurocognitive issues. In the interval since the previous visit I was approached several times to assist Pj in appealing his SSI ruling. I believe that he is now getting disability benefits. ROS: No weight loss, fever, night sweats. No changes in vision, changes in hearing, ear pain, nasal discharge, mouth sores, sore throat, changes in voice quality No DONOHUE, chest pain or palpitations No wheezing, SOB, cough, or difficulty breathing. No N/V/C/D. No abdominal pain. No dysuria, hematuria, frequency, or urgency. No change in gait or strength. No rash. No significant bruising. No tingling of fingers or toes, changes in coordination, balance or gait. 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 He had a 2-3 day history of a swollenneck with significant exercise intolerance. His CBC at presentation showed pancytopenia and chest x-ray revealed significant mediastinal adenopathy. At age 9, during a routine surveillance lumbar puncture, Chele was found to have 7% lymphoblasts. He was noted to have optic nerve involvement at this time. Treatment: Chemotherapy and radiation therapy Facility: [facility] ([place], [place]) Protocol: POG 9296 (enrolled) for original diagnosis, 9411 (Simal 9, followed) for LITERACY TEACHER relapse Completed: February 1995 and June 1996 Chemotherapy: Anthracyclines (total dose 375 mg/m2), Asparaginase, Corticosteroids, Cyclophosphamide, Cytarabine, Etoposide, Hydrocortisone, Ifosfamide, Mercaptopurine, Methotrexate, and Vincristine Radiation: February 1995: Emergency treatment to eye - The right optic nerve was treated with an KELLY field measuring 5x5 cm. 1000 cGy at 200 cGy per fraction was delivered prescribed at 5 cm. depth from 03/16-03/20/95 encompassing 4 days. The first two treatment were given with 18 MV photons in order to decrease conjunctival dose given the fact the patient had received Adriamycin in the prior week. September 1995-October 1995 Treatment was delivered in a fashion similar to [facility] craniospinal portals. The whole brain received 2400 cGy over 22 elapsed days and 16 fractions of 150 cGy each. The portals were shaped to encompass the entire brain and its meninges, as well as at least 1/2 of the orbital contents. 1500 cGy was delivered to the spinal axis through a single posterior field. This extended to slightly below S2. Feathering was used at the junction between the cranio and spinal portals. All treatment was delivered with 6 MV x-rays. Surgery: 11/22/92, 06/19/94 and 05/10/95 mediport placements Complications: Pj had an allergic reaction to PEG-Asparaginase during induction. Pj developed encephalopathy during treatment for his LITERACY TEACHER relapse, so the therapy was aborted. The precise etiology of his encephalopathy is unknown. Monitorin07/25/05 MRI ??? Generalized whole brain atrophy and associated ventriculomegaly. No evidence for mesial temporal sclerosis or obvious epileptogenic focus. Post-treatment changes involving the right optic nerve. 07/03/05 Echocardiogram was within normal limits with LV systolic performance borderline low-normal. Medical PMH: Was diagnosed with ADHD as a child. Pj has seasonal allergies. Medications: Methylphenidate 20 mg daily Allergies: ADR/ALLERGIES: ADR/ALLERGY REACTION SEVERITY E-COLI L-ASPARAGINASE FH: Dad has DM 2. Mom is healthy. No new diagnoses of cancer or heme disorders. SH: As above. Physical Exam: General: Cooperative and pleasant, interactive, in NAD VS: T 36.6 P 82 RR 18 BP 132/68 Wt 92.6 kg Ht 169.1 cm HEENT: PERRL, EOMI, +right eye exotropia, notable cranial asymmetry consistent with history of cranial radiation, w/o oral lesions, nl TMs Neck: supple, w/o thyromegaly Nodes: w/o significant lymphadenopathy Lungs: clear CV: RRR, no murmur Abd: soft, obese, nontender, no masses, no HSM Ext: FROM Neuro: nonfocal Derm: no rashes, bruises or petechiae Labs/Studies: H/H 15.7/43.1 Plts 361,000 WBC 8.3 (49.4N/32.7L/12.8M/4.5E) ANC 4110 Na 143 K 3.8 Cl 104 CO2 27 BUN 15 Cr 1.09 Ca 10 TP 7.5 Alb 4.9 T bili 0.3 Alk phos 90 AST 23 ALT 43 Echocardiogram: 1. Left ventricular chamber size, wall thickness, global and segmental systolic function are withinnormal limits. Ejection fraction is estimated to be 60%. 2. Right ventricular chamber size, wall thickness, and systolic function are within normal limits. 3. The cardiac valves appear structurally and functionally normal. 4. 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 He has been off therapy since June 1996.Pj has no evidence for disease recurrence by history, physical or lab exam. Pj's cardiac function is normal. The combination of anthracycline exposure and spinal radiation buthim at significant risk for dysfunction as he gets older. Pj 's neurocognitive deficits are his primary late effect. He is clearly challenged by his poor executive function. I would not expect him to be able to hold any job without significant supervision onthe job and significant assistance at home getting to his job. At his last visit his father was much more distressed by Pj's issues to the point I had concerns about where Pj would be able to live. These issues have clearly been worked out. Dad apparently has a different girlfriend now so this may have improved the issues at home. As noted above I discussed with Pj that I was not the appropriate provider to assess for need for medical marijuana. I had some brief conversation with Pj about life long issues including cardiac risk. It is not clear that he focused on this issue. I am going to provide his primary care provider with a treatment summary and some broad recommendations for follow-up. Some of the risks are outlined below. It is not clear to me that Pj will return to this clinic with any consistency. Chele's past cancer therapy puts him at increased risk for the following late effects: Secondary Malignancy: Survivors who have had radiation therapy in the past are at risk for developing a secondary benign or malignant neoplasm, including bone, soft tissue and skin cancer, in the radiation field. Because Pj had craniospinal radiation, he is also at risk for developing a secondary brain tumor and thyroid cancer. Pj should have the skin and soft tissue in and around the irradiated area inspected carefully. If he develops headaches, vomiting, seizures or focal neurologic signs, he should be evaluated urgently. Pj should receive a thyroid exam yearly. Acute Myeloid Leukemia: Pj???s past chemotherapy puts him at risk for developing a secondary leukemia, AML. Survivors are at highest risk within the first 10 years after receiving this chemotherapeutic agent. Pj is more than 10 years off therapy, so we do not expect him to develop a secondary leukemia. However, if he develops excessive fatigue, bleeding, bruising or petechiae, a CBC should be obtained. Cardiac Toxicity: Radiation therapy may cause many forms of cardiac toxicity including congestive heart failure, cardiomyopathy, pericarditis, valvular disease, myocardial infarction, arrhythmia and atherosclerotic heart disease. In addition to thoracic spine radiation, Pj was exposed to anthracyclines, which also puts him at risk for having cardiac problems.. Anthracyclines have been shown to causecardiomyopathy, arrhythmias, and subclinical left ventricular dysfunction. If Pj develops shortnessof breath, orthopnea, chest pain, palpitations or new cardiac findings on exam, he should have an ECG, echocardiogram and referral to a records custodian. It is important that he not smoke or use drugs as these can increase the risk for developing cardiac toxicity. It is important that hypertension be managed aggressively. According to the [facility]???s Long-Term Follow-Up Guidelines, which are not evidenced based, screening echocardiograms should be obtained every year or so. Neurocognitive Deficits: Cranial radiation and Pj???s past chemotherapy, as well as the episode of encephalopathy put him at risk for developing functional and learning deficits, diminished IQ and behavioral changes. In particular, survivors are at risk for developing problems with executive function(planning and organizing), sustained attention, memory, processing speed and visual-motor integration. Survivors are also at risk for developing deficits in math and reading, particularly reading comprehension. Pj clearly has significant neurocognitive deficits. Clinical Leukoencephalopathy: Cranial radiation and intrathecal chemotherapy put Pj at some risk for developing spasticity, ataxia, dysarthria, dysphagia, hemiparesis and seizures. He should receive athorough neurologic exam yearly. Peripheral Sensory or Motor Neuropathy: Vincristine has been shown to cause areflexia, weakness, foot drop and paresthesias. These are rare late effects. Pj should have a thorough neurologic exam at least yearly. Raynaud???s Phenomenon: Survivors who received vincristine in the past may develop vasospastic attacks of their hands, feet, nose, lips, cheeks or ear lobes related to stress or cold temperatures. Pj should wear protective clothing in cold environments and avoid smoking which can make this worse. Growth Hormone Deficiency: Cranial radiation puts a survivor at risk for developing GH deficiency. Pj???s height, weight and BMI should be followed closely. If there is any concern about GH deficiency, Endocrinology consultation is recommended. Obesity: Cranial radiation may lead to obesity, especially in those children who receive high doses at a young age. Again, Pj???s weight, height and BMI should be followed closely. If concerns arise, fasting blood glucose, lipid profile and insulin levels may be helpful. Pj should eat a healthy dietand get plenty of physical activity. Hypothyroidism: Hypothyroidism may occur after cranial radiation. If Pj develops fatigue, weight gain, cold intolerance, constipation, dry skin or brittle hair, he should have TSH and free T4 levels obtained. If concerns arise, Endocrinology consultation is recommended. Thyroid Nodules: Cranial radiation may cause thyroid nodules, so Pj should have a thyroid exam at least yearly. Ultrasound or fine needle aspiration should be obtained for any palpable nodules. Gonadal Dysfunction: Cyclophosphamide and ifosfamide put Pj at risk for developing hypogonadism andinfertility. Pj should practice safe sex and not rely on his past chemotherapy as control. Ifhe has concerns about infertility, semen analysis should be obtained. Of note, if abnormalities are f ound on semen analysis, periodic evaluation over time is recommended as resumption of spermatogenesis can occur up to 10 years after therapy. Urinary Tract Toxicity: Exposure to cyclophosphamide and ifosfamide puts a survivor at risk for developing hemorrhagic cystitis, bladder fibrosis, dysfunctional voiding, vesicoureteral reflux, and hydronephrosis as late effects. If Pj develops hematuria, urinary urgency or retention, dysuria or an abnormal urinary stream, he should be evaluated. Bladder Malignancy: Cyclophosphamide puts a survivor at small risk for developing bladder cancer. Again, if Pj develops hematuria, urinary urgency or retention, dysuria or an abnormal urinary stream, he should be evaluated by a physician. Renal Toxicity: Ifosfamide and methotrexate put a survivor at risk for developing kidney dysfunction. Pj should have his blood pressure monitored at routine office visits and see a physician for any urinary complaints. Hepatic Dysfunction: Methotrexate and mercaptopurine (6-MP) may cause liver dysfunction as a late effect. Pj should be assessed for scleral icterus, jaundice and hepatomegaly. It is not necessary to obtain screening LFTs. Osteoporosis/AVN: Methotrexate, steroids and cranial radiation may cause thinning of the bones. Steroids may cause avascular necrosis as a late effect. Pj should consume adequate amounts of calcium and vitamin D. Screening DEXA scans are not indicated. He should be evaluated for any persistent bone or joint pain. Scoliosis/Kyphosis: Pj???s spinal radiation puts him at risk for having scoliosis and/or kyphosis. He should have a spine exam each year. Referral to orthopedics is recommended for significant spinal curves. Ocular Toxicity/Cataracts: Pj???s orbital radiation therapy puts him at risk for a host of eye problems, including cataracts. In addition, survivors who have received corticosteroids in the past are at risk for developing cataracts. Pj should have routine eye exams. If he develops any changes in hisvision (halos, diplopia), dry eye, or excessive tearing, he should see an teacher aide. Chronic Sinusitis: Cranial radiation puts a child at risk for developing chronic sinusitis. If concerns arise, Otolaryngology consultation and possibly CT scan of the sinuses may be helpful. Salivary Gland Dysfunction: Cranial radiation may cause dry mouth. Supportive care with moistening agents may be helpful. Dental Abnormalities: Cranial radiation may cause a host of dental problems such as tooth/root agenesis, periodontal disease, dental caries, malocclusion and TMJ dysfunction. Pj should see a dentist every 6 months. Mental Health Disorders/Risky Behavior: It has been shown that pediatric survivors of cancer are at risk for developing anxiety, depression, post- traumatic stress, social withdrawal and risk-taking behaviors. Survivors at highest risk for developing these disorders include those, like Pj, with a history of cranial radiation and intrathecal chemotherapy. If Pj is feeling unusually sad or anxious, has a change in his sleep patterns or appetite or is having problems with peers, a physician should evaluate him. Insurance: As a survivor of childhood cancer Pj may have some difficulty obtaining insurance. It isimportant that his diagnosis now be ???history of T- cell ALL?? and not ???ALL?? . Today's Plan: History and physical exam CBC, CMP Echocardiogram Discussion as noted above Follow Up Plan: Treatment summary with follow-up Yearly visits with primary care Echocardiogram every 1-5 years Pj to call with questions or concerns documented in this encounter Plan of Treatment Not on filedocumented as of this encounter Procedures Procedure Name Priority Date/Time Associated Comments Diagnosis DIFFERENTIAL, Routine 03/05/2012 1:45 PM Results for this AUTOMATED EDT procedure are i n the results section. CBC (WITH DIFF) Routine 03/05/2012 1:45 PM History of lymphoid Results for this EDT leukemia, acute procedure ar e in the results section. COMPREHENSIVE Routine 03/05/2012 1:45 PM History of lymphoid R esults for this METABOLIC PANEL EDT leukemia, acute procedure are in (NON-FASTING) the results section. documented in this encounter Results (ABNORMAL) DIFFERENTIAL, AUTOMATED (03/05/2012 1:45 PM EDT) [facility] Method Time Signature Neutrophils % 49.4 34.0 - CERNER 71.0 % MILLENNIUM Neutr Abs (ANC) 4.11 1.50 - CERNER 6.30 MILLENNIUM x10(3)/mcL Lymphocytes % 32.7 19.0 - CERNER 53.0 % MILLENNIUM Lymphocytes Abs 2.7 1.0 - 3.6 CERNER x10(3)/mcL MILLENNIUM Monocytes % 12.8 4.0 - 13.0 CERNER % MILLENNIUM Monocyte Abs 1.1 (H) 0.2 - 1.0 CERNER x10(3)/mcL MILLENNIUM Eosinophils % 4.5 0.0 - 7.0 CERNER % MILLENNIUM Eosinophils Abs 0.4 0.0 - 0.5 CERNER x10(3)/mcL MILLENNIUM Basophils % 0.5 0.0 - 2.0 CERNER % MILLENNIUM Basophils Abs 0.0 0.0 - 0.2 CERNER x10(3)/mcL MILLENNIUM Immature Gran % 0.10 0.00 - CERNER 0.66 % MILLENNIUM Comment: Immature granulocytes(IG's)percentage an d absolute count will include metamyelocytes, myelocytes, and promyelo cytes. Blood smears from CBCs yielding IG's will be scanned manually for concor danalesha. If this scan disagrees with the automated IG or if promyelocytes are not ed, a manual differential will be performed. Belen Gran Abs 0.01 0.00 - 0.05 x10(3)/mcL CER NER MILLENNIUM Specimen Anatomical Collection Method Collection Time Receive d Time (Source) Location / / Volume Laterality Blood specimen 03/05/2012 1:45 PM 012 1:50 (specimen) EDT PM EDT Maile Biggs MD HEMATOLOGY ORDERABLES Performing Organization Address City/State/[place] [address] CERNER MILLENNIUM Comprehensive metabolic panel (non-fasting) (03/05/2012 1:45 PM EDT) P athologist Signature Glucose Lvl 100 60 - 199 CERNER mg/dL MILLENNIUM Comment: Diabetes: >=200 mg/dL plus symp toms BUN 15 10 - 20 mg/dL CERNER MILLENNIU M Creatinine 1.09 0.80 - 1.50 mg/dL CERNER MILL ENNIUM Sodium 143 135 - 145 mmol/L CERNER SLIME NIUM Potassium 3.8 3.5 - 5.0 mmol/L CERNER SLIME NIUM Comment: Please note: ??Patients with WBC >100,00 0 may have falsely elevated Potassium levels. ??For accurate Potassium quantif ication in these patients send serum separator tube (gold top) for subsequent determinations. ??Contact the Clinical Chemistry Laboratory if there are any qu estions. Chloride 104 98 - 107 mmol/L CERNER MILLENN IUM CO2 27 22 - 31 mmol/L CERNER MILLENNI UM Anion Gap 12 5 - 15 mmol/L CERNER MILLENNIU M Calcium 10.0 8.5 - 10.5 mg/dL CERNER SLIME NIUM Total Protein 7.5 6.4 - 8.3 gm/dL CERNER MIL LENNIUM Albumin 4.9 3.2 - 5.2 gm/dL CERNER MILLENN IUM AST 23 0 - 39 unit/L CERNER MILLENNIU M ALT 43 0 - 55 unit/L CERNER MILLENNIU M Alk Phos 90 40 - 120 unit/L CERNER MILLENN IUM Total Bilirubin 0.3 0.2 - 1.3 mg/dL [facility] M ILLENNIUM Bili, Direct 0.1 0.0 - 0.3 mg/dL CERMAGGY ROSE ENNIUM Estimated GFR >60 >=60 ALYCIA Garcia Comment: The National Kidney Disease Education Pr ogram (NKDEP) has recommended all laboratories report estimated GFR (eGFR) along with plasma creatinine measurements to assist you with recognit ion of early kidney disease. Caveats: ??Plasma creatinine should be a t steady-state (unchanged within the past week). For patient s multiply eGFR by 1.2. The MDRD equation was developed using patients be tween the ages of 18 and 70 years. ?? The MDRD equation has not been validated for patients < 18 years of age and should not be used to assess renal function in the pediatric population. ??The MDRD eGFR equation will also overestimate the true GFR of patients above the age of 70. ??This overestimation is variable bu t increases with age. At present, NKDEP does NOT recommend usi ng the MDRD equation for drug dosing purposes and pharmacists should continue to use their current dosing methods. In addition, numerical eGFR values great er than 60 ml/min/1.73 square meters should be treated as > 60, and not an ex act number due to greater inaccuracies at these higher values. Per NKDEP, they classify normal renal function as any GFR >60ml/min/1.73 square meters; chronic kidney disease wh en GFR <60, and renal failure when GFR <15. ??This calculation may not be valid for patients with atypical muscle mass (very lean or obese), acute renal failur e, and in patients with diabetic kidney disease. References: http://nkdep.nih.gov/resources/NKDEP_Sug gestn4Labs_0606_508.pdf http://www.kidney.org/professionals/kls/ pdf/faq_gfr.pdf Rodolfo K, Iliana NA, Ted AK, Gui TS, Joselo AD, Gerardo LAMAR. Relative performance of the MDRD and CKD-EPI equa tions for estimating glomerular filtration rate among patients with vari ed clinical presentations. Clin J Am Soc Nephrol;6:1963-72. Specimen Anatomical Collection Method Collection Time Receive d Time (Source) Location / / Volume Laterality Blood specimen 03/05/2012 1:45 PM 012 1:50 (specimen) EDT PM EDT Resulting Agency Comment Spec In Lab Maile Biggs MD CHEMISTRY ORDERABLES Performing Organization Address City/[facility]/ZIP Code Phon e Number [address] [facility] CBC (with Diff) (03/05/2012 1:45 PM EDT) P athologist Signature WBC 8.3 4.0 - 10.0 CERNER x10(3)/mcL MILLENNIUM RBC 4.93 4.63 - 6.08 CERNER x10(6)/mcL MILLENNIUM Hemoglobin 15.7 13.7 - 17.5 CERNER gm/dL MILLENNIUM Hematocrit 43.1 40.0 - 51.0 CERNER % MILLENNIUM MCV 87.4 79.0 - 92.0 CERNER fL MILLENNIUM MCH 31.8 25.6 - 32.2 CERNER pg MILLENNIUM MCHC 36.4 32.0 - 36.5 CERNER gm/dL [facility] Platelets 361 145 - 370 CERNER x10(3)/mcL MILLENNIUM RDWSD 39.5 35.0 - 46.0 CERNER fL MILLENNIUM RDWCV 12.4 10.9 - 14.4 CERNER % MILLENNIUM MPV 9.8 9.0 - 12.[address] [facility] Specimen Anatomical Collection Method Collection Time Receive d Time (Source) Location / / Volume Laterality Blood specimen 03/05/2012 1:45 PM 012 1:50 (specimen) EDT PM EDT Resulting Agency Comment Spec In Lab Maile Biggs MD HEMATOLOGY ORDERABLES Performing Organization Address City/[facility]/ZIP Code Phon e Number [address] LAB[address] [address] [facility] documented in this encounter Visit Diagnoses Diagnosis History of lymphoid leukemia, acute - Pr imary Personal history of lymphoid leukemia Leukemia, acute lymphoid, in remission Acute lymphoid leukemia in remission Neurocognitive deficits Other symptoms involving nervous and mus culoskeletal systems documented in this encounter Care Teams Fermentation Manager Relationship Specialty Start Date End Date Lesia Paiz MD PCP - General 09/19/10 09/16/17 [facility] [place] [address] documented as of this encounter
--- OUTSIDE RECORDS SUMMARY | 2022-05-11 02:17 | XMS_ITS | Encounter Summary ---
:1985 Author Organization [facility] [place] [address] Care Team Providers Name Role Phone Oanh Yang APRN Primary Care Provider Reason for Referral Diagnostic Test (Routine) - Closed Specialty Diagnoses / Procedures Referred By Contact Refer red To Contact Cardiology Diagnoses Leukemia, acute lymphoid, in remission Fatigue, unspecified type Taco Chaudhary MD [facility] Non-Inv Card Lab Procedures Echocardiogram Transthoracic(Leb) [facility] HEMATOLOGY/[place] [address] [place] [address] Fax: Referral ID Status Reason Start Date Expiration Date Visits V isits Requested Authorized [id number] Closed Specialty 07/13/2018 07/13/2019 1 1 Service Requested Reason for Visit Reason Comments Advice Only Consultation (Routine) - Closed Specialty Diagnoses / Procedures Referred By Contact Refer red To Contact Hematology and Diagnoses ACUTE LYMPHOCYTIC LEUKEMIA IN REMISSION Oanh Yang APRN [facility] Hem Onc 3k Oncology [address] [place] [address] DR ESTRADA [address] [place] [id number] [place] [phone] Phone: Fax: Referral ID Status Reason Start Date Expiration Date Visits V isits Requested Authorized [id number] Closed Consult, 06/10/2018 06/10/2019 1 1 Test & Treat Connection Center Encounter Details Date Type Department Care Team Description 07/11/2018 Office Visit Hematology and Ray Chaudhary MD [facility] DR HEMATOLOGY/[place] [address] Leukemia, acute lymphoid, in remission; Oncology at [facility] Claudia Pantoja APRN [facility] HEMATOLOGY/[place] [address] Fatigue, unspecified type [facility] [place] [address] Social History Tobacco Use Types Packs/Day Years [...] Sign Reading Time Taken Comments Blood Pressure 114/63 07/11/2018 12:56 PM EDT Pulse 72 07/11/2018 12:56 PM EDT Temperature 36.8 ??C (98.2 ??F) 07/11/2018 12:56 PM EDT Respiratory Rate 22 07/11/2018 12:56 PM EDT Oxygen Saturation 100% 07/11/2018 12:56 PM EDT Inhaled Oxygen Concentration - - Weight 98.2 kg (216 lb 8 oz) 07/11/2018 12:56 PM EDT Height 170.2 cm (5' 7.01) 07/11/2018 12:56 PM EDT Body Mass Index 33.9 07/11/2018 12:56 PM EDT documented in this encounter Progress Notes Taco Chaudhary MD - 07/11/2018 1:00 PM EDT HEMATOLOGY/BMT CONSULTATION VISIT NOTE CHIEF COMPLAINT: Chele Kerr is a 32 y.o. male referred by Oanh Yang APRN for evaluation of h/o childhood leukemia. Data Review (From Oanh Yang APRN and eD and [facility]) Following information from Pj's last visit with Pediatric Oncology (Dr. 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 ([place], [place]) Completed: June 1996 Chemotherapy: Anthracyclines (total dose 375 mg/m2), Asparaginase, Corticosteroids, Cyclophosphamide, Cytarabine, Etoposide, Hydrocortisone, Ifosfamide, Mercaptopurine, Methotrexate, and Vincristine Radiation: February 1995: the right optic nerve was treated with 1000 cGy September 1995-October 1995: the whole brain received 2400 cGy, and 1500 cGy was delivered to the spine to below S2 Surgery: 11/22/92, 06/19/94 and 05/10/95 mediport placements Complications: Pj had an allergic reaction to PEG-Asparaginase during induction. He developed encephalopathy (injury to the brain) during treatment for his relapse, so the therapy was stopped abruptly. The precise cause of Pj???s encephalopathy is unknown. Monitorin07/03/05 Echocardiogram was normal. 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 Chele had previously been followed in the pediatric oncology clinicbut has not seen them for several years. He says he returns for follow-up today at the insistence ofhis primary care physician. He denies that he is having any new medical issues or concerns. He says that he feels well overall day to day. Has chronic joint and back pain but this is unchanged. He saysthat he has PTSD when coming to [facility] or even driving the [place] in [place]. 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 Has claustrophobia. Only recent medical issue was tooth infection and had to have it pulled 2 weeks ago. No other infections. Has seasonal allergies. Dennis also helps with chronic anxiety. His partner is with him today. Long-Term ALL ROS Learning Problems: hasn't been an issue Heart Toxicity: no PND, orthopnea, CP - gets exercise every day. 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 REVIEW OF SYSTEMS Constitutional --Energy level: good --Pain: chronic back pain --Fevers/chills/sweats: No --Unexpected weight loss or gain: No Eyes - No change in vision Ears, nose, throat - No change hearing, no oral or throat pain or thrush Cardiovascular --SOB: No --DONOHUE: mild --chest pain: No Respiratory --Cough: No --SOB, DONOHUE: as above Gastrointestinal --Appetite: good --Nausea/vomiting/diarrhea/constipation: occasional constipation; occasional nausea Genitourinary --Dysuria or hematuria: No Musculoskeletal --Muscle pain or weakness: No --Joint pain or swelling: as above Immune System --Recent infections: No Hematology/Lymph --Bruising/bleeding/melena: No --Enlarged nodes or other masses: No Skin --Rashes or petechiae: No Other ROS: All negative PROBLEM LIST Patient Active Problem List Diagnosis Code ??? 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 Neurocognitive deficits R29.818, R41.89 ??? PSC (posterior subcapsular cataract), right [id number] ??? Exotropia, right eye H50.10 ??? Hyperopia of left eye with astigmatism H52.02, H52.202 MEDICATIONS Current Outpatient Prescriptions on File Prior to Visit Medication Sig Dispense Refill ??? FLUoxetine (PROZAC) 40 mg Capsule Take 60 mg by mouth daily. No current facility-administered medications on file prior to visit. ALLERGIES/ADR Allergies Allergen Reactions ??? Asparaginase Hives Reaction to E. Coli asparaginase including the PEG formulation. ??? Penicillins CIS - RASH ??? Zoloft [Sertraline] SOCIAL HISTORY History Substance Use Topics ??? Smoking status: Not on file ??? Smokeless tobacco: Not on file ??? Alcohol Use: Not on file FAMILY HISTORY Family History Problem Relation Age of Onset ??? Strabismus Mother ??? Diabetes Father ??? Amblyopia Neg Hx ??? Blindness Neg Hx ??? Cancer Neg Hx ??? Cataracts Neg Hx ??? Glaucoma Neg Hx ??? Hypertension Neg Hx ??? Macular Degeneration Neg Hx ??? Retinal Detachment Neg Hx ??? Stroke Neg Hx ??? Thyroid Disease Neg Hx ??? Heart Disease Neg Hx PHYSICAL EXAM VITAL SIGNS: Blood pressure 114/63, pulse 72, temperature 36.8 ??C (98.2 ??F), temperature source Temporal, resp. rate 22, height 170.2 cm (5' 7.01), weight 98.2 kg (216 lb 8 oz), SpO2 100 %. GENERAL: Chele Kerr is a well-appearing 32 y.o. male in no acute distress. ENT: Sinuses non-tender. Oropharynx clear. No masses. No thrush. ENDOCRINE: No thyromegaly palpated. CARDIOVASCULAR: Heart with regular rate and rhythm without S3,S4 or murmurs. No cyanosis or peripheral edema. PULMONARY: Lungs are clear to auscultation without rales, rhonchi or wheezing. GASTROINTESTINAL: Abdomen soft and non-tender without palpable masses or hepatosplenomegaly. MUSCULOSKELETAL: Neck supple with full ROM. No spine or CVA tenderness. SKIN: No rashes, bruises or petechiae. LYMPH: No abnormal lymphadenopathy. NEUROLOGICAL: Alert and oriented to person, place and time. LABORATORY Recent Results (from the past 72 hour(s)) Comprehensive metabolic panel (non-fasting) Result Value Ref Range Glucose Lvl 86 65 - 199 mg/dL BUN 13 10 - 20 mg/dL Creatinine 1.08 0.80 - 1.50 mg/dL Sodium 140 135 - 145 mmol/L Potassium 3.8 3.5 - 5.0 mmol/L Chloride 100 98 - 107 mmol/L CO2 28 22 - 31 mmol/L Anion Gap 12 5 - 15 mmol/L Calcium 9.3 8.5 - 10.5 mg/dL Total Protein 7.3 6.1 - 8.0 gm/dL Albumin 4.4 3.2 - 5.2 gm/dL AST 25 0 - 39 unit/L ALT 45 0 - 55 unit/L Alk Phos 81 40 - 120 unit/L Total Bilirubin 0.2 0.2 - 1.3 mg/dL eGFR 91 >=60 mL/min/1.73 m?? eGFR 105 >=60 mL/min/1.73 m?? TSH Result Value Ref Range TSH 2.11 0.27 - 4.20 mlU/ML Hemogram Result Value Ref Range WBC 8.5 4.0 - 9.5 x10(3)/mcL RBC 4.67 4.58 - 5.54 x10(6)/mcL Hemoglobin 14.0 13.7 - 16.5 gm/dL Hematocrit 41.2 40.5 - 48.5 % MCV 88.2 82.9 - 93.1 fL MCH 30.0 27.5 - 32.1 pg MCHC 34.0 32.0 - 35.7 gm/dL Platelets 373 (H) 145 - 357 x10(3)/mcL RDWSD 39.4 36.0 - 45.0 fL RDWCV 12.1 11.4 - 13.8 % MPV 9.8 7.6 - 12.9 fL nRBC % Auto 0.0 % nRBC Abs Auto 0.000 0.000 - 0.000 x10(3)/mcL Differential, Automated Result Value Ref Range Neutrophils % 37.2 % Neutr Abs (ANC) 3.18 1.70 - 6.10 x10(3)/mcL Lymphocytes % 40.3 % Lymphocytes Abs 3.4 (H) 0.9 - 3.2 x10(3)/mcL Monocytes % 11.4 % Monocyte Abs 1.0 (H) 0.3 - 0.9 x10(3)/mcL Eosinophils % 9.7 % Eosinophils Abs 0.8 (H) 0.0 - 0.4 x10(3)/mcL Basophils % 1.3 % Basophils Abs 0.1 0.0 - 0.1 x10(3)/mcL Immature Gran % 0.10 % Belen Gran Abs 0.01 0.00 - 0.04 x10(3)/mcL RADIOLOGY - None ASSESSMENT & PLANS 1. ALL -Chele is now approximately 26 years status post his original diagnosis of acute lymphocyticleukemia. After an early relapse he is now been in complete remission for over 2 decades. Despite this good long-term response of his leukemia, he continues to suffer multiple long-term sequelae of histherapy. These include his anxiety, claustrophobia, bone pain, vision disorders and possibly fragility of his teeth. In addition Ruben being on disability also is likely due to his therapy for ALL. Despite these issues, Chele seems to be living a satisfying life. His above laboratory tests show no evidence of any serious organ dysfunction and on exam today there is no sign of cardiovascular or pulmonary dysfunction And his TSH is normal. Plans - Chele has not had a cardiac echo in several years. He is at risk of cardiomyopathy. He was agreeable to having a cardiac echo and asked if it could be done 2 weeks from the date of today's appointment. We will arrange for this. We will see him back for yearly follow-up in approximately 1 yearbut I emphasized to him that we remain available any time should he have any questions or concerns. Taco Chaudhary MD Division of Hematology and Blood & Marrow Transplant [facility] documented in this encounter Plan of Treatment Not on filedocumented as of this encounter Results TSH (06/12/2019 8:51 AM EDT) P athologist Signature TSH 2.59 0.27 - 4.20 [facility] mcIU/mL [facility] Specimen Anatomical Collection Method Collection Time Receive d Time (Source) Location / / Volume Laterality Blood specimen 06/12/2019 8:51 AM 019 9:10 (specimen) EDT AM EDT Resulting Agency Comment Spec In Lab Taco Chaudhary MD CHEMISTRY ORDERABLES Performing Organization Address City/State/ZIP Code Phon e Number [place] [phone] Immunoglobulins, Quantitative (06/12/2019 8:51 AM EDT) athologist Signature IgG 1,143 700 - 1,600 [facility] mg/dL [facility] Comment: Pediatric Reference Intervals obtained f rom the Caliper Reference Interval project. http://www.Syntarga.ca/caliperp roject/index.html IgA 352 70 - 400 mg/dL [facility] IgM 88 40 - 230 mg/dL [facility] Specimen Anatomical Collection Method Collection Time Receive d Time (Source) Location / / Volume Laterality Blood specimen 06/12/2019 8:51 AM 019 9:10 (specimen) EDT AM EDT Resulting Agency Comment Spec In Lab Taco Chaudhary MD CHEMISTRY ORDERABLES Performing Organization Address City/State/[place] [address] (ABNORMAL) Comprehensive metabolic panel (non-fasting) (06/12/2019 8:51 AM EDT) athologist Signature Glucose Lvl 110 65 - 199 [facility] mg/dL [facility] Comment: Diabetes: >=200 mg/dL plus symp toms BUN 15 10 - 20 mg/dL [facility] Creatinine 1.16 0.80 - 1.50 mg/dL [facility] Sodium 143 135 - 145 mmol/L [facility] Potassium 3.5 3.5 - 5.0 mmol/L [facility] Comment: Please note: ??Patients with WBC >100,00 0 may have falsely elevated Potassium levels. ??For accurate Potassium quantif ication in these patients send serum separator tube (gold top) for subsequent determinations. ??Contact the Clinical Chemistry Laboratory if there are any qu estions. Chloride 103 98 - 107 mmol/L [facility] CO2 28 22 - 31 mmol/L [facility] Anion Gap 12 5 - 15 mmol/L [facility] Calcium 9.6 8.5 - 10.5 mg/dL [facility] Total Protein 8.1 (H) 6.1 - 8.0 gm/dL [facility] Albumin 5.0 3.2 - 5.2 gm/dL [facility] AST 43 (H) 0 - 39 unit/L [facility] ALT 132 (H) 0 - 55 unit/L [facility] Alk Phos 102 40 - 130 unit/L [facility] Total Bilirubin 0.7 0.2 - 1.3 mg/dL [facility] Estimated GFR 83 >=60 mL/min/1.73 m?? [facility] Comment: The eGFR was calculated using the CKD-EP I equation. As with all creatinine based estimates of kidney function, eGFR values calculated with the CKD-EPI equation are not accurate in patients wi th acute kidney failure, extremes of body mass or the acutely ill. [email or web address]kf eGFR 96 >=60 mL/min/1.73 m?? [facility] Comment: The eGFR was calculated using the CKD-EP I equation. As with all creatinine based estimates of kidney function, eGFR values calculated with the CKD-EPI equation are not accurate in patients wi th acute kidney failure, extremes of body mass or the acutely ill. [email or web address]kf Specimen Anatomical Collection Method Collection Time Receive d Time (Source) Location / / Volume Laterality Blood specimen 06/12/2019 8:51 AM 019 9:10 (specimen) EDT AM EDT Resulting Agency Comment Spec In Lab Taco Chaudhary MD CHEMISTRY ORDERABLES Performing Organization Address City/State/[place] [address] ECHOCARDIOGRAM COMPLETE W CONTRAST (07/25/2018 11:01 AM EDT) P athologist Signature EF 55 [facility] Specimen (Source) Anatomical Location Collection Method / Collectio n Time Received Time / Laterality Volume 07/25/2018 Narrative [facility] - 07/25/2018 11:24 AM ED T Procedure: ?Transthoracic Echocardiogram Patient: ?VERGE CHELE E ?(Age): 1985(32y) Med Rec#: ? [id number] ?Sex: ?M ? Site Loc: ? [facility] ?Ht / Wt: ??170(cm)/98(kg) Pt. Loc: ?Echo Lab ?BSA: ?2.09 Study Date: ?? 07/25/2018 ?Pt. Type: Outpatient Tape: ? Referring: Taco Chaudhary Reading: Paul Grewal ([id number]) Driveway Sealer: Jasbir Manrique Diagnosis: *Acute lymphoblastic leukemia, in diego dietz (C91.01) *Other fatigue (R53.83) Rhythm: ? Sinus BP: ? 115/70 SUMMARY: 1. Technically limited. 2. There is low normal to normal global left ventricular systolic function. The quantitative left ventricu lar ejection fraction by biplane Linares's method is 55%. global longitud inal strain (GLS)= -13.4%, with suboptimal tracking. ??The visual estima te EF ??50-55%. ?? 3. Right ventricular global systolic fun ction is probably normal. 4. Normal chamber and aortic dimensions. 5. No significant valvular disease. ?? 6. The pericardium appears normal and th ere is no evidence of a pericardial effusion. ??When compared si de by side to the prior 03/05/18 study, LV function is preserved, althoug h EF may be slightly lower (EF=60%-->50-55%), however, contrast was used on this study. ?? Findings ? : Study Quality: ? Technically limited Left Ventricle: ? The left ventricul ar chamber size is normal. ?Left ventricular wall thickness is normal. ?No ventricular septal defect is vi sualized. ?There is normal global left ventri cular systolic function. ?The quantitative left ventricular ejection fraction by biplane Linares's method is 55%. global longitud inal strain (GLS)= -13.4%, with suboptimal tracking. ?There are no left ventricular segm ental wall motion abnormalities. ?Left ventricular diastolic functio n is normal. Left Atrium: ? The left atrium is no rmal in size.Volume Index= 18ml/m2. Right Ventricle: ? The right ventric le is normal in size. ?Right ventricular global systolic function is probably normal. ?Pulmonary artery hypertension coul d not be assessed due to inadequate tricuspid regurgitation jet. Right Atrium: ? The right atrium is normal in size. Aortic Valve: ? The aortic valve is probably tricuspid. ?Systolic excursion of the aortic v alve is normal. ?There is no evidence of aortic juanita ve stenosis. ?There is no evidence of aortic reg urgitation. Mitral Valve: ? The mitral valve jane flets appear normal. ?There is no evidence of mitral reg urgitation. Tricuspid Valve: ? The tricuspid juanita ve is probably normal. ?There is no evidence of tricuspid valve regurgitation present. Pulmonic Valve: ? The pulmonic valve is not well visualized. Pericardium: ? The pericardium appea rs normal and there is no evidence of a pericardial effusion. Aorta: ? The aortic root is normal i n size. ?The ascending aorta is normal in s ize. ?The aortic arch is normal in size. Pulmonary Artery: ? The main pulmona ry artery is not well visualized. Venous: ? The inferior vena cava is poorly visualized. Misc: ? Two-dimensional echo, spectr al Doppler and color Doppler performed. ?Optison contrast (one 3 ml vial) w as used to enhance endocardial definition. Excess contrast was discarde d. Chambers 2D ?Value ?Units (Range) ? RVIDd ??Base ? 3.8 ?cm ? IVSd (2D) ? 0.9 ?cm ? LVPWd (2D) ?0.9 ?cm ? IVS:LVPW ratio (2D) 1 ?ratio ? RWT (2D) ?0.4 ?ratio ? RWT PW (2D) ? 0.4 ?ratio ? LVIDd (2D) ?4.5 ?cm ? LVIDs (2D) ?3.2 ?cm ? LVIDd (2D) index ?2.1 ?cm/m2 ? LVIDs (2D) index ?1.5 ?cm/m2 ? LV FS (2D) ?29 ? % ? EF Teichholz (2D) ?? 55 ? % ? Ao root diameter (2D3.3 ?cm (2.1 - 3.6) ? Ascending Ao ?2.9 ?cm (2 - 3.5) ? Aortic arch ? 2.3 ?cm ? Volumes/Mass ?Value ?Units (Range) ? LA Area 4 CH ?14 ? cm2 (<21) ? RA AREA 4CH ? 14 ? cm2 ? LA ESV BP (MOD) inde17.5 ? ml/m2 ? LV ESV SP 4CH (MOD) 48.7 ? ml ? LV ESV SP 2CH (MOD) 28.6 ? ml ? LV EDV BP ? 86.4 ? ml ? LV ESV BP ? 39 ? ml ? LV EDV BP index ? 41.3 ? ml/m2 ? LV ESV BP index ? 18.7 ? ml/m2 ? BP EF (MOD) ? 55 ? % ? LV mass (2D) ?123 ?g ? LV mass (2D) index ??58.9 ? g/m2 ? Diastolic/Systolic Function ?Value ?Units (Range) ? MV E-wave Vmax ?0.6 ?m/sec ? MV deceleration [id number] ?msec ? MV A-wave Vmax ?0.6 ?m/sec ? MV E:A ratio ?1.1 ?ratio ? P. vein S-wave Vmax 0.3 ?m/sec ? P. vein D-wave Vmax 0.6 ?m/sec ? P. vein S:D Vmax rat0.5 ?ratio ? LV septal e' Vmax ?? 0.1 ?m/sec ? LV lateral e' Vmax ??0.1 ?m/sec ? LV average e' Vmax ??0.1 ?m/sec ? LV E:e' septal ratio7.8 ?ratio ? LV E:e' lateral rati5.7 ?ratio ? LV average E:e' rati6.2 ?ratio ? Tricuspid Valve ?Value ?Units (Range) ? TAPSE ? 1.6 ?cm ? RV lateral s' Vmax ??0.1 ?m/sec ? Wall Motion: Segment Name ?Rest ? Base-Anteroseptal ?? Normal ? Base-Anterior ? Normal ? Base-Anterolateral ??Normal ? Base-Posterolateral Normal ? Base-Inferior ? Normal ? Base-Inferoseptal ?? Normal ? Mid-Anteroseptal ?Normal ? Mid-Anterior ?Normal ? Mid-Anterolateral ?? Normal ? Mid-Posterolateral ??Normal ? Mid-Inferior ?Normal ? Mid-Inferoseptal ?Normal ? [place]-Septal ? Normal ? [place]-Anterior ? Normal ? [place]-Lateral ?Normal ? [place]-Inferior ? Normal ? [place]-Tip ?Normal ? This report has been electronically sign ed by: _ Paul Grewal MD ? 07/25/2018 11:24: 33 Images reviewed and interpretation keyanna ied [facility] Cardiac Ultrasound Laboratory Procedure Note Paul Grewal MD - 07/25/2018 Procedure: Transthoracic Echocardiogram Patient: NIHARIKA JEFFERSON(Age): 1984(32y) Med Rec#: [id number] Sex: M Site Loc: [facility] Ht / Wt: 170(cm)/98(kg) Pt. Loc: Echo Lab BSA: 2.09 Study Date: 07/25/2018 Pt. Type: Outpati ent Tape: Referring: Taco Chaudhary Reading: Paul Grewal ([id number]) Driveway Sealer: Jasbir Manrique Diagnosis: *Acute lymphoblastic leukemia, in diego dietz (C91.01) *Other fatigue (R53.83) Rhythm: Sinus BP: 115/70 SUMMARY: 1. Technically limited. 2. There is low normal to normal global left ventricular systolic function. The quantitative left ventricu lar ejection fraction by biplane Linares's method is 55%. global longitud inal strain (GLS)= -13.4%, with suboptimal tracking. The visual estimate EF 50-55%. 3. Right ventricular global systolic fun ction is probably normal. 4. Normal chamber and aortic dimensions. 5. No significant valvular disease. 6. The pericardium appears normal and th ere is no evidence of a pericardial effusion. When compared side by side to the prior 03/05/18 study, LV function is preserved, althoug h EF may be slightly lower (EF=60%-->50-55%), however, contrast was used on this study. Findings : Study Quality: Technically limited Left Ventricle: The left ventricular rayo mber size is normal. Left ventricular wall thickness is norm al. No ventricular septal defect is visuali zed. There is normal global left ventricular systolic function. The quantitative left ventricular eject ion fraction by biplane Linares's method is 55%. global longitud inal strain (GLS)= -13.4%, with suboptimal tracking. There are no left ventricular segmental wall motion abnormalities. Left ventricular diastolic function is normal. Left Atrium: The left atrium is normal i n size.Volume Index= 18ml/m2. Right Ventricle: The right ventricle is normal in size. Right ventricular global systolic funct ion is probably normal. Pulmonary artery hypertension could not be assessed due to inadequate tricuspid regurgitation jet. Right Atrium: The right atrium is normal in size. Aortic Valve: The aortic valve is probab ly tricuspid. Systolic excursion of the aortic valve is normal. There is no evidence of aortic valve st enosis. There is no evidence of aortic regurgit ation. Mitral Valve: The mitral valve leaflets appear normal. There is no evidence of mitral regurgit ation. Tricuspid Valve: The tricuspid valve is probably normal. There is no evidence of tricuspid valve regurgitation present. Pulmonic Valve: The pulmonic valve is no t well visualized. Pericardium: The pericardium appears nor mal and there is no evidence of a pericardial effusion. Aorta: The aortic root is normal in size . The ascending aorta is normal in size. The aortic arch is normal in size. Pulmonary Artery: The main pulmonary art clarence is not well visualized. Venous: The inferior vena cava is poorly visualized. Misc: Two-dimensional echo, spectral Dop pler and color Doppler performed. Optison contrast (one 3 ml vial) was us ed to enhance endocardial definition. Excess contrast was discarde d. Chambers 2D Value Units (Range) RVIDd Base 3.8 cm IVSd (2D) 0.9 cm LVPWd (2D) 0.9 cm IVS:LVPW ratio (2D) 1 ratio RWT (2D) 0.4 ratio RWT PW (2D) 0.4 ratio LVIDd (2D) 4.5 cm LVIDs (2D) 3.2 cm LVIDd (2D) index 2.1 cm/m2 LVIDs (2D) index 1.5 cm/m2 LV FS (2D) 29 % EF Teichholz (2D) 55 % Ao root diameter (2D3.3 cm (2.1 - 3.6) Ascending Ao 2.9 cm (2 - 3.5) Aortic arch 2.3 cm Volumes/Mass Value Units (Range) LA Area 4 CH 14 cm2 (<21) RA AREA 4CH 14 cm2 LA ESV BP (MOD) inde17.5 ml/m2 LV ESV SP 4CH (MOD) 48.7 ml LV ESV SP 2CH (MOD) 28.6 ml LV EDV BP 86.4 ml LV ESV BP 39 ml LV EDV BP index 41.3 ml/m2 LV ESV BP index 18.7 ml/m2 BP EF (MOD) 55 % LV mass (2D) 123 g LV mass (2D) index 58.9 g/m2 Diastolic/Systolic Function Value Units (Range) MV E-wave Vmax 0.6 m/sec MV deceleration [id number] msec MV A-wave Vmax 0.6 m/sec MV E:A ratio 1.1 ratio P. vein S-wave Vmax 0.3 m/sec P. vein D-wave Vmax 0.6 m/sec P. vein S:D Vmax rat0.5 ratio LV septal e' Vmax 0.1 m/sec LV lateral e' Vmax 0.1 m/sec LV average e' Vmax 0.1 m/sec LV E:e' septal ratio7.8 ratio LV E:e' lateral rati5.7 ratio LV average E:e' rati6.2 ratio Tricuspid Valve Value Units (Range) TAPSE 1.6 cm RV lateral s' Vmax 0.1 m/sec Wall Motion: Segment Name Rest Base-Anteroseptal Normal Base-Anterior Normal Base-Anterolateral Normal Base-Posterolateral Normal Base-Inferior Normal Base-Inferoseptal Normal Mid-Anteroseptal Normal Mid-Anterior Normal Mid-Anterolateral Normal Mid-Posterolateral Normal Mid-Inferior Normal Mid-Inferoseptal Normal [place]-Septal Normal [place]-Anterior Normal [place]-Lateral Normal [place]-Inferior Normal [place]-Tip Normal This report has been electronically sign ed by: _ Paul Grewal MD 07/25/2018 11:24:33 Images reviewed and interpretation verif ied [facility] Taco Chaudhary MD ECHO ORDERABLES Performing Organization Address City/State/ZIP Code Phon e Number [facility] (07/11/2018 2:01 PM EDT) P athologist Signature TSH 2.11 0.27 - 4.20 [facility] mlU/ML [facility] Specimen Anatomical Collection Method Collection Time Receive d Time (Source) Location / / Volume Laterality Blood specimen 07/11/2018 2:01 PM 018 2:30 (specimen) EDT PM EDT Resulting Agency Comment Spec In Lab Taco Chaudhary MD CHEMISTRY ORDERABLES Performing Organization Address City/State/ZIP Code Phon e Number [place] [phone] Comprehensive metabolic panel (non-fasting) (07/11/2018 2:01 PM EDT) athologist Signature Glucose Lvl 86 65 - 199 [facility] mg/dL [facility] Comment: Diabetes: >=200 mg/dL plus symp toms BUN 13 10 - 20 mg/dL [facility] Creatinine 1.08 0.80 - 1.50 mg/dL [facility] Sodium 140 135 - 145 mmol/L [facility] Potassium 3.8 3.5 - 5.0 mmol/L [facility] Comment: Please note: ??Patients with WBC >100,00 0 may have falsely elevated Potassium levels. ??For accurate Potassium quantif ication in these patients send serum separator tube (gold top) for subsequent determinations. ??Contact the Clinical Chemistry Laboratory if there are any qu estions. Chloride 100 98 - 107 mmol/L [facility] CO2 28 22 - 31 mmol/L [facility] Anion Gap 12 5 - 15 mmol/L [facility] Calcium 9.3 8.5 - 10.5 mg/dL [facility] Total Protein 7.3 6.1 - 8.0 gm/dL [facility] Albumin 4.4 3.2 - 5.2 gm/dL [facility] AST 25 0 - 39 unit/L [facility] ALT 45 0 - 55 unit/L [facility] Alk Phos 81 40 - 120 unit/L [facility] Total Bilirubin 0.2 0.2 - 1.3 mg/dL [facility] Estimated GFR 91 >=60 mL/min/1.73 m?? [facility] Comment: The eGFR was calculated using the CKD-EP I equation. As with all creatinine based estimates of kidney function, eGFR values calculated with the CKD-EPI equation are not accurate in patients wi th acute kidney failure, extremes of body mass or the acutely ill. [email or web address] eGFR 105 >=60 mL/min/1.73 m?? [facility] Comment: The eGFR was calculated using the CKD-EP I equation. As with all creatinine based estimates of kidney function, eGFR values calculated with the CKD-EPI equation are not accurate in patients wi th acute kidney failure, extremes of body mass or the acutely ill. [email or web address] Specimen Anatomical Collection Method Collection Time Receive d Time (Source) Location / / Volume Laterality Blood specimen 07/11/2018 2:01 PM 018 2:30 (specimen) EDT PM EDT Resulting Agency Comment Spec In Lab Taco Chaudhary MD CHEMISTRY ORDERABLES Performing Organization Address City/State/[place] [address] documented in this encounter Visit Diagnoses Diagnosis Leukemia, acute lymphoid, in remission Acute lymphoid leukemia in remission Fatigue, unspecified type Leukemia, acute lymphoid, in remission Acute lymphoid leukemia in remission Fatigue, unspecified type documented in this encounter Care Teams Lab Instructor Relationship Specialty Start Date End Date Oanh Yang, GEOGRAPHY PROFESSOR PCP - General Family Medicine 09/17/17 [address] [place] [address] documented as of this encounter
--- OUTSIDE RECORDS SUMMARY | 2022-05-11 02:17 | XMS_ITS | Encounter Summary ---
:1985 Author Organization [facility] [address] Care Team Providers Name Role Phone Lesia Paiz MD Primary Care Provider Reason for Visit Reason Comments Annual Exam WARREN OLSON 2008 w/ DELANO for ner ve damage OD, Hx: leukemia Encounter Details Date Type Department Care Team Description 02/13/2012 Office Visit Ophthalmology at [facility] C Clifford Amado [facility] [place] [address] [address] [address] [phone] OPHTH[address] PT. 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 Encouraged pt to use glasses for safety at all times. 2 yrs. documented in this encounter Nursing Notes 02/13/2012 10:05 AM EDT >> CLIFFORD AMADO MD Wed Feb 13, 2012 11:09 AM Problem: leukemia Location: od Duration: since 15yrs Rapidity of Onset: rapid Severity on scale of 1-10: loss of vision Condition:stable for last 10 yeasrs. Pain on a scale of 1-10: 0 Associated Symptoms: had leukemia infiltrate optic atrophy , followed by dr resendiz. Leukemia is in remission x 12 yrs. Left eye never affected . OD vision varies 20/80-20/70 per pt. Had radiation to the right eye/orbit >> José Migule Arias Wed Feb 13, 2012 10:37 AM Description:Patient presents with: Annual Exam - WARREN OLSON 2008 w/ DELANO (pt states hx of nerve damage OD), Hx: leukemia (pt reports radiation treatment to OD in 2008), denies pain/flashes/floaters, states no change with vision, diff vision in OD. Occ AT use. OD drifts out. Location: both eye Duration: 3 years since last visit Condition:No Change Pain:none documented in this encounter Plan of Treatment Not on filedocumented as of this encounter Visit Diagnoses Diagnosis Optic atrophy Optic atrophy, unspecified documented in this encounter Care Teams Customer Agent Relationship Specialty Start Date End Date Lesia Paiz MD PCP - General 09/19/10 09/16/17 [facility] [place] [address] documented as of this encounter
--- OUTSIDE RECORDS SUMMARY | 2022-05-11 02:17 | XMS_ITS | Encounter Summary ---
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 promyelocytes are not ed, a manual differential will be performed. Belen Gran Abs 0.02 0.00 - 0.04 x10(3)/[facility] LABORATORY Specimen Anatomical Collection Method Collection Time Receive d Time (Source) Location / / Volume Laterality Blood specimen 05/30/2019 5:46 PM 019 5:50 (specimen) EDT PM EDT Resulting Agency Comment Spec In Lab Keegan Velásquez MD HEMATOLOGY ORDERABLES Performing Organization Address City/State/[place] [address] (ABNORMAL) Hemogram (05/30/2019 5:46 PM EDT) Analysis Performed At Patho logist Time Signature WBC 10.4 (H) 4.0 - 9.5 [facility] x10(3)/[facility] LABORATORY RBC 5.02 4.58 - [facility] 5.[address] [facility] x10(6)/[facility] LABORATORY Hemoglobin 15.0 13.7 - [facility] 16.5 gm/dL [facility] LABORATORY Hematocrit 44.2 40.5 - [facility].5 % [facility] MCV 88.0 82.9 - [facility] 93.[address] [facility] LABORATORY MCH 29.9 27.5 - [facility] 32.1 pg [facility] LAB[facility]ATORY MCHC 33.9 32.0 - [facility] 35.7 gm/dL [facility] LABORATORY Platelets 427 (H) 145 - 357 [facility] x10(3)/[facility] LABORATORY RDWSD 38.3 36.0 - [facility] 45.[address] [facility] LABORATORY RDWCV 11.9 11.4 - [facility] 13.8 % [facility] LABORATORY MPV 9.6 7.6 - 12.9 [facility] LABORATORY nRBC % Auto 0.0 % [facility] LABORATORY nRBC Abs Auto 0.000 0.000 - [facility] 0.[address] [facility] x10(3)/[facility] LABORATORY Specimen Anatomical Collection Method Collection Time Receive d Time (Source) Location / / Volume Laterality Blood specimen 05/30/2019 5:46 PM 019 5:50 (specimen) EDT PM EDT Resulting Agency Comment Spec In Lab Keegan Velásquez MD HEMATOLOGY ORDERABLES Performing Organization Address City/[facility]/[place] [address] TSH [place] (05/30/2019 5:46 PM EDT) athologist Signature TSH 2.72 0.27 - 4.20 [facility] mcIU/mL [facility] LABORATORY Specimen Anatomical Collection Method Collection Time Receive d Time (Source) Location / / Volume Laterality Blood specimen 05/30/2019 5:46 PM 019 5:50 (specimen) EDT PM EDT Resulting Agency Comment Spec In Lab Jackie Fonseca MD CHEMISTRY ORDERABLES Performing Organization Address City/[facility]/[place] [address] Ethanol Level (05/30/2019 5:46 PM EDT) athologist Signature Ethanol Lvl <100 <=99 mg/L [facility] LABORATORY Comment: Greater than 800 mg/L (0.08%) should be considered intoxicated. 3400 to 4500 mg/L (0.34 - 0.45%) is cons idered severe intoxication. Greater than 5500 mg/L (0.55%) is usuall y fatal. Specimen Anatomical Collection Method Collection Time Receive d Time (Source) Location / / Volume Laterality Blood specimen 05/30/2019 5:46 PM 019 6:42 (specimen) EDT PM EDT Resulting Agency Comment Spec In Lab Jackie Fonseca MD CHEMISTRY ORDERABLES Performing Organization Address City/[facility]/[place] [address] (ABNORMAL) Acetaminophen level (05/30/2019 5:46 PM EDT) athologist Signature Acetamin Lvl <5 (L) 10 - 30 [facility] mg/L [facility] LABORATORY Comment: Levels >150 mg/L at 4 hours post ingesti on or >75 mg/L at 8 hours post ingestion are often an indication for N- Acetylcysteine. Specimen Anatomical Collection Method Collection Time Receive d Time (Source) Location / / Volume Laterality Blood specimen 05/30/2019 5:46 PM 019 5:50 (specimen) EDT PM EDT Resulting Agency Comment Spec In Lab Jackie Fonseca MD CHEMISTRY ORDERABLES Performing Organization Address [facility] [place] [address] Salicylate (05/30/2019 5:46 PM EDT) athologist Signature Salicylate Lvl <20 mg/L [facility] LAB[facility]ATORY Comment: Therapeutic Range: ??< 200 mg/L Arthritic Therapy: ??150-300 mg/L Toxic: ?> 350 mg/L ??Concentrations > 500 mg/L may be an i ndication for alkalinization of urine. Concentrations > 800 mg/L are often an i ndication for hemodialysis. Specimen Anatomical Collection Method Collection Time Receive d Time (Source) Location / / Volume Laterality Blood specimen 05/30/2019 5:46 PM 019 5:50 (specimen) EDT PM EDT Resulting Agency Comment Spec In Lab Jackie Fonseca MD CHEMISTRY ORDERABLES Performing Organization Address City/[facility]/[place] [address] (ABNORMAL) Hepatic Function Panel (05/30/2019 5:46 PM EDT) athologist Signature Total Protein 7.9 6.1 - 8.0 [facility] gm/dL [facility]OR[facility] Albumin 5.0 3.2 - 5.2 [facility] gm/dL [facility] AST 39 0 - 39 [place] unit/L [facility] ALT 83 (H) 0 - 55 [facility] unit/L [facility] LABOR[facility]ORY Alk Phos 92 40 - 130 [facility] CHERI unit/L [facility] LAB[facility] Total 0.6 0.2 - 1.3 [facility] Bilirubin mg/dL [facility] LABORATORY Bili, Direct 0.1 0.0 - 0.3 [facility] CHERI mg/dL [facility] LABORATORY Specimen Anatomical Collection Method Collection Time Receive d Time (Source) Location / / Volume Laterality Blood specimen 05/30/2019 5:46 PM 019 5:50 (specimen) EDT PM EDT Resulting Agency Comment Spec In Lab Jackie Fonseca MD CHEMISTRY ORDERABLES Performing Organization Address City/State/[place] [address] (ABNORMAL) Basic Metabolic Panel (non-fasting) (05/30/2019 5:46 PM EDT) athologist Signature Glucose Lvl 96 65 - 199 [facility] mg/dL [facility] LABORATORY Comment: Diabetes: >=200 mg/dL plus symp toms BUN 9 (L) 10 - 20 mg/dL [facility] LABORATORY Creatinine 1.07 0.80 - 1.50 mg/dL [facility] LABORATORY Sodium 140 135 - 145 mmol/L [facility] LABORATORY Potassium 3.7 3.5 - 5.0 mmol/L [facility] LABORATORY Comment: Please note: ??Patients with WBC >100,00 0 may have falsely elevated Potassium levels. ??For accurate Potassium quantif ication in these patients send serum separator tube (gold top) for subsequent determinations. ??Contact the Clinical Chemistry Laboratory if there are any qu estions. Chloride 101 98 - 107 mmol/L [facility] CO2 27 22 - 31 mmol/L [facility] Anion Gap 12 5 - 15 mmol/L [facility]OR[facility]ORY Calcium 9.7 8.5 - 10.5 mg/dL [facility] LABORATORY Estimated GFR 91 >=60 mL/min/1.73 m?? [facility] LABORATORY Comment: The eGFR was calculated using the CKD-EP I equation. As with all creatinine based estimates of kidney function, eGFR values calculated with the CKD-EPI equation are not accurate in patients wi th acute kidney failure, extremes of body mass or the acutely ill. http://[employer]/DHnkf eGFR 106 >=60 mL/min/1.73 m?? [facility] LABORATORY Comment: The eGFR was calculated using the CKD-EP I equation. As with all creatinine based estimates of kidney function, eGFR values calculated with the CKD-EPI equation are not accurate in patients wi th acute kidney failure, extremes of body mass or the acutely ill. http://[employer]/DHMCnkf Specimen Anatomical Collection Method Collection Time Receive d Time (Source) Location / / Volume Laterality Blood specimen 05/30/2019 5:46 PM 019 5:50 (specimen) EDT PM EDT Resulting Agency Comment Spec In Lab Jackie Fonseca MD CHEMISTRY ORDERABLES Performing Organization Address City/State/ZIP Code Phon e Number [place] [id number] THC (Marijuana), Urine Confirmation (05/30/2019 5:45 PM EDT) Component Value Ref Test Analysis Performed At [facility] Range Method Time Signature U THC Conf [facility] Test ? Result ?Flag ??Unit ?? RefValue [facility] Carboxy-THC Confirmation, U HO SPITAL ??Carboxy-THC- by GC/MS ?150 ? ng/mL ??Cutoff: 3.0 LABORATORY ??Carboxy-THC Interpretation ? Positive. ? ADDITIONAL INFORMATION ------ ?This report is intended for use in clinical monitoring and ?management of patients. ??It is not intended for use i n ?employment-related testing. ?This test was developed and its performance characteri stics ?determined by [facility] in a manner consistent with CLIA ?requirements. This test has not been cleared or approv ed by ?the U.S. Food and Drug Administration. ?Test Performed by: ?[facility] ?[address] [place] [address] Specimen Anatomical Collection Method Collection Time Receive d Time (Source) Location / / Volume Laterality Urine specimen 05/30/2019 5:45 PM 019 (specimen) EDT 11:08 AM EDT Resulting Agency Comment Spec In Lab Keegan Velásquez MD URINE ORDERABLES Performing Organization Address City/State/[place] [address] (ABNORMAL) Rapid Drug Screen w/ Confirmation, Urine (05/30/2019 5:45 PM EDT) [facility] Method Time Signature U Barbiturates None None [facility] Screen Detected Detected [facility] LABORATORY Comment: The barbiturate screen detects barbitura marie at concentrations >200 ng/mL. Note: Not all barbiturates cross-react equally with antibody used in this screen. A ? Presumptive Positive? result indicates that the screening result was positive but has not yet been confirmed by a highly-specific method. As with any screen, occasional false positive re sults from cross-reacting substances may occur. Not for Medico-Legal Purposes. U Benzodiazepines Screen None Detected None Detected [facility] LABORATORY Comment: The benzodiazepines screen detects benzo diazepines at concentrations >100 ng/mL. Not all benzodiazepines cross-bessie ct equally with antibody used in this screen. Due to the low dosage of clonaze tamir, false negatives may be obtained due to low concentration of clonazepam m etabolites. A ? Presumptive Positive? result indicates that the screening result was positive but has not yet been confirmed by a highly-specific method. As with any screen, occasional false positive re sults from cross-reacting substances may occur. Not for Medico-Legal Purposes. U Cocaine Screen None Detected None Detected [facility] LABORATORY Comment: The cocaine metabolites screen detects b enzoylecgonine (Cocaine Metabolite) at concentrations >150 ng/mL. A ? Presumptive Positive? result indicates that the screening result was positive but has not yet been confirmed by a highly-specific method. As with any screen, occasional false positive re sults from cross-reacting substances may occur. Not for Medico-Legal Purposes. U Methadone Metabolites None Detected None Detected [facility] LABORATORY Comment: The methadone metabolite screen detects EDDP (major methadone metabolite) at concentrations >100 ng/mL. A ? Presumptive Positive? result indicates that the screening result was positive but has not yet been confirmed by a highly-specific method. As with any screen, occasional false positive re sults from cross-reacting substances may occur. Not for Medico-Legal Purposes. U Opiate Screen None Detected None Detected [facility] LABORATORY Comment: The opiates screen detects opiates at co ncentrations >300 ng/mL. Please note that oxycodone, oxymorphone, fentanyl, tramadol, and other synthetic opioids are not detected by e opiate screen. A ? Presumptive Positive? result indicates that the screening result was positive but has not yet been confirmed by a highly-specific method. As with any screen, occasional false positive re sults from cross-reacting substances may occur. Not for Medico-Legal Purposes. U Cannabinoid Screen Presumptive Pos (A) None Detected [facility] LABORATORY Comment: The marijuana metabolites screen detects the THC metabolite (21-tju-4-carboxy-delta 9-THC) at concen trations >20 ng/mL. A ? Presumptive Positive? result indicates that the screening result was positive but has not yet been confirmed by a highly-specific method. As with any screen, occasional false positive re sults from cross-reacting substances may occur. Not for Medico-Legal Purposes. U Oxycodone Screen None Detected None Detected [facility] LABOR[facility]ORY Comment: The oxycodone screen detects oxycodone a nd oxymorphone at concentrations >100 ng/mL. A ? Presumptive Positive? result indicates that the screening result was positive but has not yet been confirmed by a highly-specific method. As with any screen, occasional false positive re sults from cross-reacting substances may occur. Not for Medico-Legal Purposes. U Buprenorphine Screen None Detected None Detected [facility] LABORATORY Comment: The buprenorphine screen detects bupreno rphine at concentrations >5 ng/mL. A ? Presumptive Positive? result indicates that the screening result was positive but has not yet been confirmed by a highly-specific method. As with any screen, occasional false positive re sults from cross-reacting substances may occur. Not for Medico-Legal Purposes. U Fentanyl Screen None Detected None Detected Jose [facility] LABORATORY Comment: The fentanyl screen detects fentanyl at concentrations >2 ng/mL. A ? Presumptive Positive? result indicates that the screening result was positive but has not yet been confirmed by a highly-specific method. As with any screen, occasional false positive re sults from cross-reacting substances may occur. Not for Medico-Legal Purposes. U Tricyclics Screen None Detected None Detected SARI VAZ [facility] LABORATORY Comment: The tricyclics screen detects tricyclic antidepressants at concentrations >150 ng/mL. Not all tricyclics cross-react eq ually with the antibody used in this screen. A ? Presumptive Positive? result indicates that the screening result was positive but has not yet been confirmed by a highly-specific method. As with any screen, occasional false positive re sults from cross-reacting substances may occur. Not for Medico-Legal Purposes. U Ethanol Screen None Detected None Detected [facility] LABORATORY Comment: This urine ethanol assay detect s ethanol at concentrations >/= 100 mg/L. U Amphetamines Screen None Detected None Detected [facility] LABOR[facility]ORY Comment: The amphetamine screen detects d-ampheta mine and d-methamphetamine at concentrations >300 ng/mL. A ? Presumptive Positive? result indicates that the screening result was positive but has not yet been confirmed by a highly-specific method. As with any screen, occasional false positive re sults from cross-reacting substances may occur. Not for Medico-Legal Purposes. U Adulterants Screen None Detected None Detected Jose [facility] LABORATORY Comment: No adulteration or dilution of this urin e sample was detected. All urine samples submitted for urine drugs of abu se analysis are tested for creatinine concentration, pH, and for the presence of oxidants, nitrites, and chromate. Specimen Anatomical Collection Method Collection Time Receive d Time (Source) Location / / Volume Laterality Urine specimen 05/30/2019 5:45 PM 019 5:58 (specimen) EDT PM EDT Resulting Agency Comment Spec In Lab Keegan Velásquez MD CHEMISTRY ORDERABLES Performing Organization Address City/[facility]/[place] [address] Rapid Drug Screen, Urine (ZOYA Request) (05/30/2019 5:45 PM EDT) [facility] Demeure Method Time Signature ZOYA Conf Yes [facility] LABORATORY ZOYA Requested See Comment [facility] LABORATORY Comment: Refer to Rapid Drug Screen w/ C onfirmation, Urine for results. Specimen Anatomical Collection Method Collection Time Receive d Time (Source) Location / / Volume Laterality Urine specimen 05/30/2019 5:45 PM 019 5:58 (specimen) EDT PM EDT Resulting Agency Comment Spec In Lab Jackie Fonseca MD URINE ORDERABLES Performing Organization Address City/[facility]/[place] [address] Urinalysis with reflex Culture (05/30/2019 5:44 PM EDT) [facility] Demeure Method Time Signature Glucose UA Negative Negative [facility] mg/dL [facility] LABORATORY Protein UA Negative Negative [facility] mg/dL [facility] LAB[facility]ORY Bilirubin UA Negative Negative [facility] mg/dL [facility] LAB[facility]ORY Comment: Clinical correlation required for positi ve Urine Bilirubin results as false positive may occur with some drugs and d rug related products. If a false positive is suspected a serum total bili castañeda should be considered if clinically indicated. Urobilinogen UA Normal Normal mg/dL [facility] LABORATORY pH UA 6.0 5.0 - 8.0 [facility] LABORATORY Blood UA Negative Negative mg/dL [facility] Ketones UA Negative Negative mg/dL [facility] Nitrite UA Negative Negative [facility]ORY Leukocytes UA Negative Negative [facility] LABORATORY Appearance UA Clear Clear [facility] LABORATORY Spec [place] UA 1.006 1.002 - 1.030 [facility] LABORATORY Color UA Straw Yellow [facility] LABORATORY Culture Reflexed No [facility] LABORATORY Specimen Anatomical Collection Method Collection Time Receive d Time (Source) Location / / Volume Laterality First stream 05/30/2019 5:44 PM 9 5:58 urine sample EDT PM EDT (specimen) Resulting Agency Comment Spec In Lab Jackie Fonseca MD URINE ORDERABLES Performing Organization Address City/State/[facility] [place] [address] documented in this encounter Visit Diagnoses Diagnosis Anxiety Anxiety state, unspecified documented in this encounter Care Teams Remote Recruiter Relationship Specialty Start Date End Date Oanh Yang, VIDEO GAME TECHNICIAN PCP - General Family Medicine 09/17/17 [address] [place] [address] documented as of this encounter
--- OUTSIDE RECORDS SUMMARY | 2022-05-11 02:17 | XMS_ITS | Encounter Summary ---
:1985 Author Organization [facility] [place] [address] Care Team Providers Name Role Phone Oanh Yang Jessica DOUGHERTY Primary Care Provider Reason for Referral Diagnostic Test (Routine) - Closed Specialty Diagnoses / Procedures Referred By Contact Refer red To Contact Cardiology Diagnoses Leukemia, acute lymphoid, in remission Fatigue, unspecified type Taco Chaudhary MD [facility] Non-Inv Card Lab Procedures Echocardiogram Transthoracic(Leb) [facility] HEMATOLOGY/ONCOLOGY DEPT. [address] [phone] Fax: Referral ID Status Reason Start Date Expiration Date Visits V isits Requested Authorized [id number] Closed Specialty 07/13/2018 07/13/2019 1 1 Service Requested Reason for Visit Diagnostic Test (Routine) - Closed Specialty Diagnoses / Procedures Referred By Contact Refer red To Contact Cardiology Diagnoses Leukemia, acute lymphoid, in remission Fatigue, unspecified type Taco Chaudhary MD [facility] Non-Inv Card Lab Procedures Echocardiogram Transthoracic(Leb) [facility] HEMATOLOGY/ONCOLOGY DEPT. [id number] [place] [address] Fax: Referral ID Status Reason Start Date Expiration Date Visits V isits Requested Authorized [id number] Closed Specialty 07/13/2018 07/13/2019 1 1 Service Requested Encounter Details Date Type Department Care Team Description 07/25/2018 Hospital Encounter Non-Invasive Taco Chaudhary ukemia, acute lymphoid, in remission; Cardiology Lab MD [place] Fatigue, unspecified type [facility] HEMATOLOGY/ONCOLOGY Drive DEPT. [place], [place] [phone] Social History Tobacco Use Types Packs/Day Years [...] Name Priority Date/Time Associated Comments Diagnosis ECHOCARDIOGRAM COMPLETE Routine 07/25/2018 11:01 Leukemia, acu te Results for this W CONTRAST AM EDT lymphoid, in procedure are i n remission the results Fatigue, section. unspecified type documented in this encounter Results ECHOCARDIOGRAM COMPLETE W CONTRAST (07/25/2018 11:01 AM EDT) P athologist Signature EF 55 [facility]ART[facility] SYSTEM Specimen (Source) Anatomical Location Collection Method / Collectio n Time Received Time / Laterality Volume 07/25/2018 Narrative HEART[facility] SYSTEM - 07/25/2018 11:24 AM ED T Procedure: ?Transthoracic Echocardiogram Patient: ?NIHARIKA Gill ?(Age): 1985(32y) Med Rec#: ? [id number] ?Sex: ?M ? Site Loc: ? [facility] ?Ht / Wt: ??170(cm)/98(kg) Pt. Loc: ?Echo Lab ?BSA: ?2.09 Study Date: ?? 07/25/2018 ?Pt. Type: Outpatient Tape: ? Referring: Taco Chaudhary Reading: Paul Grewal ([id number]) Appointment Clerk: Jasbir Manrique Diagnosis: *Acute lymphoblastic leukemia, in [...] E-wave Vmax ?0.6 ?m/sec ? MV deceleration [id number] ?msec ? MV A-wave Vmax ?0.6 ?m/sec [...] ? Mid-Inferior ?Normal ? Mid-Inferoseptal ?Normal ? [place]-Septal ? Normal ? [place]-Anterior ? Normal ? [place]-Lateral ?Normal ? [place]-Inferior ? Normal ? [place]-Tip ?Normal ? This report has been electronically sign ed by: _ Paul Grewal MD ? 07/25/2018 11:24: 33 Images reviewed and interpretation keyanna ied [facility] Cardiac Ultrasound Laboratory Procedure Note Paul Grewal MD - 07/25/2018 Procedure: Transthoracic Echocardiogram Patient: NIHARIKA JEFFERSON(Age): 1984(32y) Med Rec#: [id number] Sex: M [place] Loc[place] [facility] Ht / Wt: 170(cm)/98(kg) Pt. Loc: Echo Lab BSA: 2.09 Study Date: 07/25/2018 Pt. Type: Outpati ent Tape: Referring: Taco Chaudhary Reading: Paul Grewal ([id number]) Appointment Clerk: Jasbir Manrique Diagnosis: *Acute lymphoblastic leukemia, in [...] MV E-wave Vmax 0.6 m/sec MV deceleration [id number] msec MV A-wave Vmax 0.6 m/sec MV [...] Normal Mid-Posterolateral Normal Mid-Inferior Normal Mid-Inferoseptal Normal [place]-Septal Normal [place]-Anterior Normal [place]-Lateral Normal [place]-Inferior Normal [place]-Tip Normal This report has been electronically sign ed by: _ Paul Grewal MD 07/25/2018 11:24:33 Images reviewed and interpretation verif ied [facility] Cardiac Ultrasound Laboratory Taco Chaudhary MD ECHO ORDERABLES Performing Organization Address City/State/ZIP Code Phon e Number HEART[facility] SYSTEM documented in this encounter Visit Diagnoses Diagnosis Leukemia, acute lymphoid, in remission Acute lymphoid leukemia in remission Fatigue, unspecified type documented in this encounter Administered Medications Inactive Administered Medications - up to 3 most recent administrations Medication Order MAR Action Action Date Dose Rate Site perflutren protein-A microspheres Given 07/25/2018 11:02 AM EDT 3 mLs (OPTISON) 0.22 mg/mL injection 3 mL 3 mL, Intravenous, ONCE PRN, 1 dose, Starting on Sat07/25/18 at 1101, Until Sat07/25/18 at 1102, for enhancement of sub-optimal echo images, Echo Lab (Intra-Procedure), Routine documented in this encounter Care Teams Senior Administrator Support Relationship Specialty Start Date End Date Oanh Yang, OPERATING ROOM TECH PCP - General Family Medicine 09/17/17 [address] [place] [address] documented as of this encounter
--- OUTSIDE RECORDS SUMMARY | 2022-05-11 02:17 | XMS_ITS | Encounter Summary ---
:1985 Author Organization [facility] Address [facility] [place] [address] Care Team Providers Name Role Phone Lesia Paiz MD Primary Care Provider Reason for Visit Reason Comments Eye Problem Optic atrophy,OD Encounter Details Date Type Department Care Team Description 01/05/2015 Office Visit Ophthalmology [facility] Jamia Perry Optic atrophy; [facility] J, OD Exotropia, right eye; Drive [facility] PSC (posterior subcapsular c ataract), right; [place] [address] CENTER Hyperopia with astigmatism, bilateral [phone] OPHTHALMOLOGY DEPT. [place], [place] [address] Social History Tobacco Use Types [...] as of this encounter Progress Notes Jamia Perry, OD - 01/05/2015 2:45 PM EDT Chele BLAIR is a 29 y.o. male who had concerns including Eye Problem. 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 Mild Rx. Needs to wear for protection. Assessment: Encounter Diagnoses Name Primary? Optic atrophy ??? Exotropia, right eye ??? PSC (posterior subcapsular cataract), right ??? Hyperopia with astigmatism, bilateral Plan: 1)Refractive Error - MRx given to patient. 2)monitor Follow up: CEE 2 years. Eyeglass Final Rx Eyeglass Final Rx Sphere Cylinder [place] Right -0.75 +1.25 015 Left [place] +0.75 165 Expiration Date: 01/05/2017 documented in this encounter Plan of Treatment Not on filedocumented as of this encounter Visit Diagnoses Diagnosis Optic atrophy Optic atrophy, unspecified Exotropia, right eye Exotropia, unspecified PSC (posterior subcapsular cataract), ri ght Unspecified cataract Hyperopia with astigmatism, bilateral documented in this encounter Care Teams Dimension Stone Quarry Supervisor Relationship Specialty Start Date End Date Lesia Paiz MD PCP - General 09/19/10 09/16/17 [facility] [place] [address] documented as of this encounter
--- OUTSIDE RECORDS SUMMARY | 2022-05-11 02:17 | XMS_ITS | Encounter Summary ---
:1985 Author Organization [facility] [place] [address] Care Team Providers Name Role Phone Oanh Yang FARHAT Primary Care Provider Encounter Details Date Type Department Care Team Description 06/12/2019 Hospital Encounter Hematology and Leukemi a, acute lymphoid, in remission; [place] [facility] [place] [address] Social History Tobacco Use Types Packs/Day Years Used Date Former Smoker Quit: 05/12/20 Smokeless Tobacco: Never Used Comments: marijuana (few [...] Procedure Name Priority Date/Time Associated Comments Diagnosis IMMUNOGLOBULINS, STAT 06/12/2019 8:51 AM Leukemia, acute Re sults for this QUANTITATIVE EDT lymphoid, in procedure are i n remission the results Fatigue, section. unspecified type HEMOGRAM Routine 06/12/2019 8:51 AM Leukemia, acute Result s for this EDT lymphoid, in procedure are i n remission the results Fatigue, section. unspecified type DIFFERENTIAL, Routine 06/12/2019 8:51 AM Leukemia, acute Resul ts for this AUTOMATED EDT lymphoid, in procedure are i n remission the results Fatigue, section. unspecified type CBC (WITH DIFF) Routine 06/12/2019 8:51 AM Leukemia, acute EDT lymphoid, in remission Fatigue, unspecified type TSH Routine 06/12/2019 8:51 AM Leukemia, acute Result s for this EDT lymphoid, in procedure are i n remission the results Fatigue, section. unspecified type COMPREHENSIVE Routine 06/12/2019 8:51 AM Leukemia, acute Resul ts for this METABOLIC PANEL EDT lymphoid, in procedure ar e in (NON-FASTING) remission the results Fatigue, section. unspecified type documented in this encounter Results Differential, Automated (06/12/2019 8:51 AM EDT) P athologist Signature Neutrophils % 38.6 % [facility] Neutr Abs (ANC) 2.76 1.70 - [facility] [address] [facility] x10(3)/[facility] LABORATORY Lymphocytes % 42.8 % [facility] Lymphocytes Abs 3.1 0.9 - 3.2 [facility] x10(3)/[facility] LABORATORY Monocytes % 13.0 % [facility] Monocyte Abs 0.9 0.3 - 0.9 [facility] x10(3)/[facility] LABORATORY Eosinophils % 4.0 % [facility] Eosinophils Abs 0.3 0.0 - 0.4 [facility] x10(3)/[facility] LABORATORY Basophils % 1.5 % [facility] Basophils Abs 0.1 0.0 - 0.1 [facility] x10(3)/[facility] LABORATORY Immature Gran % 0.10 % [facility] Comment: Immature granulocytes(IG's)percentage an d absolute count will include metamyelocytes, myelocytes, and promyelo cytes. Blood smears from CBCs yielding IG's will be scanned manually for concor dance. If this scan disagrees with the automated IG or if promyelocytes are not ed, a manual differential will be performed. [place] Gran Abs 0.01 0.00 - 0.04 x10(3)/[facility] LABORATORY Specimen Anatomical Collection Method Collection Time Receive d Time (Source) Location / / Volume Laterality Blood specimen 06/12/2019 8:51 AM 019 9:10 (specimen) EDT AM EDT Resulting Agency Comment Spec In Lab Taco Chaudhary MD HEMATOLOGY ORDERABLES Performing Organization Address City/State/[place] [address] (ABNORMAL) Hemogram (06/12/2019 8:51 AM EDT) P athologist Signature WBC 7.2 4.0 - 9.5 [facility] x10(3)/[facility] LABORATORY RBC 5.33 4.58 - [facility] [address] [facility] [facility] x10(6)/[facility] LABORATORY Hemoglobin 15.7 13.7 - [facility] gm/dL [facility] Hematocrit 47.3 40.5 - [facility] 48.5 % [facility] MCV 88.7 82.9 - [facility] 93.1 [facility] LABORATORY MCH 29.5 27.5 - [facility] 32.1 pg [facility] MCHC 33.2 32.0 - [facility] 35.7 gm/dL [facility] Platelets 471 (H) 145 - 357 [facility] LABORATORY RDWSD 38.1 36.0 - [facility] 45.0 [facility] RDWCV 11.9 11.4 - [facility] 13.8 % [facility] MPV 10.2 7.6 - 12.9 [facility] LABORATORY nRBC % Auto 0.0 % [facility] nRBC Abs Auto 0.000 0.000 - [facility] [address] [facility] [facility] x10(3)/[facility] LABORATORY Specimen Anatomical Collection Method Collection Time Receive d Time (Source) Location / / Volume Laterality Blood specimen 06/12/2019 8:51 AM 019 9:10 (specimen) EDT AM EDT Resulting Agency Comment Spec In Lab Taco Chaudhary MD HEMATOLOGY ORDERABLES Performing Organization Address City/State/[place] [address] (ABNORMAL) Comprehensive metabolic panel (non-fasting) (06/12/2019 8:51 AM EDT) athologist Signature Glucose Lvl 110 65 - 199 [facility] mg/dL [facility] Comment: Diabetes: >=200 mg/dL plus symp toms BUN 15 10 - 20 mg/dL [facility] Creatinine 1.16 0.80 - 1.50 mg/dL [facility] Sodium 143 135 - 145 mmol/L [facility] Potassium 3.5 3.5 - 5.0 mmol/L [facility] Comment: Please note: ??Patients with WBC >100,00 0 may have falsely elevated Potassium levels. ??For accurate Potassium quantif ication in these patients send serum separator tube (gold top) for subsequent determinations. ??Contact the Clinical Chemistry Laboratory if there are any qu estions. Chloride 103 98 - 107 mmol/L [facility] CO2 28 22 - 31 mmol/L [facility] Anion Gap 12 5 - 15 mmol/L [facility] Calcium 9.6 8.5 - 10.5 mg/dL [facility] Total Protein 8.1 (H) 6.1 - 8.0 gm/dL [facility] Albumin 5.0 3.2 - 5.2 gm/dL [facility] AST 43 (H) 0 - 39 unit/L [facility] ALT 132 (H) 0 - 55 unit/L [facility] Alk Phos 102 40 - 130 unit/L [facility] Total Bilirubin 0.7 0.2 - 1.3 mg/dL [facility] Estimated GFR 83 >=60 mL/min/1.73 m?? [facility] Comment: The eGFR was calculated using the CKD-EP I equation. As with all creatinine based estimates of kidney function, eGFR values calculated with the CKD-EPI equation are not accurate in patients wi th acute kidney failure, extremes of body mass or the acutely ill. http://[employer]/[facility] [place] eGFR 96 >=60 mL/min/1.73 m?? [facility] Comment: The eGFR was calculated using the CKD-EP I equation. As with all creatinine based estimates of kidney function, eGFR values calculated with the CKD-EPI equation are not accurate in patients wi th acute kidney failure, extremes of body mass or the acutely ill. http://[employer]/[facility] [place] Specimen Anatomical Collection Method Collection Time Receive d Time (Source) Location / / Volume Laterality Blood specimen 06/12/2019 8:51 AM 019 9:10 (specimen) EDT AM EDT Resulting Agency Comment Spec In Lab Taco Chaudhary MD CHEMISTRY ORDERABLES Performing Organization Address City/State/[place] [address] Immunoglobulins, Quantitative (06/12/2019 8:51 AM EDT) athologist Signature IgG 1,143 700 - 1,600 [facility] mg/dL [facility] Comment: Pediatric Reference Intervals obtained f rom the Caliper Reference Interval project. http://www.sickRuckus Media Groupds.ca/caliperp roject/index.html IgA 352 70 - 400 mg/dL [facility] IgM 88 40 - 230 mg/dL [facility] Specimen Anatomical Collection Method Collection Time Receive d Time (Source) Location / / Volume Laterality Blood specimen 06/12/2019 8:51 AM 08/16/2 019 9:10 (specimen) EDT AM EDT Resulting Agency Comment Spec In Lab Taco Chaudhary MD CHEMISTRY ORDERABLES Performing Organization Address City/State/ZIP Code Phon e Number [address] TSH (06/12/2019 8:51 AM EDT) P athologist Signature TSH 2.59 0.27 - 4.20 ALEJANDRO ALONZO mcIU/mL [facility] Specimen Anatomical Collection Method Collection Time Receive d Time (Source) Location / / Volume Laterality Blood specimen 06/12/2019 8:51 AM 019 9:10 (specimen) EDT AM EDT Resulting Agency Comment Spec In Lab Taco Chaudhary MD CHEMISTRY ORDERABLES Performing Organization Address City/[facility]/ZIP Code Phon e Number [address] documented in this encounter Visit Diagnoses Diagnosis Leukemia, acute lymphoid, in remission Acute lymphoid leukemia in remission Fatigue, unspecified type documented in this encounter Care Teams Quarantine Inspector Relationship Specialty Start Date End Date Oanh Yang APRN PCP - General Family Medicine 09/17/17 [address] [place] [address] documented as of this encounter
--- OUTSIDE RECORDS SUMMARY | 2022-05-11 02:17 | XMS_ITS | Encounter Summary ---
:1985 Author Organization [facility] [place] [address] Care Team Providers Name Role Phone Oanh Yang MECHANICAL PROCESS ENGINEER Primary Care Provider Encounter Details Date Type Department Care Team Description 07/11/2018 Notes Only Care Management Destinee Garcias, [place] [address] Social History Tobacco Use Types Packs/Day [...] documented as of this encounter Progress Notes Destinee Garcias MSW - 07/11/2018 4:01 PM EDT SW paged by Shelbi in [facility]. Chele, Pt of Dr. Chaudhary, said he was referred for gas card. I provided [facility] gas card. S/O Toya Tovar presented as distraught with pressured speech about her children being taken by [facility] 3 yrs ago and adopted out. I will call [place] [facility] for referral. documented in this encounter Plan of Treatment Not on filedocumented as of this encounter Visit Diagnoses Not on filedocumented in this encounter Care Teams Wheel Of Fortune Dealer Relationship Specialty Start Date End Date Oanh Yang APRN PCP - General Family Medicine 09/17/17 [address] [place] [address] documented as of this encounter
--- OUTSIDE RECORDS SUMMARY | 2022-05-11 02:17 | XMS_ITS | Encounter Summary ---
:1985 Author Organization [facility] [place] [address] Care Team Providers Name Role Phone Oanh Yang FARHAT Primary Care Provider Reason for Referral Consultation (Routine) - Closed Specialty Diagnoses / Procedures Referred By Contact Refer red To Contact Neurosurgery Diagnoses Meningioma 33 YOM with h/o childhood ALL, treatment for which included AUDIO VISUAL DIRECTOR XRT, now with apparent right parietal menigioma on CT. F/U MRI Ordered. Taco Chaudhary [facility] [address] [place] [address] HEMATOLOGY/ONCOLOGY Phone: [place] [address] Referral ID Status Reason Start Date Expiration Date Visits V isits Requested Authorized [id number] Closed Consult, 06/15/2019 06/14/2020 1 1 Test & Treat Consultation (Routine) - Specialty Diagnoses / Procedures Referred By Contact Refer red To Contact Hematology and Diagnoses Anxiety Taco Chaudhary [facility] On[facility] HEMATOLOGY/ONCOLOGY [place], [place] DEPT. [address] [place] [address] Referral ID Status Reason Start Date Expiration Date Visits V isits Requested Authorized [id number] Consult, 06/15/2019 06/14/2020 1 1 Test & Treat Diagnostic Test (Routine) - Closed Specialty Diagnoses / Procedures Referred By Contact Refer red To Contact Radiology Diagnoses Meningioma Taco Chaudhary MD [facility] Rad Mri Procedures MRI Brain wwo Contrast (Generic) [facility] HEMATOLOGY/[place] [address] [place] [address] Referral ID Status Reason Start Date Expiration Date Visits V isits Requested Authorized [id number] Closed Specialty 06/15/2019 06/14/2020 1 1 Service Requested Reason for Visit Reason Comments Follow-up Encounter Details Date Type Department Care Team Description 06/12/2019 Office Visit Hematology and Ray Chaudhary MD [facility] DR HEMATOLOGY/[place] [address] Meningioma (Primary Dx); Oncology at [facility] Claudia Pantoja, [facility] DR HEMATOLOGY/[place] [address] Anxiety [facility] Sandra Duff, [facility] DR [place]EMATOLOGY[place] [address] Cori Moyer MD [facility] DR HEMATOLOGY/[place] [address] [place] [address] Social History Tobacco Use Types [...] Sign Reading Time Taken Comments Blood Pressure 142/98 06/12/2019 9:38 AM EDT Pulse 83 06/12/2019 9:38 AM EDT Temperature 37.2 ??C (99 ??F) 06/12/2019 9:38 AM EDT Respiratory Rate 18 06/12/2019 9:38 AM EDT Oxygen Saturation 100% 06/12/2019 9:38 AM EDT Inhaled Oxygen Concentration - - Weight 92.1 kg (203 lb) 06/12/2019 9:38 AM EDT Height 170 cm (5' 6.93) 06/12/2019 9:38 AM EDT Body Mass Index 31.86 06/12/2019 9:38 AM EDT documented in this encounter Progress Notes Taco Chaudhary MD - 06/12/2019 9:30 AM EDT HEMATOLOGY/BMT CONSULTATION VISIT NOTE CHIEF COMPLAINT: Chele Bundy is a 33 y.o. male referred by Oanh Yang APRN for evaluation of h/o childhood leukemia. Data Review (From Oanh Yang APRN and eDH and CIS) Following information from Pj's last visit with Pediatric Oncology (Dr. 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 Read as probable right parietal meningioma 05/30/19 [facility] ER for anxiety - HISTORY OF PRESENT ILLNESS Chele Bundy is seen today in follow-up for Nena which was originally diagnosed and treated in [address]. [address] has been scheduled for a yearly f/u visit later this year, today's visit was requested due to recent abnormal head CT showing possible meningioma. Pj says that he began to feel anxiety on late February. Alprazolam prn started by the local ER has helped and was started on fluoxatine by his PCP. He has been to the ER ~9 times since the Spring. Feeling much better this week. Says that his chroniclow-level anxiety got much worse when he stopped smoking marijuana in the Spring. He stopped the marijuana because it was making him feel cloudy. Has been on Lyrica, gabapentin, zoloft, busparone, Zyprexa as well as other psychiatric meds but they have been either ineffective or had bad side effects. Also now seeing a counselor for his anxiety for the last 2-3 weeks - Pj feels this is helping. Anxiety sx include sweating, rapid HR, feels he can't catch his breath (Mom checks his home O2 and it has been normal), lack of appetite (recently with ~20 lb weight loss). Trying to find a new psychiatrist. Has a f/u with Neurology - Dr. Maxwell. 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 Chronic Sinusitis: allergies Dry Mouth: Only with marijuana Dental Abnormalities: Has had some tooth fractures that have needed fillings Mental Health Disorders/Risky Behavior: anxiety, as above SH Tobacco - none for almost 3 years; no marijuana since ~ January 2019. ETOH - none Occupation - on disability due to leukemia treatment and brain trauma REVIEW OF SYSTEMS Constitutional --Energy level: poor --Pain: chronic back pain - unchanged --Fevers/chills/sweats: No --Unexpected weight loss or gain: [...] R41.89 ??? PSC (posterior subcapsular cataract), right [id number] ??? Exotropia, right eye H50.10 ??? Hyperopia of left eye with astigmatism H52.02, H52.202 ??? Fatigue R53.83 MEDICATIONS Current Outpatient Medications on File Prior to Visit Medication Sig Dispense Refill ??? ALPRAZolam (XANAX) 0.25 mg Tablet Take 0.25 mg by mouth daily. 0 ??? FLUoxetine (PROZAC) 20 mg Capsule Take 20 mg by mouth daily. 0 ??? UNABLE TO FIND CBD oil ??? UNABLE TO FIND Marijuana No current facility-administered medications on file prior to visit. ALLERGIES/ADR Allergies Allergen Reactions ??? Hydroxacen [Hydroxyzine Hcl] [...] Hx PHYSICAL EXAM VITAL SIGNS: Blood pressure (!) 142/98, pulse 83, temperature 37.2 ??C (99 ??F), temperature source Temporal, resp. rate 18, height 170 cm (5' 6.93), weight 92.1 kg (203 lb), SpO2 100 %. GENERAL: Chele Bundy is an anxious-appearing 33 y.o. male in no acute distress. ENT: [...] and oriented to person, place and time. CN 2-12 intact except 2-3 beats later nystagmus bilaterally and disconjugate gaze with right eye. LABORATORY Results for CHELE BUNDY ( ) as of 06/15/2019 14:06 Ref. Range 06/12/2019 WBC Latest Ref Range: 4.0 - 9.5 x10(3)/mcL 7.2 RBC Latest Ref Range: 4.58 - 5.54 x10(6)/mcL 5.33 Hemoglobin Latest Ref Range: 13.7 - 16.5 gm/dL 15.7 Hematocrit Latest Ref Range: 40.5 - 48.5 % 47.3 MCV Latest Ref Range: 82.9 - 93.1 fL 88.7 MCH Latest Ref Range: 27.5 - 32.1 pg 29.5 MCHC Latest Ref Range: 32.0 - 35.7 gm/dL 33.2 RDWSD Latest Ref Range: 36.0 - 45.0 fL 38.1 RDWCV Latest Ref Range: 11.4 - 13.8 % 11.9 Platelets Latest Ref Range: 145 - 357 x10(3)/mcL 471 (H) MPV Latest Ref Range: 7.6 - 12.9 fL 10.2 nRBC % Auto Latest Units: % 0.0 nRBC Abs Auto Latest Ref Range: 0.000 - 0.000 x10(3)/mcL 0.000 Neutr Abs (ANC) Latest Ref Range: 1.70 - 6.10 x10(3)/mcL 2.76 Neutrophils % Latest Units: % 38.6 Immature Gran % Latest Units: % 0.10 Lymphocytes % Latest Units: % 42.8 Monocytes % Latest Units: % 13.0 Eosinophils % Latest Units: % 4.0 Basophils % Latest Units: % 1.5 Belen Gran Abs Latest Ref Range: 0.00 - 0.04 x10(3)/mcL 0.01 Lymphocytes Abs Latest Ref Range: 0.9 - 3.2 x10(3)/mcL 3.1 Monocyte Abs Latest Ref Range: 0.3 - 0.9 x10(3)/mcL 0.9 Eosinophils Abs Latest Ref Range: 0.0 - 0.4 x10(3)/mcL 0.3 Basophils Abs Latest Ref Range: 0.0 - 0.1 x10(3)/mcL 0.1 Sodium Latest Ref Range: 135 - 145 mmol/L 143 Potassium Latest Ref Range: 3.5 - 5.0 mmol/L 3.5 Chloride Latest Ref Range: 98 - 107 mmol/L 103 CO2 Latest Ref Range: 22 - 31 mmol/L 28 Anion Gap Latest Ref Range: 5 - 15 mmol/L 12 BUN Latest Ref Range: 10 - 20 mg/dL 15 Creatinine Latest Ref Range: 0.80 - 1.50 mg/dL 1.16 eGFR Latest Ref Range: >=60 mL/min/1.73 m?? 83 eGFR Latest Ref Range: >=60 mL/min/1.73 m?? 96 Glucose Lvl Latest Ref Range: 65 - 199 mg/dL 110 Calcium Latest Ref Range: 8.5 - 10.5 mg/dL 9.6 Total Protein Latest Ref Range: 6.1 - 8.0 gm/dL 8.1 (H) Albumin Latest Ref Range: 3.2 - 5.2 gm/dL 5.0 Total Bilirubin Latest Ref Range: 0.2 - 1.3 mg/dL 0.7 Alk Phos Latest Ref Range: 40 - 130 unit/L 102 AST Latest Ref Range: 0 - 39 unit/L 43 (H) ALT Latest Ref Range: 0 - 55 unit/L 132 (H) IgG Latest Ref Range: 700 - 1,600 mg/dL 1,143 IgA Latest Ref Range: 70 - 400 mg/dL 352 IgM Latest Ref Range: 40 - 230 mg/dL 88 TSH Latest Ref Range: 0.27 - 4.20 mcIU/mL 2.59 RADIOLOGY - Outside CT scan personally reviewed. ASSESSMENT & PLANS 1. ALL -Chele is now approximately 27 years status post his original diagnosis of acute lymphocyticleukemia. After an early relapse he has been in complete remission for over 2 decades. Despite this good long-term response of his leukemia, he continues to suffer multiple long-term sequelae of his therapy. These include his anxiety, claustrophobia, bone pain, vision disorders and possibly fragility of his teeth. In addition Chele's inability to work also is likely due to his therapy for ALL. --Based on current history, exam and labs there is nothing to suggest recurrence of Pj's ALL or another hematologic malignancy. 2. Anxiety - This seems to have been a long-term issue for Chele that has worsened recently - possibly due to stopping marijuana use and now perhaps made worse by discovery of possible meningioma. He is now under the car of a new counselor locally. Had been hoping for an appointment with Psychiatry but no appointments available for many weeks. --We discussed possibility of seeing on of our [facility] Psychiatry team. Pj was very positive about this. 3. Possible Meningioma - it is not uncommon for meningioma to occur this far out from AUDIO VISUAL DIRECTOR XRT for ALL. --We discussed MRI scan and referral to Neurosurgery for evaluation and Pj was agreeable to this plan. Also discussed with Neurosurgery consult resident who agreed with the plan. Summary of Plans 1. [facility] Psychiatry referral placed 2. Order for brain MRI w/wo contrast placed 3. Neurosurgery referral placed Taco Chaudhary MD Division of Hematology and Blood & Marrow Transplant [facility] documented in this encounter Plan of Treatment Scheduled Referrals Name Type Priority Associated Order Schedule Diagnoses Referral to [facility] Outpatient Referral Routine Anxiety Orde red: Psychiatry ([facility] Only) Referral to Outpatient Referral Routine Meningioma Ordered: Neurosurgery 06/15/2019 documented as of this encounter Results MRI Brain [...] ? Electronically signed by: Franco Contreras MD, [facility] ([phone]), at 07/10/2019 12:08 PM Narrative 07/10/2019 12:08 PM EDT EXAMINATION: MRI BRAIN WWO CONTRAST (GENERIC) CLINICAL HISTORY: 33 YOM with h/o childh ood ALL with therapy that included AUDIO VISUAL DIRECTOR XRT. Recently had Head CT that showed [...] childh ood ALL with therapy that included AUDIO VISUAL DIRECTOR XRT. Recently had Head CT that showed p robable right parietal meningioma. CT scan has been pushed to eD. MRI to bett er define abnormality. Patient does have issues [...] below. Electronically signed by: Franco Contreras MD, [facility] ([phone]), at 07/10/2019 12:08 PM Taco Chaudhary MD IMG MRI ORDERABLES documented in this encounter Visit Diagnoses Diagnosis Meningioma - Primary Benign neoplasm of cerebral meninges Anxiety Anxiety state, unspecified Meningioma Benign neoplasm of cerebral meninges documented in this encounter Care Teams Gold Nib Grinder Relationship Specialty Start Date End Date Oanh Yang, UNEMPLOYMENT INSURANCE DIRECTOR PCP - General Family Medicine 09/17/17 [address] [place] [address] documented as of this encounter
--- OUTSIDE RECORDS SUMMARY | 2022-05-11 02:17 | XMS_ITS | Encounter Summary ---
:1985 [place] [address] Care Team Providers Name Role Phone Oanh Yang FARHAT Primary Care Provider Encounter Details Date Type Department Care Team Description 02/14/2018 Telephone Pediatric Oncology a [facility] Cassidy Romano MD [facility] [place] [address] PEDIATRICS [phone] [place], [place] [address] (Wo rk) Social History Tobacco [...] this encounter Miscellaneous Notes Telephone Encounter - Deena Newsome - 02/14/2018 9:19 AM EDT Toya Tovar (Significant Other) calling to schedule an appointment (old referral for a follow up) with Dr. Romano. Would like the appointment in the first two weeks of February if possible; on a time line for disability benefits. documented in this encounter Plan of Treatment Not on filedocumented as of this encounter Visit Diagnoses Not on filedocumented in this encounter Care Teams Excellence Coach Relationship Specialty Start Date End Date Oanh Yang, FARHAT PCP - General Family Medicine 09/17/[address] [place] [address] documented as of this encounter
--- OUTSIDE RECORDS SUMMARY | 2022-05-11 02:17 | XMS_ITS | Encounter Summary ---
:1985 Author Organization [facility] [place] [address] Care Team Providers Name Role Phone Oanh Yang APRN Primary Care Provider Encounter Details Date Type Department Care Team Description 06/19/2019 Telephone Neurosurgery at [facility] [place] [address] Social History Tobacco Use Types Packs/Day [...] on filedocumented in this encounter Care Teams System Programmer Relationship Specialty Start Date End Date Oanh Yang APRN PCP - General Family Medicine 09/17/17 [address] [place] [address] documented as of this encounter
--- OUTSIDE RECORDS SUMMARY | 2022-05-11 02:17 | XMS_ITS | Encounter Summary ---
:1985 [place] [address] Care Team Providers Name Role Phone Oanh Yang FARHAT Primary Care Provider Encounter Details Date Type Department Care Team Description 05/17/2019 Ancillary Procedure Radiology Library at Kashif Maxwell [facility] [place] [facility] [place] [address] [place] [id number] [phone] (Wo rk) Social History Tobacco Use Types [...] Name Priority Date/Time Associated Diagnosis Comme nts FILM LIBRARY Routine 05/17/2019 12:00 AM Results for this STORAGE ONLY CT EDT procedure ar e in HEAD the results section. documented in this encounter Results Film Library- Storage Only CT Head (05/17/2019 12:00 AM EDT) Specimen (Source) Anatomical Location Collection Method / Collectio n Time Received Time / Laterality Volume Narrative RAD - 05/19/2019 10:03 PM EDT This exam is auto-finalizing. It's purpo se is for storage only. Kashif Maxwell III, MD IMG FILM LIBRARY ORDERABLES Performing Organization Address City/State/ZIP Code Phon e Number [place], [place] documented in this encounter Visit Diagnoses Not on filedocumented in this encounter Care Teams Sign Maintenance Relationship Specialty Start Date End Date Oanh Yang, OXYGEN PLANT OPERATOR PCP - General Family Medicine 09/17/17 [address] [place] [address] documented as of this encounter
[2022-05-11] MEDS: Albuterol HFA 18 GM 200 PUFF INH IH (09:26)
[2022-05-11] MEDS: Inhaler, Assist Device 1 EACH MC (09:26)
--- NOTE | 2022-05-14 09:30 | W.PFT ---
Date of service: 05/11/22 Time of Service: 08:02 Pulmonary Function Test Result Requesting Provider Lisa Castro Indications: Asthma, cough Interpretation Spirometry: There is no airflow limitation. There is restrictive spirometry. There is no significant bronchodilator response. Lung Volumes: Normal lung volumes. Diffusion Capacity: Normal diffusion. Airway Pressure: Normal airways resistance. Impression Normale pulmonary function testing. The restrictive appearing spirometry is likely pseudo-restriction from obesity given the normal TLC. Clinical Correlation therefore is recommended.
== END 2022-05-11 02:07 | disposition home or self-care (01) ==
LOC: RT 02:06
PROVIDERS: PCP Family Medicine; Visit Provider Nurse Practitioner
DX: Z85.6 Personal history of leukemia (principal); J45.909 Unspecified asthma, uncomplicated; R05.9 Cough, unspecified; Z86.16 Personal history of COVID-19; Z87.891 Personal history of nicotine dependence
CPT/HCPCS: 94060; 94726; 94729

== ENCOUNTER 2022-06-24 06:25 | Emergency (ER) | payer MEDICARE, MEDICAID, SELFPAY ==
--- NOTE | 2022-06-24 06:15 | RT.EKG_ITS ---
APPROVED REPORT Exam: Resting ECG Reason for Exam: chest pain Patient Location: E HR:88 bpm ECG Measurements Heart Rate 88 AXIS CO 152 P 46 QRSd 104 QRS -17 QT 369 T 59 QTc 447 Conclusion Sinus rhythm...normal P axis, V-rate 60- 99 Probable left atrial enlargement...P >50mS, <-0.10mV V1
[2022-06-24 06:37] VITALS: BP 140/73; PULSE 95; RESP 16; TEMP 36.7; O2SAT 92
--- NOTE | 2022-06-24 06:38 | W.ED.GENAD ---
Discharge Plan Disposition Patient Disposition: HOME Condition: Stable Discharge Details Clinical Impression: Asthma, Cough Primary Care Provider: José Miguel Bennett ED Provider: Erik Sanchez Home Meds and New Rx's Prescriptions: New prednisone 20 mg tablet 60 mg PO DAILY 4 Days Qty: 12 0RF doxycycline hyclate 100 mg tablet 100 mg PO BID Qty: 14 0RF Continued vitamin B complex Tablet 1 tab PO DAILY fluoxetine 20 mg capsule 20 mg PO DAILY Qty: 90 3RF albuterol sulfate 90 mcg/actuation HFA aerosol inhaler 2 puff inhalation Q6H PRN (Reason: shortness of breath or wheezing) Qty: 18 3RF fluticasone furoate 27.5 mcg/actuation spray,suspension 1 spray intranasal DAILY Qty: 27.3 3RF Rx Instructions: into each nostril budesonide-formoterol 160-4.5 mcg/actuation HFA aerosol inhaler 2 puff inhalation BID Qty: 10.2 6RF Rx Instructions: 11/28/21-pt states this replaces the 80 mcg-4.5 inhaler. Discharge Instructions Instructions: Acute Cough (ED) Additional Instructions: continue to use your inhalers follow up with your primary care provider within 1 week if you feel more ill, have worsening symptoms or difficulty breathing return to the emergency department Medical Decision Making 36 yo male with hx of asthma comes in with cc of cough for a week. He has had similar episodes in the past and usually is treated with steroids and sometimes antibiotics. He states today he was having a coughing episode. He states when he coughs he has a chest ache. Denies any pain now or radiation of pain, no diaphoresis or n/v. He arrives speaking in full sentences and has wheezing in the lower lobes bilaterally, no jvd, no leg swelling. His symptoms of the cough and the wheezing on exam make asthma the likely cause of his symptoms in the setting of likely uri. He has no fever and appears well so doubt pneumonia. He only had chest aching when he coughs so do not feel workup for entities such as acs or dissection indicated. No pleuritic chest pain and no evidence of dvt on exam so doubt pe. Will treat with duoneb and prednisone. He has also had sinus pressure and nasal congestion for a week, could be sinusitis, given length of time with symptoms will treat with doxy as he has pcn allergy patient feels better and requesting d/c, lungs clear and he is stable, will d/c and have him f/u with pcp, return precautions given Differential Diagnosis Differential Diagnosis: asthma, sinusitis, uri Medical Records Medical records reviewed: Yes I reviewed the patient's medical records. ECG Data Attestation: I personally reviewed and interpreted this ECG (s) as follows: Prior ECG tracings: not available for review Interpretation: sinus rhythm, rate of [address] t wave ischemic findings HPI General Mode of arrival: ambulatory. Date/Time Provider Initiated Documentation: 06/24/22 06:28. Limitations to Documentation: no limitations. Information obtained by: patient. History of Present Illness 36 year old M presents to the emergency department with the chief complaint of cough, described as moderate, Patient started experiencing this week(s) (1) and it has been constant. No relieving factors improve symptom(s), No exacerbating factors reported . Patient notes denies fever/chills. Patient did receive the following treatments prior to arrival, none Related Data Home Medications Medication Instructions Recorded Confirmed fluoxetine 20 mg capsule 20 mg PO DAILY #90 caps 07/10/21 06/24/22 vitamin B complex 1 tab PO DAILY 07/10/21 06/24/22 fluticasone furoate 27.5 1 spray intranasal DAILY #27.3 mL 12/28/21 mcg/actuation nasal spray,suspension budesonide-formoterol HFA 160 2 puff inhalation BID #10.2 grams 01/05/22 06/24/22 mcg-4.5 mcg/actuation aerosol inhaler albuterol sulfate 90 mcg/actuation 2 puff inhalation Q6H PRN 05/02/22 06/24/22 aerosol inhaler shortness of breath or wheezing #18 grams doxycycline hyclate 100 mg tablet 100 mg PO BID #14 tabs 06/24/22 prednisone 20 mg tablet 60 mg PO DAILY 4 days #12 tabs 06/24/22 Previous Rx's Medication Instructions Recorded fluoxetine 20 mg capsule 20 mg PO DAILY #90 caps 07/10/21 fluticasone furoate 27.5 1 spray intranasal DAILY #27.3 mL 12/28/21 mcg/actuation nasal spray,suspension budesonide-formoterol HFA 160 2 puff inhalation BID #10.2 grams 01/05/22 mcg-4.5 mcg/actuation aerosol inhaler albuterol sulfate 90 mcg/actuation 2 puff inhalation Q6H PRN 05/02/22 aerosol inhaler shortness of breath or wheezing #18 grams doxycycline hyclate 100 mg tablet 100 mg PO BID #14 tabs 06/24/22 prednisone 20 mg tablet 60 mg PO DAILY 4 days #12 tabs 06/24/22 Allergies Allergy/AdvReac Type Severity Reaction Status Date / Time Penicillins Allergy Severe Swelling/Ed Verified 06/24/22 06:40 carie asparaginase Allergy Unknown Hives Verified 06/24/22 06:40 sertraline HCl [From Zoloft] Allergy Unknown black out Verified 06/24/22 06:40 hydroxyzine AdvReac Intermediate Other (See Verified 06/24/22 06:40 Comment) General VINCENZO: 4 Review of Systems All systems reviewed & are unremarkable except as noted in HPI and below Constitutional Constitutional: Denies chills, Denies fever(s) and Denies weakness Gastrointestinal Gastrointestinal: Denies abdominal pain, Denies nausea and Denies vomiting Musculoskeletal Musculoskeletal: Denies joint swelling Neurologic Neurologic: Denies weakness PFSH All Active Problems (Updated 06/24/22 @ 07:04 by Erik Sanchez MD) Cough (Acute) Asthma (Chronic) Enteritis (Acute) Low back pain (Acute) Hyperopia of left eye with astigmatism (Acute) Exotropia, right eye (Acute) PSC (posterior subcapsular cataract), right (Acute) Neurocognitive deficits (Acute) Optic atrophy (Acute) PTSD (post-traumatic stress disorder) (Acute) Lymphocytic leukemia (Acute) 8 years old. 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 Bacterial conjunctivitis of right eye (Acute) Anxiety (Chronic) Panic disorder (Acute) Family History Mother Anxiety Asthma Father Diabetes Social History Smoking/Tobacco Use Status: Former Tobacco Use Tobacco: How many years used: 13 Smoking risk assessment performed?: Yes Alcohol Intake: never Drug use: Current Sobriety Substance use type: former substance user and marijuana Details: has been cutting back on marijuana use- smokes about 2x/day. Adopted: No Caregiver/Support person: No Foster care: No Household members: significant other Housing: house Number of Children: 0 Communication Needs: Corrective Lenses Education Level: high school Do you need help understanding health information?: Rarely current occupation: Disabled Sexually active: Yes Do you think of yourself as: straight/heterosexual Current gender identity: male What is your relationship status?: living with partner Panel score (0-1 are the most socially isolated patients): 1 What type of physical activity do you participate in: walking Duration: 15-30 minutes/day Frequency: daily Seatbelt use: always Drive intox or ride w/intox 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: No Working smoke detector in home: Yes Fire extinguisher in home: Yes Carbon monox detector in home: Yes Do you feel safe at home: Yes Do you feel safe in your relationship?: Yes Exam Const General: no acute distress Orientation: alert HENMT Head: normal to inspection Ears: external ears normal General nose exam: external nose normal Mouth: moist mucous membranes Eyes General: appearance normal, both eyes and all related structures Neck Neck: normal visual inspection Resp Effort & Inspection: normal respiratory effort and able to speak in complete sentences Cardio Rate: regular rate Skin General skin exam: no rashes or lesions noted Neuro General: patient alert and patient oriented x3 Extrem General: normal to inspection Psych Mental Status: mental status grossly normal
[2022-06-24] MEDS: Albuterol/Ipratropium 3 ML UPD VIAL UPD (06:59)
[2022-06-24] MEDS: Doxycycline Hyclate 100 MG CAP PO (06:59)
[2022-06-24] MEDS: predniSONE 20 MG TAB 60 MG PO (06:59)
[2022-06-24 07:14] VITALS: PULSE 103; O2SAT 97
== END 2022-06-24 07:20 | disposition home or self-care (01) ==
PROVIDERS: Emergency Provider Emergency Medicine; PCP Family Medicine
DX: J45.909 Unspecified asthma, uncomplicated (principal); R07.9 Chest pain, unspecified; Z87.891 Personal history of nicotine dependence
CPT/HCPCS: 93005; 94640; 99283; 93010; 99284; J7512; J7620

== ENCOUNTER 2022-08-02 10:18 | Outpatient (REF) | payer MEDICARE, MEDICAID, SELFPAY | END 2022-08-02 10:19 | disposition home or self-care (01) | LOC: LBN 10:18 | PROVIDERS: PCP Family Medicine; Visit Provider Nurse Practitioner Family | DX: J02.9 Acute pharyngitis, unspecified (principal) | CPT/HCPCS: 87077; 87070 ==

== ENCOUNTER 2023-01-03 11:56 | Outpatient (CLI) | payer MEDICARE, MEDICAID, SELFPAY ==
--- NOTE | 2023-01-03 11:06 | DI.RAD_ITS ---
Exam(s) XR CHEST 2V PA LATERAL EXAM: XR CHEST 2V PA LATERALzz CLINICAL HISTORY: evlauated pathology, ASTHMA, J45.909 TECHNIQUE: 2D digital imaging was performed. COMPARISON: CR CHEST 2 VIEWS PA,LAT from 12/10/2015 CR,XR XR CHEST 1V IN DI DEPT from 05/14/2021 FINDINGS: HEART: Normal size. Aorta: Not dilated. PULMONARY VASCULATURE: Normal. LUNGS: Clear. PLEURAL SPACE: No pleural effusion or pneumothorax. BONE:Unremarkable for age. IMPRESSION: No acute abnormality. DATA REPOSITORY: RADIATION DOSE DELIVERED:
== END 2023-01-03 12:16 ==
LOC: DI 11:57
PROVIDERS: PCP Family Medicine; Visit Provider Nurse Practitioner Family
DX: J45.909 Unspecified asthma, uncomplicated (principal)
CPT/HCPCS: 71046

== ENCOUNTER 2023-01-05 04:15 | Emergency (ER) | payer MEDICARE, MEDICAID, SELFPAY ==
[2023-01-05 04:25] VITALS: BP 149/93; PULSE 127; RESP 18; TEMP 36.7; O2SAT 95
--- NOTE | 2023-01-05 04:30 | W.ED.GENAD ---
Discharge Plan Disposition Patient Disposition: Home Condition: Good Discharge Details Clinical Impression: Asthma, Bronchitis Primary Care Provider: José Miguel Bennett ED Provider: Sergey Garcia Home Meds and New Rx's Prescriptions: Continued (DME) nebulizers Misc See Rx Instructions .Route Qty: 1 0RF Rx Instructions: As directed, q6 prn with nebulizer solutions ipratropium-albuterol 0.5 mg-3 mg(2.5 mg base)/3 mL solution for nebulization 3 ml inhalation Q6H PRN (Reason: wheezing) Qty: 180 3RF albuterol sulfate 90 mcg/actuation HFA aerosol inhaler 2 puff inhalation Q6H PRN (Reason: shortness of breath or wheezing) Qty: 18 3RF doxycycline hyclate 100 mg capsule 100 mg PO BID Qty: 14 0RF Rx Instructions: Avoid sun exposure. Take with meal. Take 1 pill every 12 hours x 7 days prednisone 20 mg tablet 40 mg PO DAILY Qty: 10 0RF Rx Instructions: take in the morning with food. take 2 pills daily x 5 days vitamin B complex Tablet 1 tab PO DAILY fluoxetine 20 mg capsule 20 mg PO DAILY Qty: 90 3RF budesonide-formoterol 160-4.5 mcg/actuation HFA aerosol inhaler 2 puff inhalation BID Qty: 10.2 6RF Rx Instructions: 11/28/21-pt states this replaces the 80 mcg-4.5 inhaler. Discharge Instructions Instructions: Asthma (ED), Acute Bronchitis (ED) Additional Instructions: At this time you have mild acute bronchitis and an asthma exacerbation. Please continue taking your steroid as directed. If you develop new exacerbation at home, please use your nebulizer as directed. Please continue to take your albuterol inhaler and your Spiriva. If you notice any worsening of your symptoms, or any new symptoms such as vomiting, diarrhea, fever, chills, shortness of breath, chest pain, numbness, weakness, or fainting , please return immediately to the emergency department for reevaluation. Please follow up with your primary care provider as soon as possible for reassessment and reevaluation. As always, it was a pleasure participating in your medical care today. Referrals: José Miguel Bennett DO [Primary Care Provider] - Medical Decision Making Chele is a very pleasant 37-year-old male with a past medical history of chronic exotropia in the right eye, neurocognitive deficits, PTSD, lymphocytic leukemia, anxiety and panic disorder,?and asthma who presents today for asthma exacerbation. Patient states that about a week ago he developed a mild cough, he had also stopped smoking marijuana at that time. He stopped smoking tobacco few years ago. He states he went to the urgent care 2 days ago, where he was diagnosed with bronchitis. He was started on doxycycline and oral prednisone. He has been taking this as directed. He had been showing some improvement however this morning when he woke up he noted significant wheezes. He took 2 puffs from his Ventolin inhaler and then came to the ER for further assessment. He did not use his nebulizer treatments, but he has been taking his Symbicort regularly as directed. He denies any severe chest pain, current fever, numbness or tingling or weakness. No other complaints at this time. No other modifying factors. Physical exam demonstrates diffuse wheezes throughout, worse on the right than the left. No hypoxemia. Differential is highest at this time for asthma exacerbation. Will give 2 breathing treatments with DuoNebs, monitor closely and reassess. Patient may have mild underlying pneumonia, and is on the appropriate therapy already. We will continue to monitor. Chest x-ray was reviewed from his visit 36 hours ago, and this was normal at that time. Reassessment patient's asthma appears notably improved. Oxygenation is excellent. Wheezes have notably improved. Patient feels well. He is slightly tachycardic after breathing treatments, but he otherwise feels well and would like to go home. Recommend continuation on steroids and doxycycline. Discussed protocol for utilizing his inhaler, nebulizer, and antibiotics and steroids. I have extensively reviewed the treatment plan and discharge instructions with the patient and their family. I have addressed all patient concerns at this time. The patient and family was made aware of what symptoms to monitor for that would warrant a return to the emergency department. Discussed the plan with the patient and family, they demonstrate verbal understanding and agreement with our assessment and plan at this time. The documentation in this chart was dictated using [employer] dictation software. Please excuse any dictation errors. HPI General Date/Time Provider Initiated Documentation: 01/05/23 04:23. HPI Narrative: Chele is a very pleasant 37-year-old male with a past medical history of chronic exotropia in the right eye, neurocognitive deficits, PTSD, lymphocytic leukemia, anxiety and panic disorder,?and asthma who presents today for asthma exacerbation. Patient states that about a week ago he developed a mild cough, he had also stopped smoking marijuana at that time. He stopped smoking tobacco few years ago. He states he went to the urgent care 2 days ago, where he was diagnosed with bronchitis. He was started on doxycycline and oral prednisone. He has been taking this as directed. He had been showing some improvement however this morning when he woke up he noted significant wheezes. He took 2 puffs from his Ventolin inhaler and then came to the ER for further assessment. He did not use his nebulizer treatments, but he has been taking his Symbicort regularly as directed. He denies any severe chest pain, current fever, numbness or tingling or weakness. No other complaints at this time. No other modifying factors. Related Data Home Medications Medication Instructions Recorded Confirmed vitamin B complex 1 tab PO DAILY 07/10/21 01/03/23 fluoxetine 20 mg capsule 20 mg PO DAILY #90 caps 07/09/22 01/03/23 budesonide-formoterol HFA 160 2 puff inhalation BID #10.2 grams 07/24/22 01/03/23 mcg-4.5 mcg/actuation aerosol inhaler ipratropium 0.5 mg-albuterol 3 mg 3 ml inhalation Q6H PRN wheezing 11/30/22 01/03/23 (2.5 mg base)/3 mL nebulization #180 mL soln nebulizers #1 ea 11/30/22 01/03/23 albuterol sulfate 90 mcg/actuation 2 puff inhalation Q6H PRN 01/03/23 01/03/23 aerosol inhaler shortness of breath or wheezing #18 grams doxycycline hyclate 100 mg capsule 100 mg PO BID #14 caps 01/03/23 01/03/23 prednisone 20 mg tablet 40 mg PO DAILY #10 tabs 01/03/23 01/03/23 Previous Rx's Medication Instructions Recorded fluoxetine 20 mg capsule 20 mg PO DAILY #90 caps 07/09/22 budesonide-formoterol HFA 160 2 puff inhalation BID #10.2 grams 07/24/22 mcg-4.5 mcg/actuation aerosol inhaler ipratropium 0.5 mg-albuterol 3 mg 3 ml inhalation Q6H PRN wheezing 11/30/22 (2.5 mg base)/3 mL nebulization #180 mL soln nebulizers #1 ea 11/30/22 albuterol sulfate 90 mcg/actuation 2 puff inhalation Q6H PRN 01/03/23 aerosol inhaler shortness of breath or wheezing #18 grams doxycycline hyclate 100 mg capsule 100 mg PO BID #14 caps 01/03/23 prednisone 20 mg tablet 40 mg PO DAILY #10 tabs 01/03/23 Allergies Allergy/AdvReac Type Severity Reaction Status Date / Time Penicillins Allergy Severe Swelling/Ed Verified 01/03/23 09:07 carie cigarette smoke Allergy Intermediate Verified 01/03/23 09:07 asparaginase Allergy Unknown Hives Verified 01/03/23 09:07 sertraline HCl [From Zoloft] Allergy Unknown black out Verified 01/03/23 09:07 hydroxyzine AdvReac Intermediate Other (See Verified 01/03/23 09:07 Comment) General Stated Complaint: RespSymp VINCENZO: 3 Review of Systems All systems reviewed & are unremarkable except as noted in HPI and below PFSH All Active Problems (Updated 01/05/23 @ 05:16 by Sergey Garcia DO) Bronchitis (Acute) Arthritis of knee, right (Acute) Sinus pain (Acute) Asthma (Chronic) Enteritis (Acute) Low back pain (Acute) Hyperopia of left eye with astigmatism (Acute) Exotropia, right eye (Acute) PSC (posterior subcapsular cataract), right (Acute) Neurocognitive deficits (Acute) Optic atrophy (Acute) PTSD (post-traumatic stress disorder) (Acute) Lymphocytic leukemia (Acute) 8 years old. 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 Bacterial conjunctivitis of right eye (Acute) Anxiety (Chronic) Panic disorder (Acute) Family History Mother Anxiety Asthma Father Diabetes Social History Smoking/Tobacco Use Status: Former Tobacco Use Tobacco: How many years used: 13 Smoking risk assessment performed?: Yes Alcohol Intake: never Drug use: Current Sobriety Substance use type: former substance user and marijuana Details: has been cutting back on marijuana use- smokes about 2x/day. Adopted: No Caregiver/Support person: No Foster care: No Household members: significant other Housing: house Number of Children: 0 Communication Needs: Corrective Lenses Education Level: high school Do you need help understanding health information?: Rarely current occupation: Disabled Sexually active: Yes Do you think of yourself as: straight/heterosexual Current gender identity: male What is your relationship status?: living with partner Panel score (0-1 are the most socially isolated patients): 1 What type of physical activity do you participate in: walking Duration: 15-30 minutes/day Frequency: daily Seatbelt use: always Drive intox or ride w/intox 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 3.ENT: Atraumatic external nose and ears. Moist MM. Neck: Symmetric, trachea midline, No thyromegaly. 4.CVS: +S1/S2, No murmurs or gallops. Peripheral pulses 2+ and equal in all extremities. Brisk capillary refill in all extremities. 5.RESP: Unlabored respiratory effort. Notable wheezes throughout. No crackles or rhonchi 6.GI: Soft, Nontender/Nondistended, No hepatosplenomegaly. No guarding or rebound. 7.MSK: Normocephalic/Atraumatic, Extremities w/o deformity or ttp No cyanosis or clubbing, Normal movement of all extremities 8.Skin: Warm, Dry. No rashes or lesions. 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 Sensation grossly intact, no focal neurologic deficits. 10.Psych: (AAO) x3. Appropriate mood and affect Course Vital Signs Vital signs: Vital Signs Temperature 36.7 C 01/05/23 04:25 Pulse 127 H 01/05/23 04:25 Respiratory Rate 18 01/05/23 04:25 Blood Pressure 149/93 H 01/05/23 04:25 Pulse Oximetry 95 01/05/23 04:25 Temperature 36.7 C 01/05/23 04:25 Pulse 127 H 01/05/23 04:25 Respiratory Rate 18 01/05/23 04:25 Blood Pressure 149/93 H 01/05/23 04:25 Blood Pressure Position Sitting 01/05/23 04:25 Pulse Oximetry 95 01/05/23 04:25 Oxygen Delivery Method Room Air 01/05/23 04:25 Oxygen Flow Rate 0 01/05/23 04:25
[2023-01-05] MEDS: Albuterol/Ipratropium 3 ML UPD VIAL 6 ML UPD (04:37)
[2023-01-05 05:04] VITALS: BP 118/59; RESP 18; O2SAT 92
--- NOTE | 2023-01-05 05:07 | NUR.NOTE ---
Nursing Note: Popsicle given to the patient. No distress noted, sitting on the bed and conversing with this RN and SO
[2023-01-05 05:27] VITALS: RESP 18; O2SAT 99
== END 2023-01-05 05:28 | disposition home or self-care (01) ==
PROVIDERS: Emergency Provider Student in an Organized Health Care Education/Training Program; PCP Family Medicine
DX: J45.901 Unspecified asthma with (acute) exacerbation (principal); J20.9 Acute bronchitis, unspecified; Z87.891 Personal history of nicotine dependence
CPT/HCPCS: 94640; 99283; 99284; J7620

== ENCOUNTER 2023-01-15 01:42 | Outpatient (CLI) | payer MEDICARE, MEDICAID, SELFPAY ==
--- NOTE | 2023-01-15 07:00 | DI.RAD_ITS ---
Exam(s) XR KNEE RT 4V AP,LAT,EDWIGE,PAT EXAM: XR KNEE RT 4V AP,LAT,EDWIGE,PAT CLINICAL HISTORY: ? Arthritis under the patella,M17.11,PAIN. TECHNIQUE: 2D digital imaging was performed of the right knee. Four views obtained. Merchant, AP, la teral and PA tunnel views were obtained. COMPARISON: CR XR CHEST 2V PA LATERAL from 01/03/2023 FINDINGS: BONES: No acute fracture is present. There is a well-circumscribed 5.1 x 3.0 cm lytic lesion eccentri david located in the proximal metaphysis of the right tibia. There is no cortical destruction or fr acture associated. No suspicious periosteal reaction is seen. There are enthesophytes seen at the s uperior and inferior patella anteriorly. JOINTS: The knee is normally aligned. No joint effusion is seen. SOFT TISSUE: Normal. IMPRESSION: 1. No significant arthritis. 2. Well-circumscribed 5 x 3 cm lytic lesion located in the proximal metaphysis of the right tibia. D ifferential considerations include the differential for lytic lesions including simple bone cyst or a neurysmal bone cyst. Nonossifying fibroma and fibrous dysplasia should be considered. Neoplastic pr ocess is considered less likely but cannot be entirely excluded. 3. MRI and/or CT may be obtained for further evaluation. DATA REPOSITORY: RADIATION DOSE DELIVERED:
== END 2023-01-15 02:02 ==
LOC: DI 01:42
PROVIDERS: PCP Family Medicine; Visit Provider Family Medicine
DX: M25.561 Pain in right knee (principal); M17.11 Unilateral primary osteoarthritis, right knee; M84.861 Other disorders of continuity of bone, right tibia
CPT/HCPCS: 73564

== ENCOUNTER → 2023-11-25 12:34 | Outpatient (CLI) | payer OTHER, MEDICAID, SELFPAY ==
--- NOTE | 2023-11-25 14:40 | DI.RAD_ITS ---
Exam(s) XR KNEE LT 3V AP,LAT,EDWIGE EXAM: XR KNEE LT 3V AP,LAT,EDWIGE CLINICAL HISTORY: M25.562 pain and cracking left knee. TECHNIQUE: 2D digital imaging was performed of the left knee. Three images were obtained. AP, late ral and PA tunnel views were obtained. COMPARISON: No priors for comparison. FINDINGS: BONES: No acute fracture is present. No bony destructive lesion is seen. There are enthesophytes at the anterior patella. JOINTS: The knee is normally aligned. No joint effusion is seen. No loose body. SOFT TISSUE: Normal. IMPRESSION: No acute abnormality. If there is concern for internal derangement, MRI may be obtained for further evaluation. DATA REPOSITORY: RADIATION DOSE DELIVERED:
== END ==
PROVIDERS: PCP Nurse Practitioner Family; Visit Provider Nurse Practitioner Family
DX: M25.562 Pain in left knee (principal)
CPT/HCPCS: 73562

== ENCOUNTER 2023-11-26 02:43 | Outpatient (CLI) | payer OTHER, MEDICAID, SELFPAY ==
[2023-11-26 12:28] LABS: ALT 36 U/L (16-63); AST 21 U/L (15-37); Albumin 4.2 g/dL (3.4-5.0); Alkaline Phosphatase 94 U/L (46-116); Anion Gap 5.4 mmol/L (3-11); BUN 10 mg/dL (7-18); Bilirubin, Total 0.6 mg/dL (0.2-1.0); CO2 32.6 mmol/L (21.0-32.0); Calcium 9.6 mg/dL (8.5-10.1); Calculated LDL 143 mg/dL (<100); Chloride 102 mmol/L (98-107); Cholesterol 216 mg/dL (<200); Estimated GFR 99.41 (mL/min/1.73m2); Glucose 95 mg/dL (74-106); HDL Cholesterol 44 mg/dL (40-60); Sodium 140 mmol/L (136-145); Total Protein 8.7 g/dL (6.4-8.2); Triglyceride 149 mg/dL (<150)
[2023-11-26 18:46] LABS: Hepatitis C Ab w Rflx HCV PCR Negative (Negative)
[2023-11-26 18:48] LABS: HIV-1/2 Ag & Ab Screen Negative (Negative)
== END 2023-11-26 02:44 | disposition home or self-care (01) ==
LOC: LOS 02:43
PROVIDERS: PCP Nurse Practitioner Family; Visit Provider Nurse Practitioner Family
DX: Z11.59 Encounter for screening for other viral diseases (principal); Z13.220 Encounter for screening for lipoid disorders; Z11.4 Encounter for screening for human immunodeficiency virus [HIV]
CPT/HCPCS: 36415; 80053; 80061; 86803; 87389

== ENCOUNTER 2023-11-30 15:02 | Emergency (ER) | payer OTHER, MEDICAID, SELFPAY ==
[2023-11-30 15:12] VITALS: BP 142/92; PULSE 93; RESP 18; TEMP 37.2; O2SAT 100
[2023-11-30 15:20] VITALS: BP 142/92; PULSE 93; RESP 18; TEMP 37.2; O2SAT 100
--- NOTE | 2023-11-30 15:29 | W.ED.GENAD ---
HPI General Date/Time Provider Initiated Documentation: 11/30/23 15:23. Limitations to Documentation: no limitations. Information obtained by: patient. HPI Narrative: 38-year-old gentleman without significant past medical history presents for evaluation of nasal congestion. He reports that his nose has been stuffy for a few weeks. He has tried Sudafed. He used Afrin 1 time. He denies any fever. He just reports facial pressure, he denies significant drainage from his nose. No sore throat. Related Data Home Medications Medication Instructions Recorded Confirmed vitamin B complex 1 tab PO DAILY 07/10/21 11/30/23 nebulizers #1 ea 11/30/22 11/25/23 albuterol sulfate 90 mcg/actuation 2 puff inhalation Q6H PRN 07/22/23 11/30/23 aerosol inhaler shortness of breath or wheezing #18 grams fluticasone propionate 230 2 puff inhalation BID #12 grams 07/22/23 11/30/23 mcg-salmeterol 21 mcg/actuation HFA inhaler (Advair HFA) inhalational spacing device #1 ea 07/22/23 11/25/23 (Aerochamber MV spacer) ipratropium 0.5 mg-albuterol 3 mg 3 ml inhalation Q6H PRN wheezing 07/22/23 11/30/23 (2.5 mg base)/3 mL nebulization #180 mL soln fluoxetine 20 mg capsule 20 mg PO DAILY #90 caps 08/18/23 11/30/23 Previous Rx's Medication Instructions Recorded nebulizers #1 ea 11/30/22 albuterol sulfate 90 mcg/actuation 2 puff inhalation Q6H PRN 07/22/23 aerosol inhaler shortness of breath or wheezing #18 grams fluticasone propionate 230 2 puff inhalation BID #12 grams 07/22/23 mcg-salmeterol 21 mcg/actuation HFA inhaler (Advair HFA) inhalational spacing device #1 ea 07/22/23 (Aerochamber MV spacer) ipratropium 0.5 mg-albuterol 3 mg 3 ml inhalation Q6H PRN wheezing 07/22/23 (2.5 mg base)/3 mL nebulization #180 mL soln fluoxetine 20 mg capsule 20 mg PO DAILY #90 caps 08/18/23 Allergies Allergy/AdvReac Type Severity Reaction Status Date / Time Penicillins Allergy Severe Swelling/Ed Verified 11/30/23 15:14 carie cigarette smoke Allergy Intermediate Verified 11/30/23 15:14 asparaginase Allergy Unknown Hives Verified 11/30/23 15:14 sertraline HCl [From Zoloft] Allergy Unknown black out Verified 11/30/23 15:14 hydroxyzine AdvReac Intermediate Other (See Verified 11/30/23 15:14 Comment) General Stated Complaint: RespSymp VINCENZO: 4 Exam Narrative Exam Narrative: Review of Systems: All systems reviewed & are unremarkable except as noted in HPI and below Well-developed, no acute distress NCAT exotropia No sinus tenderness to palpation, no significant nasal edema, bilateral ears with clear TMs, no effusion, bulging or erythema Posterior oropharynx with mild erythema, no significant tonsillar enlargement or exudate RRR Unlabored respiratory effort Nondistended abdomen Extremities w/o deformity, no cyanosis, no edema No rashes or lesions. no focal neurologic deficits Appropriate mood and affect Course Vital Signs Vital signs: Vital Signs Temperature 37.2 C 11/30/23 15:12 Pulse 93 H 11/30/23 15:12 Respiratory Rate 18 11/30/23 15:12 Blood Pressure 142/92 H 11/30/23 15:12 Pulse Oximetry 100 11/30/23 15:12 Temperature 37.2 C 11/30/23 15:20 Temperature Source Temporal Artery Scan 11/30/23 15:20 Pulse 93 H 11/30/23 15:20 Respiratory Rate 18 11/30/23 15:20 Respiratory Effort Normal 11/30/23 15:20 Respiratory Depth Normal 11/30/23 15:20 Blood Pressure 142/92 H 11/30/23 15:20 Blood Pressure Position Sitting 11/30/23 15:20 Pulse Oximetry 100 11/30/23 15:20 Oxygen Delivery Method Room Air 11/30/23 15:20 Oxygen Flow Rate 0 11/30/23 15:20 Medical Decision Making Evaluation of sinus congestion. Patient is well-appearing with no signs of respiratory distress. Denies any trauma. Has no fever. Has not fully utilized laig-ogy-frbzkec medications for treatment of the symptoms. Will give a Kenalog shot and provided a list of medications to try for relief and supportive care care guidance discussed. Recommend close follow-up with primary care provider if symptoms are not improving. Medical Records Medical records reviewed: Yes I reviewed the patient's medical records. Quality:SDOH Health Related Social Needs: No Data to Display PFSH All Active Problems Congestion of nasal sinus (Acute) Pes planus of both feet (Acute) Left knee pain (Acute) Lytic lesion of bone on x-ray (Acute) Meningioma (Acute) Abnormal finding on radiology exam (Acute) Arthritis of knee, right (Acute) Asthma (Chronic) Enteritis (Acute) Low back pain (Acute) Hyperopia of left eye with astigmatism (Acute) Exotropia, right eye (Acute) PSC (posterior subcapsular cataract), right (Acute) Neurocognitive deficits (Acute) Optic atrophy (Acute) PTSD (post-traumatic stress disorder) (Acute) Lymphocytic leukemia (Acute) 8 years old. 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 Anxiety (Chronic) Panic disorder (Acute) Medical History Acute bronchitis Sinus pain Bacterial conjunctivitis of right eye Family History Mother Anxiety Asthma Depression Father Diabetes Asthma Depression Hypertension Social History Smoking/Tobacco Use Status: Former Tobacco Use Tobacco: How many years used: 13 Second Hand Exposure: Yes Smoking risk assessment performed?: Yes Alcohol Intake: never Drug use: Occasionally Substance use type: former substance user and marijuana Details: has been cutting back on marijuana use- smokes about 2x/day. Adopted: No Caregiver/Support person: No Foster care: No Household members: significant other Housing: house Number of Children: 0 Communication Needs: None and Corrective Lenses Education Level: college Details: some college classes Do you need help understanding health information?: Rarely current occupation: Disabled Pets and animals: Yes Sexually active: Yes Do you think of yourself as: straight/heterosexual Current gender identity: male What is your relationship status?: never How often do you talk on the phone with friends or family?: twice per week How often do you get together with friends or relatives?: twice per week How often do you attend anabaptist or shinto services?: decline to answer Panel score (0-1 are the most socially isolated patients): 1 What type of physical activity do you participate in: walking Duration: 15-30 minutes/day Frequency: daily Alaina/Moravian: Michael Seatbelt use: always Helmet use: Yes Drive intox or ride w/intox local hazmat driver: No Working smoke detector in home: No Fire extinguisher in home: No Carbon monox detector in home: No Firearms in home: No Do you feel safe at home: Yes Do you feel safe in your relationship?: Yes Discharge Plan Disposition Patient Disposition: Home Discharge Details Clinical Impression: Congestion of nasal sinus Primary Care Provider: Mundo Parry ED Provider: Nickie Harman Home Meds and New Rx's Prescriptions: No Action (DME) nebulizers Misc See Rx Instructions .Route Qty: 1 0RF Rx Instructions: As directed, q6 prn with nebulizer solutions vitamin B complex Tablet 1 tab PO DAILY albuterol sulfate 90 mcg/actuation HFA aerosol inhaler 2 puff inhalation Q6H PRN (Reason: shortness of breath or wheezing) Qty: 18 3RF fluticasone propion-salmeterol [Advair HFA] 230-21 mcg/actuation HFA aerosol inhaler 2 puff inhalation BID Qty: 12 11RF ipratropium-albuterol 0.5 mg-3 mg(2.5 mg base)/3 mL solution for nebulization 3 ml inhalation Q6H PRN (Reason: wheezing) Qty: 180 3RF (DME) Aerochamber MV Spacer See Rx Instructions .Route Qty: 1 0RF Rx Instructions: As directed fluoxetine 20 mg capsule 20 mg PO DAILY Qty: 90 3RF Discharge Instructions Additional Instructions: Please visit your local pharmacy and get Flonase to use daily, Claritin to take daily, [id number] Mucinex to take twice daily. You can use Afrin, 2 puffs in each nostril twice a day for only 3 days. You can use nasal saline as much as possible. Make sure to stay hydrated. Use a humidifier in your home.
[2023-11-30] MEDS: Triamcinolone 40 MG/ML VIAL IM (15:46)
== END 2023-11-30 15:51 | disposition home or self-care (01) ==
PROVIDERS: Emergency Provider Emergency Medicine; PCP Nurse Practitioner Family
DX: R09.81 Nasal congestion (principal); J34.89 Other specified disorders of nose and nasal sinuses
CPT/HCPCS: 96372; 99284; J3301

== ENCOUNTER 2024-03-24 12:10 | Outpatient (REF) | payer OTHER, MEDICAID, SELFPAY | END 2024-03-24 12:11 | disposition home or self-care (01) | LOC: LBN 12:10 | PROVIDERS: PCP Nurse Practitioner Family; Visit Provider Physician Assistant | DX: L08.89 Other specified local infections of the skin and subcutaneous tissue (principal); L98.8 Other specified disorders of the skin and subcutaneous tissue; S61.252A Open bite of right middle finger without damage to nail, initial encounter; W55.01XA Bitten by cat, initial encounter | CPT/HCPCS: 87077; 87070; 87186; 87205 ==

== ENCOUNTER 2024-06-17 10:07 | Outpatient (REF) | payer OTHER, MEDICAID, SELFPAY ==
--- NOTE | 2024-06-17 09:15 | SKI_PTH ---
PATIENT: Chele Kerr LOC: [facility] U#:[id number] AGE/SX: 38/M ROOM: RE06/17/[address]: Mundo Durham DNP : 1985 BED: DIS: 06/17/2024 SPEC #: [id number] RECD: 06/17/24 13:08 STATUS: JORGE REQasim #: [id number] FREDI: 06/17/24 09:[address]: Mundo Parry DEPT: Surgical Specimen RECD BY: Gretchen Villafuerte Tissues: 1 - SKIN BIOPSY(SHAVE/PUNCH) Procedures: GROSS AND MICRO LEVEL 3 Comments: [id number]
== END 2024-06-17 10:08 | disposition home or self-care (01) ==
LOC: LBN 10:07
PROVIDERS: PCP Nurse Practitioner Family; Visit Provider Nurse Practitioner Family
DX: Z41.9 Encounter for procedure for purposes other than remedying health state, unspecified (principal); L98.9 Disorder of the skin and subcutaneous tissue, unspecified
CPT/HCPCS: 88304; 88305

== ENCOUNTER 2024-07-03 00:34 | Outpatient (CLI) | payer OTHER, MEDICAID, SELFPAY ==
--- NOTE | 2024-07-03 07:30 | DI.US_ITS ---
APPROVED REPORT EXAM: Comprehensive 2D, Doppler, and color-flow Echocardiogram Patient Location: Out-Patient Compo Caster: Davi Cohn RDCS (AE) Other Information Study Quality: Adequate Conclusion Normal left ventricular wall thickness and chamber size. Ejection fraction is 60%. Wall motion is n ormal Normal right ventricular size and function Both atria are normal in size There is no structural or hemodynamically significant valvular disease Wall motion Left Ventricle The left ventricle is normal size. The left ventricular systolic function is normal. The left ventric ular ejection fraction is within the normal range. There is normal left ventricular wall thickness. T here is normal LV segmental wall motion. There is no ventricular septal defect visualized. LVEF is 60 %. Right Ventricle The right ventricle is normal size. The right ventricular systolic function is normal. Atria The left atrium size is normal. The right atrium size is normal. The interatrial septum is intact wit h no evidence for an atrial septal defect. Aortic Valve The aortic valve is normal in structure. Aortic valve is trileaflet. There is no aortic valvular sten osis. No aortic regurgitation is present. Mitral Valve The mitral valve is normal in structure. No evidence of mitral valve stenosis. Trace mitral regurgita tion. Tricuspid Valve The tricuspid valve is normal in structure. There is no tricuspid valve stenosis. Trace tricuspid reg urgitation. The RVSP is 10 mmHg. Pulmonic Valve The pulmonary valve is normal in structure. There is no pulmonic valvular stenosis. There is no pulmo linden valvular regurgitation. Great Vessels The aortic root is normal in size. The ascending aorta is normal in size. Aortic arch is not well vis ualized. IVC is normal in size and collapses >50% with inspiration. Pericardium There is no pericardial effusion. 2D Dimensions IVSD d PLAX 0.84 cm M: 0.6-1.2 Ao Root d 3.14 cm M: 3.1 - 3.7 LVPW d PLAX 0.83 cm M: 0.6 - 1.2 Ao Asc Diam d 3.00 cm M: 2.6 - 3.4 LVID d PLAX 4.55 cm M: 4.2 - 5.8 LVDs 3.12 cm M: 2.5 - 4.0 LV EF Teichholz 59.5 % FS 31.51 % LV EDV (Teich) 94.9 mL LV ESV (Teich) 38.4 mL Stroke Vol Index (Teich) 27.42 M-Mode TAPSE 1.89 cm (M/F) >1.7 Auto EF LV EDV A4C 138.2 mL LV EDV A2C 204.6 mL LV EDV BP 168.6 mL LV ESV A4C 58.6 mL LV ESV A2C 89.3 mL LV ESV BP 72.6 mL LVEF(%) A4C 57.6 % LVEF(%) A2C 56.4 % LVEF(%) BP 57.0 % LV SV A4C 79.5 ml LV SV A2C 115.3 ml LV SV BP 96.1 ml LV CO A4C 5.0 L/min LV CO A2C 7.7 L/min LV CO BP 6.4 L/min HR A4C 62.94 BPM HR A2C 66.92 BPM LV EDV Index (BP) LA Volume LA Length A4C 3.7 cm LA Length A2C LA Area A4C s 8.87 cm2 LA Area A2C s LA Vol A4C A-L 18.20 mL LA Vol A2C A-L LA Vol Biplane A-L LA Vol A4C MOD 17.4 mL LA Vol A2C MOD LA Vol BP MOD RA Volume RA Area A4C 8.1 cm2 RA ESV A4C (A-L) 14.5mL RA Vol/BSA A4C A-L RA Length A4C 3.8 cm RA ESV A4C (MOD) 13.5mL LV Diastology MV E' medial 0.064 (>0.07 m/s) MV E Vmax 0.66 (0.4-1.3 m/s) MV E/E' MED 10.36 (<14) MV A Vmax 0.70 (0.4-1.3 m/s) MV E' lateral 0.085 (>0.1 m/s) E/A Ratio 0.9 MV E/E' LAT 7.78 (<14) MV E' Average 0.074 m/s MV E/E'(average) 8.89 Aortic Valve AoV Vmax 1.12 m/s LVOT Vmax 0.92 m/s AoV Peak Grad 5.0 mmHg LVOT Peak Grad 3.4 mmHg AoV Area (Vmax) 2.69 cm2 LVOT VTI 0.178 m AoV VTI 0.237 m LVOT Mean Grad 1.8 mmHg AoV Mean Harshil. 0.83 m/s LVOT SV 58.10 mL AoV Mean Grad 3.0 mmHg LVOT Diam s 2.00 cm AoV Area (VTI) 2.45 cm2 AV Regurg Peak Gr. 5.01 mmHg Velocity Ratio 0.82 Mitral Valve MV DT 232 (160-240 msec) Pulmonary Valve PV Vmax 0.81 (0.5-1.5 m/s) RVOT Vmax 0.58 m/s PV Peak Grad 2.6 mmHg RVOT Peak Gr. 1.4 mmHg PV Mean Harshil 0.56 m/s RVOT VTI 0.117 m PV Mean Grad 1.5 mmHg RVOT Mean Gr. 0.8 mmHg Tricuspid Valve RA Pressure 3.00 mmHg TR Vmax 1.32 m/s TR Peak Grad 6.9 mmHg RVSP (TR) 10.0 mmHg
== END 2024-07-03 00:54 ==
LOC: DI 00:35
PROVIDERS: PCP Nurse Practitioner Family; Visit Provider Nurse Practitioner Family
DX: Z51.81 Encounter for therapeutic drug level monitoring (principal)
CPT/HCPCS: 93306

== ENCOUNTER → 2024-09-09 15:02 | Outpatient (BNVA) | payer OTHER, MEDICAID, SELFPAY | PROVIDERS: PCP Nurse Practitioner Family; Referring Provider Nurse Practitioner Family; Visit Provider Podiatrist | DX: M72.2 Plantar fascial fibromatosis (principal); M25.571 Pain in right ankle and joints of right foot; M21.41 Flat foot [pes planus] (acquired), right foot; M21.42 Flat foot [pes planus] (acquired), left foot; M25.572 Pain in left ankle and joints of left foot | CPT/HCPCS: 20550; 99213; J0702; J1100 ==

== ENCOUNTER → 2024-09-17 08:18 | Outpatient (BNVA) | payer OTHER, MEDICAID, SELFPAY | PROVIDERS: PCP Nurse Practitioner Family; Referring Provider Nurse Practitioner Family; Visit Provider Physician Assistant Surgical | DX: J45.909 Unspecified asthma, uncomplicated (principal); Z85.6 Personal history of leukemia; Z92.3 Personal history of irradiation; Z87.891 Personal history of nicotine dependence | CPT/HCPCS: 36415; 99215 ==

== ENCOUNTER 2024-09-17 13:03 | Outpatient (REF) | payer OTHER, MEDICAID, SELFPAY ==
[2024-09-17 12:32] LABS: Abs Immature Grans 0.03 10^3/uL (0.0-0.06); Absolute Basophil Count 0.08 10^3/uL (0.0-0.2); Absolute Eosinophil Count 0.56 10^3/uL (0.0-0.7); Absolute Lymphocyte Count 2.96 10^3/uL (1.2-3.4); Absolute Monocyte Count 1.15 10^3/uL (0.1-0.8); Basophils % 0.7 %; HCT 44.1 % (40.0-50.0); HGB 14.3 g/dL (13.5-17.5); Immature Grans % 0.3 %; Lymphocytes % 26.2 %; MCH 29.5 pg (27.0-33.0); MCHC 32.4 % (32.0-36.0); MCV 91 fL (80-95); MPV 9.9 fL (8.0-11.0); Monocytes % 10.2 %; Neutrophils % 57.6 %; Platelet Count 392 10^3/uL (130-400); RBC 4.85 10^6/uL (4.36-5.78); RDW 13.1 % (11.8-14.1); RDW-SD 43.4 fL; WBC 11.29 10^3/uL (4.4-10.8)
[2024-09-18 09:57] LABS: IgE 573 IU/mL (<158)
== END 2024-09-17 13:04 | disposition home or self-care (01) ==
LOC: LBN 13:03
PROVIDERS: PCP Nurse Practitioner Family; Visit Provider Physician Assistant Surgical
DX: J45.909 Unspecified asthma, uncomplicated (principal)
CPT/HCPCS: 82785; 85025

== ENCOUNTER 2024-09-30 01:46 | Outpatient (CLI) | payer OTHER, MEDICAID, SELFPAY ==
--- NOTE | 2024-09-30 13:48 | DI.RAD_ITS ---
Exam(s) XR ANKLE RT 2V XR ANKLE LT 2V EXAM: XR ANKLE LT 2V CLINICAL HISTORY: Pain in left ankle,m25.572 TECHNIQUE: 2D digital imaging was performed. Three views of both ankles. COMPARISON: No exams were available for comparison FINDINGS: BONES: No acute fracture is present. No bony destructive lesion is seen. Symmetric bilateral enthes ophytes at the Achilles insertion. No bony erosions. JOINTS:The ankle mortise is normally aligned. Joint spaces are maintained. No significant degenera tive changes. SOFT TISSUE: Normal. IMPRESSION: Bilateral calcaneal enthesophytes. DATA REPOSITORY: RADIATION DOSE DELIVERED:
--- NOTE | 2024-09-30 13:48 | DI.RAD_ITS ---
Exam(s) XR FOOT LT COMPLETE XR FOOT RT COMPLETE EXAM: XR FOOT LT COMPLETE CLINICAL HISTORY: Pain,pes planus both feet,m21.42. TECHNIQUE: 2D digital imaging was performed. Three views of both feet. COMPARISON: CR XR FOOT RT COMPLETE from 09/30/2024 FINDINGS: BONES: No acute fracture is present. No bony destructive lesion is seen. Small bilateral accessory naviculars. Enthesophytes at the Achilles insertions bilaterally. JOINTS: No dislocation present. Joint spaces are maintained. Plantar arch is maintained bilaterall y. SOFT TISSUE: Normal. IMPRESSION: Bilateral calcaneal enthesophytes. DATA REPOSITORY: RADIATION DOSE DELIVERED:
== END 2024-09-30 02:06 ==
LOC: DI 01:46
PROVIDERS: PCP Nurse Practitioner Family; Visit Provider Podiatrist
DX: M77.32 Calcaneal spur, left foot (principal); M77.31 Calcaneal spur, right foot
CPT/HCPCS: 20550; 73600; 73630

== ENCOUNTER → 2024-11-11 14:04 | Outpatient (BNVA) | payer MEDICARE, SELFPAY | PROVIDERS: PCP Nurse Practitioner Family; Referring Provider Nurse Practitioner Family; Visit Provider Podiatrist | DX: M25.571 Pain in right ankle and joints of right foot (principal); M25.572 Pain in left ankle and joints of left foot; M72.2 Plantar fascial fibromatosis; M21.41 Flat foot [pes planus] (acquired), right foot; M21.42 Flat foot [pes planus] (acquired), left foot; B35.3 Tinea pedis | CPT/HCPCS: 20550; J0702; J1100 ==

== ENCOUNTER → 2024-11-25 12:44 | Outpatient (BNVA) | payer MEDICARE, MEDICAID, SELFPAY | PROVIDERS: PCP Nurse Practitioner Family; Referring Provider Nurse Practitioner Family; Visit Provider Physician Assistant Surgical | DX: J45.50 Severe persistent asthma, uncomplicated (principal) | CPT/HCPCS: 96372 ==

== ENCOUNTER 2024-12-08 14:48 | Outpatient (CLI) | payer MEDICARE, MEDICAID, SELFPAY ==
--- NOTE | 2024-12-08 14:15 | DI.RAD_ITS ---
Exam(s) XR CHEST 2V PA LATERAL EXAM: XR CHEST 2V PA LATERAL CLINICAL HISTORY: eval pna, cough, R05.9. TECHNIQUE: 2D digital imaging was performed. COMPARISON: CR XR CHEST 2V PA LATERAL from 01/03/2023 FINDINGS: 2 views: Heart size is normal. The mediastinum is not widened. Lungs are clear. No infiltrates nor pleural effusions. IMPRESSION: No acute pulmonary findings. DATA REPOSITORY: RADIATION DOSE DELIVERED:
== END 2024-12-08 15:08 ==
LOC: DI 14:48
PROVIDERS: PCP Nurse Practitioner Family; Visit Provider Nurse Practitioner Family
DX: R05.9 Cough, unspecified (principal)
CPT/HCPCS: 71046

== ENCOUNTER 2025-01-18 13:43 | Outpatient (CLI) | payer MEDICARE, MEDICAID, SELFPAY ==
--- NOTE | 2025-01-18 11:00 | DI.RAD_ITS ---
Exam(s) XR CHEST 2V PA LATERAL EXAM: XR CHEST 2V PA LATERAL CLINICAL HISTORY: Asthma, J45.909, ? pneumonia. TECHNIQUE: 2D digital imaging was performed. COMPARISON: CR,XR XR CHEST 1V IN DI DEPT from 05/14/2021 CR XR CHEST 2V PA LATERAL from 01/03/2023 CR XR CHEST 2V PA LATERAL from 12/08/2024 FINDINGS: 2 views: Heart size is normal. The mediastinum is not widened. Right lung is clear. There is slightly increased markings in the left infrahilar region. There is a lso a suggestion of a nodular density behind the left side of the heart measuring approximately 2 x 1 .5 cm. Remainder of the lung echols appear clear. No pleural effusions. No pneumothorax. IMPRESSION: Nodular infiltrate in the left lower lobe retrocardiac region. Measures approximately [address] scan. DATA REPOSITORY: RADIATION DOSE DELIVERED:
== END 2025-01-18 14:03 ==
LOC: DI 13:44
PROVIDERS: PCP Nurse Practitioner Family; Visit Provider Nurse Practitioner Family
DX: J45.909 Unspecified asthma, uncomplicated (principal); R91.8 Other nonspecific abnormal finding of lung field
CPT/HCPCS: 71046

== ENCOUNTER 2025-01-22 00:52 | Outpatient (CLI) | payer MEDICARE, MEDICAID, SELFPAY ==
--- NOTE | 2025-01-22 15:33 | DI.CT_ITS ---
Exam(s) CT CHEST WO EXAM: CT CHEST WO CLINICAL HISTORY: F/U XRAY,INFILTRATE,R93.89 TECHNIQUE: Imaging Protocol: Axial computed tomography images with coronal and sagittal reformatted images were created and reviewed. Computer aided detection (CAD) was utilized. CONTRAST MATERIAL: Noncontrast COMPARISON: CR XR CHEST 2V PA LATERAL from 12/08/2024 CR XR CHEST 2V PA LATERAL from 01/18/2025 FINDINGS: Pulmonary parenchyma: No consolidation. No dominant measurable mass. Tracheobronchial tree: No bronchiectasis or mucous plugging. Mediastinum and Марина: No dominant adenopathy or fluid collection. Pleura: No effusion. No pneumothorax. Heart: The heart is not dilated. No coronary artery calcifications are seen. Aorta: Thoracic aorta non-dilated. No atherosclerotic changes. Pulmonary arteries: Normal diameter. Upper abdomen: No acute findings. Bones: Minimaldegenerative changes in the spine. Soft tissues: Mild bilateral gynecomastia. IMPRESSION: Negative chest CT. No evidence of mass or infiltrate. RADIATION DOSE DELIVERED: Total DLP DATA REPOSITORY: All CT scans at this facility are submitted to the National Radiology Data Registry (NRDR) Dose Index Registry (DIR) with the [employer] (A[employer]). RADIATION OPTIMIZATION: All CT scans at this facility use at least one of these dose optimization te chniques: automated exposure control; mA and/or kV adjustment per patient size (includes targeted exa ms where dose is matched to clinical indication); or iterative reconstruction.
== END 2025-01-22 01:12 ==
LOC: DI 00:52
PROVIDERS: PCP Nurse Practitioner Family; Visit Provider Nurse Practitioner Family
DX: R93.89 Abnormal findings on diagnostic imaging of other specified body structures (principal)
CPT/HCPCS: 71250

== ENCOUNTER → 2025-06-08 08:47 | Outpatient (BNVA) | payer MEDICARE, MEDICAID, SELFPAY | PROVIDERS: PCP Nurse Practitioner Family; Referring Provider Nurse Practitioner Family; Visit Provider Physician Assistant Surgical | DX: J45.909 Unspecified asthma, uncomplicated (principal); Z87.891 Personal history of nicotine dependence | CPT/HCPCS: 99214 ==

== ENCOUNTER 2025-08-03 10:38 | Outpatient (CLI) | payer MEDICARE, MEDICAID, SELFPAY ==
[2025-08-03 14:10] LABS: HCT 42.2 % (40.0-50.0); HGB 13.7 g/dL (13.5-17.5); MCH 29.0 pg (27.0-33.0); MCHC 32.5 % (32.0-36.0); MCV 89 fL (80-95); MPV 9.6 fL (8.0-11.0); Platelet Count 428 10^3/uL (130-400); RBC 4.73 10^6/uL (4.36-5.78); RDW 13.1 % (11.8-14.1); RDW-SD 42.6 fL; WBC 9.57 10^3/uL (4.4-10.8)
[2025-08-03 14:25] LABS: Hemoglobin A1C 5.4 % (<5.7)
[2025-08-03 14:27] LABS: ALT 30 U/L (16-63); AST 15 U/L (15-37); Albumin 3.9 g/dL (3.4-5.0); Alkaline Phosphatase 119 U/L (46-116); Anion Gap 7.5 mmol/L (3-11); BUN 10 mg/dL (7-18); Bilirubin, Total 0.3 mg/dL (0.2-1.0); CO2 31.5 mmol/L (21.0-32.0); Calcium 9.5 mg/dL (8.5-10.1); Calculated LDL 148 mg/dL (<100); Chloride 103 mmol/L (98-107); Cholesterol 212 mg/dL (<200); Estimated GFR 88.12 (mL/min/1.73m2); Glucose 124 mg/dL (74-106); HDL Cholesterol 36 mg/dL (>or=40); Potassium 4.3 mmol/L (3.5-5.1); Sodium 142 mmol/L (136-145); Total Protein 8.1 g/dL (6.4-8.2); Triglyceride 140 mg/dL (<150)
== END 2025-08-03 10:39 | disposition home or self-care (01) ==
PROVIDERS: PCP Nurse Practitioner Family; Visit Provider Nurse Practitioner Family
DX: C91.90 Lymphoid leukemia, unspecified not having achieved remission (principal); R73.03 Prediabetes
CPT/HCPCS: 36415; 80053; 80061; 85027; 83036